=== PATIENT | female | born 1995 | race Two or more races ===

== ENCOUNTER 2018-07-24 17:47 | Emergency (ER) | payer OTHER ==
[~2018-07-24] VITALS: Ht 165.1 cm; Wt 68.0 kg
[2018-07-24 19:23] LABS: Basophils # (auto) 0.1 uL; Basophils % (auto) 0.7 % (0.0-2.0); Eosinophils # (auto) 0.2 uL; Eosinophils % (auto) 1.9 % (0.0-7.0); Hematocrit 40.4 % (36.0-46.0); Hemoglobin 13.7 g/dL (12.2-16.2); Lymphocytes # (auto) 2.2 uL; Lymphocytes % (auto) 25.2 % (10.0-50.0); Mean Corpuscular Hemoglobin 30.3 pg (28.0-32.0); Mean Corpuscular Hgb Conc. 33.9 g/dL (32.0-36.0); Mean Corpuscular Volume 89.3 fL (80.0-100.0); Monocytes # (auto) 0.6 uL; Monocytes % (auto) 7.1 % (0.0-12.0); Neutrophils # (auto) 5.8 uL; Neutrophils % (auto) 65.1 % (37.0-80.0); Platelet Count (auto) 254 10^3/uL (140-450); Red Blood Cells 4.52 10^6/uL (4.0-5.20); Red Cell Distribution Width 12.5 % (11.8-14.3); White Blood Cell 8.9 10^3/uL (4.4-10.8)
[2018-07-24 19:30] LABS: Albumin 3.9 g/dL (3.4-5.0); Potassium 3.5 mmol/L (3.5-5.1)
[2018-07-24 19:34] LABS: BUN/Creatinine Ratio 15.9; Bilirubin, Total 0.3 mg/dL (0.2-1.0); Total Protein 6.8 g/dL (6.4-8.2)
[2018-07-24 20:37] LABS: Urine Bacteria NONE SEEN /hpf (None Seen); Urine Blood Negative /uL (Negative); Urine WBC <1 /hpf (0 - 5)
[2018-07-24 20:47] LABS: Alcohol, Urine < 3.0 mg/dL (0-5); Amphetamine Screen, Urine NEGATIVE (NEGATIVE); Barbiturate Scree,Urine NEGATIVE (NEGATIVE); Benzodiazephine Screen, Urine NEGATIVE (NEGATIVE); Cannabinoid Screen, Urine NEGATIVE (NEGATIVE); Cocaine Screen, Urine NEGATIVE (NEGATIVE); Opiate Scree,Urine NEGATIVE (NEGATIVE); Phencyclidine Screen, Urine NEGATIVE (NEGATIVE)
[2018-07-24 20:48] LABS: Urine Pregnacy Test Negative (Negative)
[2018-07-25 02:11] VITALS: BP 97/70
== END 2018-07-25 00:27 | disposition home or self-care (01) ==
LOC: ER 17:47
DX: G40.909 Epilepsy, unspecified, not intractable, without status epilepticus (principal); M25.511 Pain in right shoulder
CPT/HCPCS: 36415; 70450; 72125; 73030; 80053; 80307; 81001; 81025; 85025

== ENCOUNTER 2018-07-29 14:33 | Emergency (ER) | payer SELFPAY ==
[~2018-07-29] VITALS: Ht 162.6 cm; Wt 49.9 kg
[2018-07-29] MEDS ORDERED: SODIUM CHLORIDE 0.9% 500 ML IVB ONE (14:51)
[2018-07-29] MEDS ORDERED: LORazepam 2MG/ML-1ML VIAL ONE (15:20)
[2018-07-29] MEDS ORDERED: LORazepam 2MG/ML-1ML VIAL IV ONE (15:30)
[2018-07-29] MEDS ORDERED: diphenhdrAMINE HCL 50 MG/1 ML VL IV ONE (15:30)
[2018-07-29 15:45] LABS: Basophils # (auto) 0.1 uL; Basophils % (auto) 0.4 % (0.0-2.0); Eosinophils # (auto) 0.1 uL; Eosinophils % (auto) 0.7 % (0.0-7.0); Hematocrit 45.5 % (36.0-46.0); Lymphocytes # (auto) 2.6 uL; Lymphocytes % (auto) 20.2 % (10.0-50.0); Mean Corpuscular Volume 90.7 fL (80.0-100.0); Monocytes # (auto) 1.1 uL; Monocytes % (auto) 8.2 % (0.0-12.0); Neutrophils # (auto) 9.2 uL; Neutrophils % (auto) 70.5 % (37.0-80.0); Platelet Count (auto) 365 10^3/uL (140-450); Red Blood Cells 5.02 10^6/uL (4.0-5.20); Red Cell Distribution Width 12.7 % (11.8-14.3); White Blood Cell 13.1 10^3/uL (4.4-10.8)
[2018-07-29 16:09] LABS: Alanine Aminotransferase 17 U/L (13-56); Albumin 4.4 g/dL (3.4-5.0); Anion Gap 12 (5-15); Blood Alcohol < 3.0 mg/dL (0-5); Blood Urea Nitrogen 11 mg/dL (7-18); Calcium 8.8 mg/dL (8.5-10.1); Carbon Dioxide 20 mmol/L (21-32); Chloride 107 mmol/L (98-107); Glucose 95 mg/dL (74-106); Potassium 3.2 mmol/L (3.5-5.1); Sodium 139 mmol/L (136-145)
[2018-07-29 16:13] LABS: Alkaline Phosphatase 52 U/L (45-117); Aspartate Aminotransferase 13 U/L (15-37); Bilirubin, Total 0.6 mg/dL (0.2-1.0); GFR African American 96 mL/min; GFR Non-African American 80 mL/min; Total Protein 7.7 g/dL (6.4-8.2)
[2018-07-29 16:43] VITALS: BP 113/70
[2018-07-29 18:31] LABS: Urine Pregnacy Test Negative (Negative)
[2018-07-29] MEDS ORDERED: POTASSIUM CHL 20MEQ/100ML 100 ML IV ONE (19:00)
[2018-07-29] MEDS ORDERED: risperiDONE 1 MG TAB PO ONE (19:00)
[2018-07-29 19:31] LABS: Alcohol, Urine < 3.0 mg/dL (0-5); Amphetamine Screen, Urine NEGATIVE (NEGATIVE); Barbiturate Scree,Urine NEGATIVE (NEGATIVE); Benzodiazephine Screen, Urine NEGATIVE (NEGATIVE); Cannabinoid Screen, Urine NEGATIVE (NEGATIVE); Cocaine Screen, Urine NEGATIVE (NEGATIVE); Opiate Scree,Urine NEGATIVE (NEGATIVE); Phencyclidine Screen, Urine NEGATIVE (NEGATIVE)
== END 2018-07-29 19:05 | disposition left against medical advice (07) ==
LOC: ER 14:33 → EDBD 14:33 → ER 19:05
DX: R56.9 Unspecified convulsions (principal); Z53.29 Procedure and treatment not carried out because of patient's decision for other reasons
CPT/HCPCS: 36415; 80053; 80307; 80320; 81025; 85025; 96361; 96374; 96375; 99283; J1200; J2060

== ENCOUNTER 2019-12-31 09:18 | Inpatient (IN) | payer OTHER ==
[~2019-12-31] VITALS: Ht 162.6 cm; Wt 63.8 kg
[2019-12-31 09:45] LABS: Basophils # (auto) 0 10 ^3/uL (0-0.2); Basophils % (auto) 0.6 % (0.0-2.0); Eosinophils # (auto) 0 10 ^3/uL (0-0.8); Eosinophils % (auto) 0.6 % (0.0-7.0); Hematocrit 41.6 % (36.0-46.0); Hemoglobin 14.4 g/dL (12.2-16.2); Lymphocytes # (auto) 1.8 10 ^3/uL (0.4-5.4); Mean Corpuscular Hemoglobin 29.5 pg (28.0-32.0); Mean Corpuscular Hgb Conc. 34.5 g/dL (32.0-36.0); Mean Corpuscular Volume 85.5 fL (80.0-100.0); Monocytes # (auto) 0.5 10 ^3/uL (0-1.3); Monocytes % (auto) 7.2 % (0.0-12.0); Neutrophils # (auto) 4.2 10 ^3/uL (1.6-8.6); Neutrophils % (auto) 64.6 % (37.0-80.0); Platelet Count (auto) 197 10^3/uL (140-450); Red Blood Cells 4.87 10^6/uL (4.0-5.20); Red Cell Distribution Width 12.8 % (11.8-14.3); White Blood Cell 6.5 10^3/uL (4.4-10.8)
[2019-12-31 10:05] LABS: Albumin 3.8 g/dL (3.4-5.0); Calcium 8.6 mg/dL (8.5-10.1); Potassium 3.5 mmol/L (3.5-5.1)
[2019-12-31 10:08] LABS: BUN/Creatinine Ratio 15.8; Bilirubin, Total 0.5 mg/dL (0.2-1.0); Total Protein 6.5 g/dL (6.4-8.2)
[2019-12-31 10:44] LABS: Urine WBC None Seen /hpf (0 - 5)
[2019-12-31 11:16] LABS: Alcohol, Urine < 3.0 mg/dL (0-10); Amphetamine Screen, Urine NEGATIVE (NEGATIVE); Barbiturate Scree,Urine NEGATIVE (NEGATIVE); Benzodiazephine Screen, Urine NEGATIVE (NEGATIVE); Cannabinoid Screen, Urine NEGATIVE (NEGATIVE); Cocaine Screen, Urine NEGATIVE (NEGATIVE); Opiate Scree,Urine NEGATIVE (NEGATIVE); Phencyclidine Screen, Urine NEGATIVE (NEGATIVE)
[2019-12-31 11:35] LABS: Urine Bacteria FEW /hpf (None Seen); Urine Blood Negative /uL (Negative); Urine Specific Gravity 1.007 (1.001-1.035)
[2019-12-31] MEDS ORDERED: LORazepam 2MG/ML-1ML VIAL ONE (11:56)
[2019-12-31] MEDS ORDERED: LORazepam 2MG/ML-1ML VIAL IV ONE ×3 (12:15→18:00)
[2019-12-31] MEDS ORDERED: NITROGLYCERIN 0.4 MG SL TAB SL PRN (13:15)
[2019-12-31] MEDS ORDERED: DOCUSATE CALCIUM 240 MG CAP PO PRN (13:15)
[2019-12-31] MEDS ORDERED: LABETALOL HCL 5 MG/ML 4ML SYRINGE IV PRN (13:15)
[2019-12-31] MEDS ORDERED: D5W/SOD CHLO 0.9% 1,000 ML IV ONE (13:15)
[2019-12-31] MEDS ORDERED: MORPHINE SULF INJ 2 MG/ML SYRINGE 1ML IV PRN (13:15)
[2019-12-31] MEDS: LORazepam 2MG/ML-1ML VIAL IV PRN (13:59)
[2019-12-31] MEDS ORDERED: LORazepam 2MG/ML-1ML VIAL IV PRN (15:15)
[2019-12-31] MEDS ORDERED: ONDANSETRON HCL 4 MG/2 ML VIAL IV PRN (17:45)
--- NOTE | 2019-12-31 19:14 | NUR ---
Opening Shift Note Assumed care of patient, patient resting with eyes closed at this time, on 2L of oxygen via NC with even and unlabored respirations, no S/S of distress/SOB or pain. Patient able to turn in bed independently, bed in lowest locked position, side rails up x3, and call light within reach. Instructed on POC and to call for assist PRN, will continue to monitor for changes Q1hr and PRN.
[2019-12-31 22:00] VITALS: BP 117/65
--- NOTE | 2020-01-01 00:51 | NUR ---
PATIENT HAD SEIZURE, LASTING 2 MINUTES. PATIENT AROUSED BY NAME AND SHAKING. BP 102/70, HR 151, BLOOD SUGAR 107, O2 96%.
[2020-01-01] MEDS: ONDANSETRON HCL 4 MG/2 ML VIAL IV PRN (01:46)
--- NOTE | 2020-01-01 04:22 | NUR ---
PATIENT HAD SEIZURE, LASTING 2 MINUTES, AROUSED TO NAME AND SHAKING. BP 106/61, HR 145, BLOOD SUGAR 121, O2 100%
[2020-01-01 05:00] VITALS: BP 110/57
[2020-01-01] MEDS: LORazepam 2MG/ML-1ML VIAL IV PRN ×2 (06:20→13:33)
[2020-01-01 06:21] LABS: INR 1.12 (0.9-1.15); Partial Thromboplastin Time 28.2 sec (23.0-31.2)
[2020-01-01 06:22] LABS: Basophils # (auto) 0 10 ^3/uL (0-0.2); Basophils % (auto) 0.4 % (0.0-2.0); Eosinophils # (auto) 0.1 10 ^3/uL (0-0.8); Eosinophils % (auto) 0.9 % (0.0-7.0); Hematocrit 40.6 % (36.0-46.0); Hemoglobin 13.8 g/dL (12.2-16.2); Lymphocytes # (auto) 1.6 10 ^3/uL (0.4-5.4); Lymphocytes % (auto) 23.7 % (10.0-50.0); Mean Corpuscular Hemoglobin 29.4 pg (28.0-32.0); Mean Corpuscular Volume 86.5 fL (80.0-100.0); Monocytes # (auto) 0.5 10 ^3/uL (0-1.3); Monocytes % (auto) 7.4 % (0.0-12.0); Neutrophils # (auto) 4.4 10 ^3/uL (1.6-8.6); Neutrophils % (auto) 67.6 % (37.0-80.0); Nucleated Red Blood Cells % 0.2 %; Platelet Count (auto) 208 10^3/uL (140-450); Red Blood Cells 4.69 10^6/uL (4.0-5.20); Red Cell Distribution Width 12.9 % (11.8-14.3); White Blood Cell 6.6 10^3/uL (4.4-10.8)
[2020-01-01 06:34] LABS: Potassium 3.4 mmol/L (3.5-5.1)
[2020-01-01 06:46] LABS: Albumin 3.5 g/dL (3.4-5.0); Bilirubin, Total 0.8 mg/dL (0.2-1.0); Calcium 8.3 mg/dL (8.5-10.1); Magnesium 2.3 mg/dL (1.6-2.6); Phosphorus 2.8 mg/dL (2.5-4.90); Total Protein 6.2 g/dL (6.4-8.2)
--- NOTE | 2020-01-01 06:53 | NUR ---
SEIZURE PATIENT HAD SEIZURE LASTING 2 MINUTES. VSS BP 124/71, HR 99, O2 99%
--- NOTE | 2020-01-01 07:30 | NUR ---
Opening Shift Note Assumed care of patient, awake and alert. No S/S of distress/SOB or pain. Instructed on POC and to call for assist PRN, will continue to monitor for changes Q1hr and PRN. Addendum: 01/01/20 at 1123 by CLIFF STAHL RN RN Patient not awake or alert. Patient just had an episode of seizure per night RN. Patient VSS. Patient currently dry heaving at this time. Patient comforted at fell back asleep. Patient instructed on POC however, will need reinforcement. Fall precautions in place per safety protocol. cardroom attendant at bedside to monitor patient.
[2020-01-01 09:00] VITALS: BP 104/50
[2020-01-01] MEDS: ENOXAPARIN SOD 40 MG/0.4 ML SYRINGE SC SCH (09:15)
[2020-01-01] MEDS: PANTOPRAZOLE 40 MG/10 ML VIAL INJ IV SCH (09:15)
[2020-01-01] MEDS ORDERED: PHENobarbital 32.4 MG TAB PO SCH (10:00)
[2020-01-01] MEDS ORDERED: PHENobarbital SODIUM INJ 600 MG in SODIUM CHL 0.9% 100 ML IV ONE (10:00)
--- NOTE | 2020-01-01 11:41 | NUR ---
Hospitalist MD Su at bedside, aware of patient status. Per MD Su, he will place social service consult for insurance verification. No new orders received at this time. Will cont to monitor patient.
--- NOTE | 2020-01-01 13:15 | NUR ---
Rolon catheter insertion Patient assessed and determined to be in need of rolon catheter. Order obtained from MD. Patient educated on catheter and reason for insertion. All questions answered. Rolon catheter 16 guage Polish inserted with clean sterile technique by student nurse. Patient tolerated well.
[2020-01-01 13:17] VITALS: BP 105/62
--- NOTE | 2020-01-01 13:35 | NUR ---
Seizure Patient has a seizure lasting 2 minutes. Administered Ativan at this time. Patient VSS BP 121/77 HR 111 O2 100% Temp 98.5.
[2020-01-01 17:00] VITALS: BP 127/73
--- NOTE | 2020-01-01 18:10 | NUR ---
Turcios Patient pulled on Turcios catheter and complaining of pain at this time. Assessed catheter, no trauma noted, however patient is becoming agitated, yelling and crying to "take it of.' Patient continues to pull on catheter. Turcios catheter was removed at this time to prevent trauma. Patient continues to complain of pain in the area. Will cont to monitor patient.
--- NOTE | 2020-01-01 18:23 | NUR ---
Seizure Patient experienced a seizure lasting 1 minute. Patient VSS. BP 114/66 HR 93 O2 100% Temp 98.5. Will cont to monitor patient.
--- NOTE | 2020-01-01 19:14 | NUR ---
Opening Shift Note Assumed care of patient, patient resting with eyes closed at this time, with sitter at bedside. Patient on 2L of oxygen via NC, with even and unlabored respirations, no S/S of distress/SOB or pain. Patient able to turn in bed independently, bed in lowest locked position, side rails up x2, and call light within reach. Instructed on POC and to call for assist PRN, will continue to monitor for changes Q1hr and PRN.
[2020-01-01 22:22] VITALS: BP 108/62
--- NOTE | 2020-01-02 01:48 | NUR ---
SEIZURE PATIENT HAD SEIZURE LASTING 2MINUTES. ADMINISTERED ATIVAN 1MG. PATIENT VITAL SIGNS BP 101/74, HR 119, O2 99%
[2020-01-02] MEDS: LORazepam 2MG/ML-1ML VIAL IV PRN ×3 (02:14→11:03)
[2020-01-02 04:56] VITALS: BP 100/62
[2020-01-02] MEDS: ONDANSETRON HCL 4 MG/2 ML VIAL IV PRN (07:19)
[2020-01-02] MEDS: ENOXAPARIN SOD 40 MG/0.4 ML SYRINGE SC SCH (08:47)
[2020-01-02] MEDS: PANTOPRAZOLE 40 MG/10 ML VIAL INJ IV SCH (08:47)
[2020-01-02 09:00] VITALS: BP 113/60
--- NOTE | 2020-01-02 11:00 | NUR ---
NIEVES CATHETER ATTEMPT UNSUCCESSFUL BY STUDENT NURSE AND THIS RN.
[2020-01-02] MEDS: CITALOPRAM HYDROBR 20 MG TAB PO SCH (11:38)
--- NOTE | 2020-01-02 12:00 | NUR ---
NO REESE AT BEDSIDE ATTEMPTING NIEVES CATHETER. NIEVES ATTEMPT UNSUCCESSFUL.
--- NOTE | 2020-01-02 12:10 | NUR ---
INFORMED Pramod CLAYTON REGARDING NIEVES CATHETER ATTEMPTS AND FOUL SMELLING DISCHARGE, RECEIVED NEW ORDERS SEE EMAR.
[2020-01-02 13:00] VITALS: BP 109/63
--- NOTE | 2020-01-02 13:00 | NUR ---
REGARDING UROLOGY: SPOKE TO Pramod SUMNER ABOUT NIEVES ATTEMPTS, STATED TO HAVE A Pramod PLACE NIEVES, Pramod STATES HE IS NOT HERE TO ATTEMPT NIEVES CATHETER.
--- NOTE | 2020-01-02 13:05 | NUR ---
EEG- ELECTROENCEPHALOGRAM COMPLETED AT 10:25.
--- NOTE | 2020-01-02 13:58 | NUR ---
SUCCESSFUL NIEVES CATHETER. PATIENT NOW SCREAMING IN PAIN STATING IT MALHOTRA. DU CLAYTON.
--- NOTE | 2020-01-02 14:00 | NUR ---
PATIENT PULLED NIEVES CATHETER OUT. NIEVES DRAINED 300MLS OF URINE. PATIENT SCREAMING IN PAIN STATING IT MALHOTRA. DU CLAYTON.
[2020-01-02] MEDS ORDERED: MORPHINE SULFATE 4 MG/ML SYR/VIAL ONE (14:09)
[2020-01-02] MEDS: MORPHINE SULFATE 4 MG/ML SYR/VIAL IV PRN (14:15)
[2020-01-02] MEDS ORDERED: FLUCONAZOLE 100 MG TAB PO ONE (14:30)
--- NOTE | 2020-01-02 14:31 | NUR ---
SPOKE TO Pramod CLAYTON. RECEIVED NEW ORDERS. TORB. WILL FOLLOW THROUGH.
[2020-01-02] MEDS: cefTRIAXone 1GM/50ML D5W 50 ML IV SCH (15:14)
--- NOTE | 2020-01-02 15:33 | NUR ---
Nutrition Assessment Notes Please refer to link for full assessment notes. Est Energy needs: 8014-5162 kcals (25-30 kcal/kgBW) Est Protein needs: 48-60 gms/day (0.8-1.0 gm/kgBW) Will continue to monitor and reassess prn. Addendum: 01/02/20 at [address] Amended: Links added.
--- NOTE | 2020-01-02 15:42 | NUR ---
ROUNDING: PATIENT DROWSY AT THIS TIME. WILL HOLD MEDICATIONS, UNTIL PATIENT MORE ALERT AND ORIENTED.
[2020-01-02 17:00] VITALS: BP 110/65
[2020-01-02] MEDS: PHENAZOPYRIDINE HCL 100 MG TAB PO SCH (19:04)
--- NOTE | 2020-01-02 19:14 | NUR ---
Opening Shift Note Assumed care of patient, resting with eyes closed at this time, alert to self. Patient on 2L of oxygen via NC with even and unlabored respirations, no S/S of distress/SOB or pain. Patient able to turn in bed independently, bed in lowest locked position, side rails up x2, call light within reach, and sitter at bedside. Instructed on POC and to call for assist PRN, will continue to monitor for changes Q1hr and PRN.
[2020-01-02 22:00] VITALS: BP 107/68
[2020-01-03 05:00] VITALS: BP 104/57
[2020-01-03] MEDS: LORazepam 2MG/ML-1ML VIAL IV PRN ×2 (06:21→12:34)
--- NOTE | 2020-01-03 07:30 | NUR ---
Opening Shift Note Assumed care of patient, awake and alert. No S/S of distress/SOB or pain. Patient garbled in speech, but responsive to questions. Instructed on POC and to call for assist PRN, will continue to monitor for changes Q1hr and PRN. Bed locked in lowest position with two side rails up and call light in reach.
[2020-01-03 08:00] VITALS: BP 101/58
[2020-01-03] MEDS: PHENAZOPYRIDINE HCL 100 MG TAB PO SCH ×4 (08:00→17:31)
[2020-01-03 09:00] VITALS: BP 101/58
[2020-01-03] MEDS ORDERED: IOHEXOL 300 MG/ML 100ML BOTTLE IJ ONE (09:46)
[2020-01-03] MEDS: ENOXAPARIN SOD 40 MG/0.4 ML SYRINGE SC SCH (10:00)
[2020-01-03] MEDS: PANTOPRAZOLE 40 MG/10 ML VIAL INJ IV SCH (11:52)
[2020-01-03] MEDS: CITALOPRAM HYDROBR 20 MG TAB PO SCH (11:52)
[2020-01-03] MEDS: cefTRIAXone 1GM/50ML D5W 50 ML IV SCH (11:52)
--- NOTE | 2020-01-03 12:30 | NUR ---
14 FR NIEVES CATHETER INSERTED DARK YELLOW/ KRISTOPHER URINE DRAINING MINIMALLY. UPON REPOSITIONING THE CATHETER OUTPUT WAS 250ML .
[2020-01-03] MEDS: MORPHINE SULFATE 4 MG/ML SYR/VIAL IV PRN (12:34)
[2020-01-03 13:00] VITALS: BP 123/72
[2020-01-03 15:49] LABS: Urine Bacteria FEW /hpf (None Seen); Urine Blood 3+ /uL (Negative); Urine Budding Yeast FEW /hpf (None Seen); Urine Mucus FEW (None Seen); Urine Specific Gravity 1.024 (1.001-1.035); Urine WBC 1 /hpf (0 - 5)
[2020-01-03 17:00] VITALS: BP 115/60
--- NOTE | 2020-01-03 19:40 | NUR ---
Opening Shift Note Assumed care of patient. Pt is drowsy but does respond to voice and physical stimuli. No S/S of distress/SOB or pain at this time. Sitter is at bedside, seizure precautions in place. Turcios is off the floor, below bladder, patent and draining pinkish color urine. Instructed on POC and to call for assist PRN. Bed locked, in lowest position, call light within reach. Will continue to monitor for changes Q1hr and PRN.
--- NOTE | 2020-01-03 21:10 | NUR ---
Dr. Armstrong at bedside
[2020-01-03 22:00] VITALS: BP 101/55
--- NOTE | 2020-01-04 01:49 | NUR ---
100 mls of urine so far draining from rolon for this shift Bladder scan showed 68 mls of urine in bladder. Will continue to monitor. Pt reporting pain from Rolon. Pt stating it "feels like I have to pee". Educated pt on function of the Rolon
--- NOTE | 2020-01-04 04:38 | NUR ---
Paged Hospitalist re: rolon drainage New orders received to irrigate Rolon. Will follow through with orders
[2020-01-04 05:00] VITALS: BP 111/66
--- NOTE | 2020-01-04 05:28 | NUR ---
Irrigated rolon with 30mL of NS Bladder scanner showed 68mLs of retained urine prior to irrigation. No resistance felt with irrigation. No output immediately after irrigation. Will continue to monitor
--- NOTE | 2020-01-04 06:42 | NUR ---
200mL leandro colored urine noted in rolon bag Addendum: 01/04/20 at 0645 by JURGEN ROWE RN RN 150 mL
--- NOTE | 2020-01-04 07:30 | NUR ---
Opening Shift Note Assumed care of patient, awake and alert. No S/S of distress/SOB or pain. Sitter at bedside for fall risk and seizure precautions. Instructed on POC and to call for assist PRN, will continue to monitor for changes Q1hr and PRN. Bed is locked and in lowest position. Call light within reach.
[2020-01-04 08:00] VITALS: BP 113/70
[2020-01-04 09:00] VITALS: BP 113/70
--- NOTE | 2020-01-04 09:00 | NUR ---
PATIENT HAD SEIZURE LIKE ACTIVITY WHILE MEDICATING PATIENT. THE SEIZURE LIKE ACTIVITY WAS VISUALIZED TO HAVE HEAD MOVEMENT SIDE TO SIDE, IT LASTED ABOUT 1 MINUTE. PATIENT WAS ABLE TO RESPOND TO QUESTIONS AFTER SEIZURE LIKE ACTIVITY. PATIENT DID NOT COMPLAIN OF ANY DISTRESS, SOB OR PAIN.
[2020-01-04] MEDS: PHENAZOPYRIDINE HCL 100 MG TAB PO SCH ×2 (09:26→13:27)
[2020-01-04] MEDS: cefTRIAXone 1GM/50ML D5W 50 ML IV SCH (09:26)
[2020-01-04] MEDS: ENOXAPARIN SOD 40 MG/0.4 ML SYRINGE SC SCH ×2 (09:27→10:00)
[2020-01-04] MEDS: PANTOPRAZOLE 40 MG/10 ML VIAL INJ IV SCH (09:27)
[2020-01-04] MEDS: CITALOPRAM HYDROBR 20 MG TAB PO SCH ×2 (09:27→10:00)
[2020-01-04 15:05] VITALS: BP 113/70
--- NOTE | 2020-01-04 15:29 | NUR ---
DR. CLAYTON PATIENT WILL BE DISCHARGED WITH NIEVES. PATIENT NIEVES WILL BE ATTACHED TO LEG BAG. PATIENT GIVEN EDUCATION REGARDING NIEVES CARE IN DISCHARGE PAPERWORK. PATIENT VERBALIZED UNDERSTANDING.
--- NOTE | 2020-01-04 17:00 | NUR ---
DISCHARGED PATIENT WAS GIVEN ALL DISCHARGE PAPERWORK, ALL QUESTIONS AND CONCERNS ANSWERED. PATIENT TELEMONITOR NUMBER [id number] REMOVED AND SENT TO ICU HEART LAB. PATIENT NIEVES SWITCHED TO LEG BAG, PATIENT GIVEN EDUCATION REGARDING NIEVES CARE AND HOW TO EMPTY. PATIENT VERBALIZED UNDERSTANDING. IV removal IV DC'd ON RIGHT AC with clean sterile technique, catheter fully intact. Pressure dressing applied to site. Patient tolerated well.
== END 2020-01-04 17:00 | disposition home or self-care (01) | DRG 101 ==
LOC: EDBD 09:18 → ER 09:18 → TELE 09:19 → TELE-WESTW 18:15
PROVIDERS: ATTEND Family Medicine
DX: G40.409 Other generalized epilepsy and epileptic syndromes, not intractable, without status epilepticus (principal); N39.0 Urinary tract infection, site not specified; F41.9 Anxiety disorder, unspecified; R33.9 Retention of urine, unspecified; B37.3 Candidiasis of vulva and vagina; Z88.8 Allergy status to other drugs, medicaments and biological substances; Z79.899 Other long term (current) drug therapy; Z91.14 Patient's other noncompliance with medication regimen; Z91.19 Patient's noncompliance with other medical treatment and regimen
CPT/HCPCS: 36415; 70450; 70551; 71045; 74176; 80053; 80307; 81001; 81025; 82962; 83735; 84100; 84439; 84443; 84702; 85025; 85610; 85730; 87086; 95819; 96361; 96374; 96376; C9113; G0378; J0696; J2405; J7042; J7060

== ENCOUNTER 2020-01-05 17:12 | Emergency (ER) | payer OTHER, MEDICAID ==
[~2020-01-05] VITALS: Ht 154.9 cm; Wt 51.3 kg
[2020-01-05] MEDS ORDERED: AMMONIA 0.33 ML INHALANT IN ONE (18:20)
[2020-01-05 20:52] LABS: Basophils # (auto) 0.1 10 ^3/uL (0-0.2); Basophils % (auto) 0.6 % (0.0-2.0); Eosinophils # (auto) 0.1 10 ^3/uL (0-0.8); Hematocrit 42.1 % (36.0-46.0); Hemoglobin 14.4 g/dL (12.2-16.2); Lymphocytes # (auto) 1.8 10 ^3/uL (0.4-5.4); Lymphocytes % (auto) 17.9 % (10.0-50.0); Mean Corpuscular Hemoglobin 29.6 pg (28.0-32.0); Mean Corpuscular Hgb Conc. 34.2 g/dL (32.0-36.0); Mean Corpuscular Volume 86.4 fL (80.0-100.0); Monocytes # (auto) 0.9 10 ^3/uL (0-1.3); Monocytes % (auto) 8.5 % (0.0-12.0); Neutrophils # (auto) 7.4 10 ^3/uL (1.6-8.6); Nucleated Red Blood Cells % 0.1 %; Platelet Count (auto) 229 10^3/uL (140-450); Red Blood Cells 4.87 10^6/uL (4.0-5.20); Red Cell Distribution Width 13.3 % (11.8-14.3); White Blood Cell 10.3 10^3/uL (4.4-10.8)
[2020-01-05 21:10] LABS: Albumin 3.8 g/dL (3.4-5.0); BUN/Creatinine Ratio 17.5; Calcium 8.6 mg/dL (8.5-10.1); Potassium 3.4 mmol/L (3.5-5.1)
[2020-01-05 21:13] LABS: Bilirubin, Total 0.3 mg/dL (0.2-1.0)
[2020-01-05 22:22] VITALS: BP 95/73
== END 2020-01-05 22:47 | disposition home or self-care (01) ==
LOC: ER 17:12
DX: G40.909 Epilepsy, unspecified, not intractable, without status epilepticus (principal)
CPT/HCPCS: 36415; 74176; 80053; 85025

== ENCOUNTER 2020-01-27 16:02 | Emergency (ER) | payer OTHER, MEDICAID ==
[~2020-01-27] VITALS: Ht 170.2 cm; Wt 57.2 kg
[2020-01-27] MEDS ORDERED: SODIUM CHLORIDE 0.9% 1,000 ML IV ONE (16:30)
[2020-01-27] MEDS ORDERED: SODIUM CHLORIDE 0.9% 500 ML IVB ONE (16:30)
[2020-01-27] MEDS ORDERED: LORazepam 2MG/ML-1ML VIAL IV ONE (16:30)
[2020-01-27] MEDS ORDERED: LORazepam 2MG/ML-1ML VIAL IM ONE (16:45)
[2020-01-27 17:34] LABS: Basophils # (auto) 0 10 ^3/uL (0-0.2); Basophils % (auto) 0.5 % (0.0-2.0); Eosinophils # (auto) 0 10 ^3/uL (0-0.8); Eosinophils % (auto) 0.5 % (0.0-7.0); Hematocrit 42.9 % (36.0-46.0); Hemoglobin 14.7 g/dL (12.2-16.2); Lymphocytes # (auto) 1.6 10 ^3/uL (0.4-5.4); Lymphocytes % (auto) 19.2 % (10.0-50.0); Mean Corpuscular Hgb Conc. 34.3 g/dL (32.0-36.0); Mean Corpuscular Volume 87.3 fL (80.0-100.0); Monocytes # (auto) 0.5 10 ^3/uL (0-1.3); Monocytes % (auto) 6.5 % (0.0-12.0); Neutrophils # (auto) 6.1 10 ^3/uL (1.6-8.6); Neutrophils % (auto) 73.3 % (37.0-80.0); Platelet Count (auto) 222 10^3/uL (140-450); Red Blood Cells 4.91 10^6/uL (4.0-5.20); Red Cell Distribution Width 13.3 % (11.8-14.3); White Blood Cell 8.3 10^3/uL (4.4-10.8)
[2020-01-27 17:52] LABS: Albumin 4.3 g/dL (3.4-5.0); BUN/Creatinine Ratio 13.8; Calcium 8.6 mg/dL (8.5-10.1); Potassium 3.4 mmol/L (3.5-5.1)
[2020-01-27 17:55] LABS: Bilirubin, Total 0.5 mg/dL (0.2-1.0); Total Protein 7.5 g/dL (6.4-8.2)
[2020-01-27 18:03] LABS: Beta HCG, Quantitative < 1 mlU/mL (1-3); Thyroid Stimulating Hormone 1.01 uIU/mL (0.358-3.74)
[2020-01-27 21:00] VITALS: BP 96/52
[2020-01-28] MEDS ORDERED: CITA-244 PO (20:36)
[2020-01-28] MEDS ORDERED: LEVE500T32 PO (20:36)
== END 2020-01-27 22:55 | disposition left against medical advice (07) ==
LOC: EDBD 16:02 → ER 16:02
DX: G40.909 Epilepsy, unspecified, not intractable, without status epilepticus (principal)
CPT/HCPCS: 36415; 70450; 71045; 80053; 83735; 84443; 84702; 85025; 93005; 96360; 96361; 96372; 99285; J1953; J2060; J7060

== ENCOUNTER 2020-01-28 10:10 | Inpatient (IN) | payer OTHER, MEDICAID ==
[~2020-01-28] VITALS: Ht 157.5 cm; Wt 62.0 kg
[2020-01-28] MEDS ORDERED: SODIUM CHLORIDE 0.9% 1,000 ML IV ONE (10:30)
[2020-01-28] MEDS ORDERED: PROMETHAZINE HCL 25 MG/ML 1ML IV ONE (10:30)
[2020-01-28] MEDS ORDERED: HYDROmorphone HCL 2 MG/ML VL IV ONE (10:30)
[2020-01-28] MEDS ORDERED: KETOROLAC TROMETH 60MG/2ML VIAL IM ONE (11:00)
[2020-01-28 11:50] LABS: Albumin 4.5 g/dL (3.4-5.0); Calcium 8.6 mg/dL (8.5-10.1); Potassium 3.5 mmol/L (3.5-5.1)
[2020-01-28 11:54] LABS: BUN/Creatinine Ratio 15.6; Bilirubin, Total 0.8 mg/dL (0.2-1.0); Total Protein 7.7 g/dL (6.4-8.2)
[2020-01-28 12:01] LABS: Basophils # (auto) 0 10 ^3/uL (0-0.2); Basophils % (auto) 0.5 % (0.0-2.0); Eosinophils # (auto) 0 10 ^3/uL (0-0.8); Eosinophils % (auto) 0.5 % (0.0-7.0); Hematocrit 44.9 % (36.0-46.0); Hemoglobin 15.5 g/dL (12.2-16.2); Lymphocytes # (auto) 2.2 10 ^3/uL (0.4-5.4); Lymphocytes % (auto) 27.9 % (10.0-50.0); Mean Corpuscular Hemoglobin 30.1 pg (28.0-32.0); Mean Corpuscular Hgb Conc. 34.5 g/dL (32.0-36.0); Mean Corpuscular Volume 87.2 fL (80.0-100.0); Monocytes # (auto) 0.6 10 ^3/uL (0-1.3); Monocytes % (auto) 7.4 % (0.0-12.0); Neutrophils # (auto) 5.1 10 ^3/uL (1.6-8.6); Neutrophils % (auto) 63.7 % (37.0-80.0); Nucleated Red Blood Cells % 0.1 %; Platelet Count (auto) 256 10^3/uL (140-450); Red Blood Cells 5.16 10^6/uL (4.0-5.20); Red Cell Distribution Width 13.7 % (11.8-14.3); White Blood Cell 7.9 10^3/uL (4.4-10.8)
[2020-01-28 13:06] LABS: Urine Bacteria NONE SEEN /hpf (None Seen); Urine Blood TRACE /uL (Negative); Urine Mucus MODERATE (None Seen); Urine Specific Gravity 1.028 (1.001-1.035); Urine WBC 13 /hpf (0 - 5)
[2020-01-28 13:28] LABS: Alcohol, Urine < 3.0 mg/dL (0-10); Amphetamine Screen, Urine NEGATIVE (NEGATIVE); Barbiturate Scree,Urine NEGATIVE (NEGATIVE); Benzodiazephine Screen, Urine NEGATIVE (NEGATIVE); Cannabinoid Screen, Urine NEGATIVE (NEGATIVE); Cocaine Screen, Urine NEGATIVE (NEGATIVE); Opiate Scree,Urine NEGATIVE (NEGATIVE); Phencyclidine Screen, Urine NEGATIVE (NEGATIVE)
[2020-01-28] MEDS ORDERED: MORPHINE SULF INJ 2 MG/ML SYRINGE 1ML IV PRN ×3 (13:45→14:15)
[2020-01-28] MEDS ORDERED: NITROGLYCERIN 0.4 MG SL TAB SL PRN ×2 (13:45→14:15)
[2020-01-28] MEDS ORDERED: SUMAtriptan SUCCINATE 25 MG TAB PO PRN (14:15)
[2020-01-28] MEDS ORDERED: KETOROLAC TROMETH 30 MG/ML 1ML VIAL IV PRN (14:15)
[2020-01-28] MEDS ORDERED: ALUM & MAG HYDROX-SIMETH LIQ(MAALOX) 30 ML PO PRN (14:15)
[2020-01-28] MEDS ORDERED: PROMETHAZINE HCL 25 MG/ML 1ML IV PRN (14:15)
[2020-01-28] MEDS ORDERED: ACETAMINOPHEN 325 MG TAB PO PRN (14:15)
[2020-01-28] MEDS ORDERED: SODIUM CHLORIDE 0.9% 1,000 ML IV SCH (14:15)
[2020-01-28] MEDS ORDERED: HYDROcodone-ACET 5/325MG TAB PO PRN (14:15)
[2020-01-28] MEDS ORDERED: LORazepam 0.5 MG TAB PO PRN (14:15)
[2020-01-28] MEDS ORDERED: DOCUSATE SOD 100 MG CAP PO PRN (14:15)
[2020-01-28] MEDS ORDERED: AZITHROMYCIN 500MG/ 250ML 250 ML IV ONE (14:30)
[2020-01-28] MEDS ORDERED: FLUCONAZOLE 100 MG TAB PO ONE (14:30)
[2020-01-28 15:29] LABS: Cholesterol 186 mg/dL (< 200)
[2020-01-28 15:37] LABS: HDL Cholesterol 48 mg/dL (40-59); LDL Cholesterol 124 mg/dL (< 100); Triglycerides 92 mg/dL (< 150)
[2020-01-28 17:30] VITALS: BP 112/64
[2020-01-28] MEDS ORDERED: DexAMETHasone INJECTION 10 MG in D5W 5% 50 ML IV ONE (19:45)
[2020-01-28] MEDS ORDERED: LEVE500T32 PO (20:36)
[2020-01-28] MEDS ORDERED: CITA-244 PO (20:36)
[2020-01-28 21:00] VITALS: BP 108/53
[2020-01-28] MEDS: SODIUM CHLORIDE 0.9% 1,000 ML IV SCH (21:42)
[2020-01-28] MEDS: metroNIDAZOLE 500 MG TAB PO SCH (22:00)
[2020-01-28] MEDS: levETIRAcetam 500 MG TAB PO SCH (22:00)
[2020-01-28] MEDS: METOCLOPRAMIDE HCL 10 MG TAB PO SCH (22:00)
[2020-01-29] MEDS: SODIUM CHLORIDE 0.9% 1,000 ML IV SCH ×3 (03:46→19:45)
[2020-01-29 05:00] VITALS: BP 94/46
[2020-01-29] MEDS: METOCLOPRAMIDE HCL 10 MG TAB PO SCH ×3 (06:12→22:00)
[2020-01-29] MEDS: cefTRIAXone 1GM/50ML D5W 50 ML IV SCH (08:56)
[2020-01-29 08:58] VITALS: BP 96/62
[2020-01-29] MEDS: levETIRAcetam 500 MG TAB PO SCH ×2 (09:00→23:02)
[2020-01-29] MEDS: metroNIDAZOLE 500 MG TAB PO SCH ×2 (09:01→22:00)
[2020-01-29 09:31] LABS: Urine Bacteria FEW /hpf (None Seen); Urine Blood Negative /uL (Negative); Urine Specific Gravity 1.029 (1.001-1.035); Urine WBC 7 /hpf (0 - 5)
[2020-01-29 09:59] LABS: Alcohol, Urine < 3.0 mg/dL (0-10); Amphetamine Screen, Urine NEGATIVE (NEGATIVE); Barbiturate Scree,Urine NEGATIVE (NEGATIVE); Benzodiazephine Screen, Urine NEGATIVE (NEGATIVE); Cannabinoid Screen, Urine NEGATIVE (NEGATIVE); Cocaine Screen, Urine NEGATIVE (NEGATIVE); Opiate Scree,Urine NEGATIVE (NEGATIVE); Phencyclidine Screen, Urine NEGATIVE (NEGATIVE)
[2020-01-29] MEDS ORDERED: DexAMETHasone INJECTION 10 MG in D5W 5% 50 ML IV SCH (10:00)
[2020-01-29] MEDS: LORazepam 2MG/ML-1ML VIAL IV PRN (14:45)
[2020-01-29] MEDS ORDERED: LORazepam 2MG/ML-1ML VIAL ONE (14:50)
[2020-01-29 22:00] VITALS: BP 120/68
[2020-01-30] MEDS: LORazepam 2MG/ML-1ML VIAL IV PRN (00:19)
[2020-01-30] MEDS: SODIUM CHLORIDE 0.9% 1,000 ML IV SCH (03:45)
[2020-01-30 05:00] VITALS: BP 126/72
[2020-01-30 05:06] LABS: RPR Non Reactive (Non Reactive)
[2020-01-30] MEDS: METOCLOPRAMIDE HCL 10 MG TAB PO SCH (05:42)
[2020-01-30] MEDS: cefTRIAXone 1GM/50ML D5W 50 ML IV SCH (09:17)
[2020-01-30] MEDS: metroNIDAZOLE 500 MG TAB PO SCH (09:17)
[2020-01-30] MEDS: levETIRAcetam 500 MG TAB PO SCH (09:17)
[2020-02-01 18:02] LABS: Hepatitis A Ab IgM Negative; Hepatitis B Core IgM Negative
[2020-02-01 18:03] LABS: Hepatitis B Surface Antigen Negative (Negative); Hepatitis C Antibody Negative (Negative)
== END 2020-01-30 11:45 | disposition left against medical advice (07) | DRG 103 ==
LOC: ER 10:10 → TELE 10:11 → TELE-WESTW 17:42
PROVIDERS: ADMIT Hospitalist; ATTEND Hospitalist
DX: G43.111 Migraine with aura, intractable, with status migrainosus (principal); N39.0 Urinary tract infection, site not specified; G89.29 Other chronic pain; Z53.29 Procedure and treatment not carried out because of patient's decision for other reasons; F32.9 Major depressive disorder, single episode, unspecified; F43.10 Post-traumatic stress disorder, unspecified; G40.409 Other generalized epilepsy and epileptic syndromes, not intractable, without status epilepticus; Z82.0 Family history of epilepsy and other diseases of the nervous system; Z82.49 Family history of ischemic heart disease and other diseases of the circulatory system; Z91.19 Patient's noncompliance with other medical treatment and regimen; Z83.3 Family history of diabetes mellitus; Z82.3 Family history of stroke; Z91.013 Allergy to seafood; Z88.8 Allergy status to other drugs, medicaments and biological substances; N89.8 Other specified noninflammatory disorders of vagina; F41.9 Anxiety disorder, unspecified
CPT/HCPCS: 36415; 80053; 80061; 80074; 80307; 81001; 82962; 83036; 84443; 84484; 85025; 86592; 86703; 87040; 87081; 87086; 96361; 96365; 96372; G0378; J0696; J1100; J1885; J7060

== ENCOUNTER 2020-02-16 17:34 | Emergency (ER) | payer MEDICAID, OTHER ==
[~2020-02-16] VITALS: Ht 157.5 cm; Wt 51.3 kg
[~2020-02-16 17:34] MED LIST: CITA-244 PO; LEVE500T32 PO
[2020-02-16] MEDS ORDERED: methylPREDNISolone SOD SUCC 125 MG/2 ML VL IM ONE (20:15)
[2020-02-16] MEDS ORDERED: SUMAtriptan SUCCINATE 6 MG/0.5 ML VL SC ONE (20:15)
[2020-02-16] MEDS ORDERED: PROMETHAZINE HCL 25 MG/ML 1ML IM ONE (20:15)
[2020-02-16] MEDS ORDERED: KETOROLAC TROMETH 60MG/2ML VIAL IM ONE (20:15)
[2020-02-16 21:07] VITALS: BP 97/60
[2020-02-16] MEDS ORDERED: KETOROLAC TROMETH 30 MG/ML 1ML VIAL IV ONE (21:15)
[2020-02-16] MEDS ORDERED: PROMETHAZINE HCL 25 MG/ML 1ML IV ONE (21:15)
[2020-02-16] MEDS ORDERED: methylPREDNISolone SOD SUCC 125 MG/2 ML VL IV ONE (21:15)
[2020-02-16] MEDS ORDERED: cefTRIAXone 1GM/50ML D5W 50 ML IV ONE (21:15)
[2020-02-16] MEDS ORDERED: SODIUM CHLORIDE 0.9% 2,000 ML IV ONE (21:15)
[2020-02-16 23:31] LABS: Albumin 4.1 g/dL (3.4-5.0); Anion Gap 7 (5-15); Blood Urea Nitrogen 10 mg/dL (7-18); Calcium 8.6 mg/dL (8.5-10.1); Carbon Dioxide 22 mmol/L (21-32); Chloride 108 mmol/L (98-107); Glucose 90 mg/dL (74-106); Magnesium 2.1 mg/dL (1.6-2.6); Potassium 3.7 mmol/L (3.5-5.1); Sodium 137 mmol/L (136-145)
[2020-02-16 23:34] LABS: GFR African American 192 mL/min; GFR Non-African American 159 mL/min
[2020-02-16 23:37] LABS: Alanine Aminotransferase 14 U/L (13-56); Alkaline Phosphatase 57 U/L (45-117); Aspartate Aminotransferase 15 U/L (15-37); Bilirubin, Total 0.9 mg/dL (0.2-1.0); Total Protein 7.1 g/dL (6.4-8.2)
== END 2020-02-16 23:21 | disposition home or self-care (01) ==
LOC: ER 17:34
DX: G43.909 Migraine, unspecified, not intractable, without status migrainosus (principal); N39.0 Urinary tract infection, site not specified; R11.2 Nausea with vomiting, unspecified
CPT/HCPCS: 36415; 80053; 81002; 83735; 96372; 96374; 96375; 99284; J0696; J1885; J2550; J2930; J3030

== ENCOUNTER 2021-09-17 19:33 | Emergency (ER) | payer MEDICAID ==
[~2021-09-17] VITALS: Ht 154.9 cm; Wt 50.8 kg
[2021-09-17 19:59] VITALS: BP 100/51
[2021-09-17] MEDS ORDERED: KETOROLAC TROMETH 60MG/2ML VIAL IM ONE (21:00)
[2021-09-17 21:25] LABS: Basophils # (auto) 0 10 ^3/uL (0-0.2); Basophils % (auto) 0.4 % (0.0-2.0); Eosinophils # (auto) 0 10 ^3/uL (0-0.8); Eosinophils % (auto) 0.4 % (0.0-7.0); Hematocrit 39.3 % (36.0-46.0); Hemoglobin 13.5 g/dL (12.2-16.2); Lymphocytes # (auto) 1.6 10 ^3/uL (0.4-5.4); Lymphocytes % (auto) 22.2 % (10.0-50.0); Mean Corpuscular Hemoglobin 28.7 pg (28.0-32.0); Mean Corpuscular Hgb Conc. 34.3 g/dL (32.0-36.0); Mean Corpuscular Volume 83.9 fL (80.0-100.0); Monocytes # (auto) 0.5 10 ^3/uL (0-1.3); Neutrophils # (auto) 5.1 10 ^3/uL (1.6-8.6); Nucleated Red Blood Cells % 0.1 %; Red Blood Cells 4.69 10^6/uL (4.0-5.20); White Blood Cell 7.3 10^3/uL (4.4-10.8)
[2021-09-17 21:44] LABS: Albumin 3.9 g/dL (3.4-5.0); Potassium 3.6 mmol/L (3.5-5.1)
[2021-09-17 21:47] LABS: BUN/Creatinine Ratio 23.4; Bilirubin, Total 0.4 mg/dL (0.2-1.0); Total Protein 7.4 g/dL (6.4-8.2)
[2021-09-17 21:54] LABS: Urine Bacteria NONE SEEN /hpf (None Seen); Urine Blood Negative /uL (Negative); Urine Mucus FEW (None Seen); Urine Specific Gravity 1.027 (1.001-1.035); Urine WBC 14 /hpf (0 - 5)
== END 2021-09-18 02:42 | disposition home or self-care (01) ==
LOC: ER 19:33
DX: M79.10 Myalgia, unspecified site (principal); R11.2 Nausea with vomiting, unspecified; R30.0 Dysuria; Z79.899 Other long term (current) drug therapy; Z88.8 Allergy status to other drugs, medicaments and biological substances; Z91.018 Allergy to other foods; Z91.013 Allergy to seafood
CPT/HCPCS: 36415; 74176; 80053; 81001; 84702; 85025

== ENCOUNTER 2021-12-30 10:05 | Emergency (ER) | payer MEDICAID ==
[~2021-12-30] VITALS: Ht 154.9 cm; Wt 60.6 kg
[2021-12-30 10:46] LABS: Basophils # (auto) 0 10 ^3/uL (0-0.2); Basophils % (auto) 0.4 % (0.0-2.0); Eosinophils # (auto) 0 10 ^3/uL (0-0.8); Eosinophils % (auto) 0.2 % (0.0-7.0); Hematocrit 37.2 % (36.0-46.0); Hemoglobin 12.2 g/dL (12.2-16.2); Lymphocytes # (auto) 0.5 10 ^3/uL (0.4-5.4); Lymphocytes % (auto) 11.5 % (10.0-50.0); Mean Corpuscular Hemoglobin 28.2 pg (28.0-32.0); Mean Corpuscular Hgb Conc. 32.8 g/dL (32.0-36.0); Mean Corpuscular Volume 86.1 fL (80.0-100.0); Monocytes # (auto) 0.6 10 ^3/uL (0-1.3); Monocytes % (auto) 13.1 % (0.0-12.0); Neutrophils # (auto) 3.6 10 ^3/uL (1.6-8.6); Neutrophils % (auto) 74.8 % (37.0-80.0); Nucleated Red Blood Cells % 0.2 %; Red Blood Cells 4.32 10^6/uL (4.0-5.20); Red Cell Distribution Width 13.5 % (11.8-14.3); White Blood Cell 4.8 10^3/uL (4.4-10.8)
[2021-12-30 11:11] LABS: Albumin 3.7 g/dL (3.4-5.0); Calcium 7.9 mg/dL (8.5-10.1); Potassium 3.6 mmol/L (3.5-5.1)
[2021-12-30 11:16] LABS: Bilirubin, Total 0.4 mg/dL (0.2-1.0); Total Protein 7.2 g/dL (6.4-8.2)
[2021-12-30 11:24] LABS: BUN/Creatinine Ratio 16.2
[2021-12-30 11:46] LABS: Urine Bacteria FEW /hpf (None Seen); Urine Blood Negative /uL (Negative); Urine Mucus FEW (None Seen); Urine Specific Gravity 1.031 (1.001-1.035); Urine WBC 29 /hpf (0 - 5)
[2021-12-30] MEDS ORDERED: cefTRIAXone 1GM/50ML D5W 50 ML IV ONE (13:30)
[2021-12-30] MEDS ORDERED: SENN1TAB88 PO (14:22)
[2021-12-30] MEDS ORDERED: TRAM50TA2 PO (14:22)
[2021-12-30] MEDS ORDERED: METO-281 PO (14:22)
[2021-12-30] MEDS ORDERED: CIPR-173 PO (14:22)
[2021-12-30] MEDS ORDERED: ACETAMINOPHEN 500 MG TAB PO ONE (14:30)
[2021-12-30 14:32] VITALS: BP 109/64
== END 2021-12-30 14:49 | disposition home or self-care (01) ==
LOC: ER 10:10
DX: N39.0 Urinary tract infection, site not specified (principal); R16.2 Hepatomegaly with splenomegaly, not elsewhere classified; Z79.899 Other long term (current) drug therapy; Z88.8 Allergy status to other drugs, medicaments and biological substances; Z91.018 Allergy to other foods; Z91.013 Allergy to seafood
CPT/HCPCS: 36415; 74176; 80053; 81001; 81025; 85025; 96365; 99284; J0696

== ENCOUNTER 2022-02-19 10:05 | Inpatient (IN) | payer MEDICAID ==
[~2022-02-19] VITALS: Ht 157.5 cm; Wt 66.5 kg
[~2022-02-19 10:05] MED LIST changes: +CIPR-173 PO; +METO-281 PO; +SENN1TAB88 PO; +TRAM50TA2 PO
[2022-02-19] MEDS ORDERED: ACCU-CHEK COMFORT CURVE STRIP VI ONE (10:30)
[2022-02-19 10:58] LABS: Basophils # (auto) 0 10 ^3/uL (0-0.2); Basophils % (auto) 0.4 % (0.0-2.0); Eosinophils # (auto) 0 10 ^3/uL (0-0.8); Eosinophils % (auto) 0.2 % (0.0-7.0); Hemoglobin 13.8 g/dL (12.2-16.2); Lymphocytes % (auto) 15.1 % (10.0-50.0); Mean Corpuscular Hemoglobin 28.8 pg (28.0-32.0); Mean Corpuscular Hgb Conc. 32.9 g/dL (32.0-36.0); Mean Corpuscular Volume 87.5 fL (80.0-100.0); Monocytes # (auto) 0.3 10 ^3/uL (0-1.3); Monocytes % (auto) 5.2 % (0.0-12.0); Neutrophils # (auto) 5.3 10 ^3/uL (1.6-8.6); Neutrophils % (auto) 79.1 % (37.0-80.0); Nucleated Red Blood Cells % 0.1 %; Red Cell Distribution Width 13.4 % (11.8-14.3); White Blood Cell 6.7 10^3/uL (4.4-10.8)
[2022-02-19] MEDS ORDERED: LORazepam 2MG/ML-1ML VIAL IV ONE ×2 (11:30→13:00)
[2022-02-19 11:40] LABS: Albumin 3.9 g/dL (3.4-5.0); BUN/Creatinine Ratio 18.5; Bilirubin, Total 0.7 mg/dL (0.2-1.0); Calcium 8.4 mg/dL (8.5-10.1); Potassium 3.8 mmol/L (3.5-5.1); Total Protein 7.5 g/dL (6.4-8.2)
[2022-02-19] MEDS ORDERED: SODIUM CHLORIDE 0.9% 1,000 ML IV ONE ×2 (11:45)
[2022-02-19] MEDS ORDERED: ONDANSETRON HCL 4 MG/2 ML VIAL IV ONE (17:00)
[2022-02-19] MEDS ORDERED: NITROGLYCERIN 0.4 MG SL TAB SL PRN (18:30)
[2022-02-19] MEDS ORDERED: LORazepam 2MG/ML-1ML VIAL IV PRN (18:30)
[2022-02-19] MEDS ORDERED: ONDANSETRON HCL 4 MG/2 ML VIAL IV PRN (18:30)
[2022-02-19] MEDS ORDERED: MORPHINE SULFATE INJ 2 MG/ml SYRG IV PRN ×2 (18:30)
[2022-02-19] MEDS ORDERED: ACETAMINOPHEN 325 MG TAB PO PRN (18:30)
[2022-02-19] MEDS ORDERED: HYDROcodone-ACET 5/325MG TAB PO PRN (18:30)
[2022-02-19 20:36] LABS: Urine Bacteria NONE SEEN /hpf (None Seen); Urine Blood Negative /uL (Negative); Urine Specific Gravity 1.015 (1.001-1.035); Urine WBC <1 /hpf (0 - 5)
[2022-02-19 20:47] LABS: Amphetamine Screen, Urine NEGATIVE (NEGATIVE); Barbiturate Scree,Urine NEGATIVE (NEGATIVE); Benzodiazephine Screen, Urine POSITIVE (NEGATIVE); Cannabinoid Screen, Urine NEGATIVE (NEGATIVE); Cocaine Screen, Urine NEGATIVE (NEGATIVE); Phencyclidine Screen, Urine NEGATIVE (NEGATIVE)
[2022-02-19 20:56] LABS: Opiate Scree,Urine NEGATIVE (NEGATIVE)
[2022-02-20 00:05] LABS: Cholesterol 183 mg/dL (< 200); HDL Cholesterol 46 mg/dL (40-59); LDL Cholesterol 121 mg/dL (< 100); Triglycerides 86 mg/dL (< 150)
[2022-02-20 06:55] LABS: Basophils # (auto) 0 10 ^3/uL (0-0.2); Basophils % (auto) 0.5 % (0.0-2.0); Eosinophils # (auto) 0.1 10 ^3/uL (0-0.8); Eosinophils % (auto) 1.1 % (0.0-7.0); Hematocrit 41.5 % (36.0-46.0); Hemoglobin 13.4 g/dL (12.2-16.2); Lymphocytes # (auto) 1.6 10 ^3/uL (0.4-5.4); Lymphocytes % (auto) 28.4 % (10.0-50.0); Mean Corpuscular Hemoglobin 28.8 pg (28.0-32.0); Mean Corpuscular Hgb Conc. 32.2 g/dL (32.0-36.0); Mean Corpuscular Volume 89.3 fL (80.0-100.0); Monocytes # (auto) 0.5 10 ^3/uL (0-1.3); Neutrophils # (auto) 3.5 10 ^3/uL (1.6-8.6); Red Blood Cells 4.65 10^6/uL (4.0-5.20); Red Cell Distribution Width 13.4 % (11.8-14.3); White Blood Cell 5.7 10^3/uL (4.4-10.8)
[2022-02-20 07:37] LABS: BUN/Creatinine Ratio 17.7; Potassium 4.2 mmol/L (3.5-5.1)
[2022-02-20] MEDS ORDERED: OXcarbazepine 300 MG TAB PO SCH (10:00)
[2022-02-20] MEDS: OXcarbazepine 300 MG TAB PO SCH ×2 (10:18→21:11)
[2022-02-20] MEDS ORDERED: NALOXONE HCL 1MG/ML 2ML SYRINGE ONE (13:17)
[2022-02-20 16:30] VITALS: BP 105/60
[2022-02-20 16:49] VITALS: BP 105/60
[2022-02-20] MEDS ORDERED: OXCA600T3 PO (18:38)
[2022-02-20 22:00] VITALS: BP 93/49
[2022-02-21 05:00] VITALS: BP 83/44
[2022-02-21 06:00] VITALS: BP 93/54
[2022-02-22] MEDS ORDERED: ESCI10TA PO (09:22)
== END 2022-02-21 09:04 | disposition left against medical advice (07) | DRG 53 ==
LOC: EDBD 10:05 → ER 10:10 → TELE-CENTR 15:49 → TELE 18:26 → TELE-CENTR 02-20 15:56
PROVIDERS: ADMIT Registered Nurse; ATTEND Student in an Organized Health Care Education/Training Program
DX: G40.409 Other generalized epilepsy and epileptic syndromes, not intractable, without status epilepticus (principal); Z20.822 Contact with and (suspected) exposure to COVID-19; Z53.21 Procedure and treatment not carried out due to patient leaving prior to being seen by health care provider; Z79.899 Other long term (current) drug therapy; Z82.0 Family history of epilepsy and other diseases of the nervous system; Z82.3 Family history of stroke; Z82.49 Family history of ischemic heart disease and other diseases of the circulatory system; Z83.3 Family history of diabetes mellitus; Z98.51 Tubal ligation status; Z88.8 Allergy status to other drugs, medicaments and biological substances; Z91.013 Allergy to seafood
CPT/HCPCS: 36415; 70450; 80048; 80053; 80061; 80307; 81001; 81025; 82542; 82962; 83036; 84443; 85025; 87426; 93005; 96361; 96374; 96375; 96376; 99291; G0378; J2405; J7060

== ENCOUNTER 2022-02-21 13:07 | Inpatient (IN) | payer MEDICAID ==
[~2022-02-21] VITALS: Ht 162.6 cm; Wt 68.5 kg
[~2022-02-21 13:07] MED LIST changes: -CIPR-173 PO; -CITA-244 PO; -LEVE500T32 PO; -METO-281 PO; +OXCA600T3 PO; -SENN1TAB88 PO; -TRAM50TA2 PO
[2022-02-21] MEDS ORDERED: LORazepam 2MG/ML-1ML VIAL IV ONE ×2 (14:15→17:15)
[2022-02-21 14:23] LABS: Basophils # (auto) 0.1 10 ^3/uL (0-0.2); Basophils % (auto) 0.5 % (0.0-2.0); Eosinophils # (auto) 0 10 ^3/uL (0-0.8); Eosinophils % (auto) 0.4 % (0.0-7.0); Hematocrit 41.7 % (36.0-46.0); Lymphocytes # (auto) 1.7 10 ^3/uL (0.4-5.4); Mean Corpuscular Hgb Conc. 33.6 g/dL (32.0-36.0); Mean Corpuscular Volume 86.3 fL (80.0-100.0); Monocytes # (auto) 0.7 10 ^3/uL (0-1.3); Monocytes % (auto) 7.3 % (0.0-12.0); Neutrophils # (auto) 7.6 10 ^3/uL (1.6-8.6); Neutrophils % (auto) 74.8 % (37.0-80.0); Nucleated Red Blood Cells % 0.1 %; Red Blood Cells 4.83 10^6/uL (4.0-5.20); Red Cell Distribution Width 13.6 % (11.8-14.3); White Blood Cell 10.2 10^3/uL (4.4-10.8)
[2022-02-21 14:35] LABS: Albumin 4.1 g/dL (3.4-5.0); Anion Gap 5 (5-15); Blood Alcohol < 3.0 mg/dL (0-5); Blood Urea Nitrogen 14 mg/dL (7-18); Calcium 8.7 mg/dL (8.5-10.1); Carbon Dioxide 27 mmol/L (21-32); Chloride 108 mmol/L (98-107); Glucose 98 mg/dL (74-106); Potassium 4.2 mmol/L (3.5-5.1); Sodium 140 mmol/L (136-145)
[2022-02-21 14:40] LABS: Alanine Aminotransferase 20 U/L (13-56); Alkaline Phosphatase 68 U/L (45-117); Aspartate Aminotransferase 15 U/L (15-37); Bilirubin, Total 0.4 mg/dL (0.2-1.0); GFR African American 128 mL/min; GFR Non-African American 106 mL/min; Total Protein 7.6 g/dL (6.4-8.2)
[2022-02-21] MEDS ORDERED: LORazepam 2MG/ML-1ML VIAL ONE (17:01)
[2022-02-21] MEDS ORDERED: ACETAMINOPHEN 325 MG TAB PO PRN (17:15)
[2022-02-21] MEDS ORDERED: LORazepam 2MG/ML-1ML VIAL IV PRN ×2 (17:15→21:45)
[2022-02-21] MEDS: SODIUM CHLORIDE 0.9% 1,000 ML IV SCH (18:30)
[2022-02-21] MEDS ORDERED: levETIRAcetam 500 MG/5ML INJ IV ONE (22:21)
[2022-02-22 06:45] LABS: Basophils # (auto) 0.1 10 ^3/uL (0-0.2); Basophils % (auto) 0.8 % (0.0-2.0); Eosinophils # (auto) 0.1 10 ^3/uL (0-0.8); Eosinophils % (auto) 1.2 % (0.0-7.0); Hematocrit 40.7 % (36.0-46.0); Hemoglobin 13.6 g/dL (12.2-16.2); Lymphocytes % (auto) 26.9 % (10.0-50.0); Mean Corpuscular Hgb Conc. 33.3 g/dL (32.0-36.0); Mean Corpuscular Volume 87.1 fL (80.0-100.0); Monocytes # (auto) 0.7 10 ^3/uL (0-1.3); Monocytes % (auto) 8.9 % (0.0-12.0); Neutrophils # (auto) 4.6 10 ^3/uL (1.6-8.6); Neutrophils % (auto) 62.2 % (37.0-80.0); Nucleated Red Blood Cells % 0.1 %; Red Blood Cells 4.67 10^6/uL (4.0-5.20); Red Cell Distribution Width 13.1 % (11.8-14.3); White Blood Cell 7.4 10^3/uL (4.4-10.8)
[2022-02-22 07:08] LABS: Albumin 3.8 g/dL (3.4-5.0); BUN/Creatinine Ratio 25.5; Calcium 8.3 mg/dL (8.5-10.1)
[2022-02-22 07:09] LABS: Bilirubin, Total 0.6 mg/dL (0.2-1.0); Total Protein 6.9 g/dL (6.4-8.2)
[2022-02-22 08:10] VITALS: BP 112/53
[2022-02-22 08:44] VITALS: BP 112/53
[2022-02-22] MEDS ORDERED: ESCI10TA PO (09:22)
[2022-02-22] MEDS ORDERED: LORazepam 2MG/ML-1ML VIAL IV PRN (10:30)
[2022-02-22] MEDS ORDERED: OXcarbazepine 300 MG TAB PO ONE (10:30)
[2022-02-22] MEDS: SODIUM CHLORIDE 0.9% 1,000 ML IV SCH ×2 (11:09→21:51)
[2022-02-22] MEDS: ENOXAPARIN SOD 40 MG/0.4 ML SYRINGE SC SCH (11:10)
[2022-02-22 13:00] VITALS: BP 98/46
[2022-02-22] MEDS: ONDANSETRON HCL 4 MG/2 ML VIAL IV PRN (15:07)
[2022-02-22 15:53] LABS: Urine Bacteria NONE SEEN /hpf (None Seen); Urine Blood Negative /uL (Negative); Urine Mucus FEW (None Seen); Urine WBC 1 /hpf (0 - 5)
[2022-02-22 16:07] LABS: Barbiturate Scree,Urine NEGATIVE (NEGATIVE); Benzodiazephine Screen, Urine POSITIVE (NEGATIVE); Cannabinoid Screen, Urine NEGATIVE (NEGATIVE); Cocaine Screen, Urine NEGATIVE (NEGATIVE); Opiate Scree,Urine NEGATIVE (NEGATIVE); Phencyclidine Screen, Urine NEGATIVE (NEGATIVE)
[2022-02-22 16:15] LABS: Amphetamine Screen, Urine NEGATIVE (NEGATIVE)
[2022-02-22 17:38] VITALS: BP 94/46
[2022-02-22] MEDS ORDERED: LORazepam 2MG/ML-1ML VIAL IM PRN (20:45)
[2022-02-22 21:58] VITALS: BP 106/70
[2022-02-22] MEDS: OXcarbazepine 300 MG TAB PO SCH (22:00)
[2022-02-23 05:26] VITALS: BP 100/57
[2022-02-23 09:00] VITALS: BP 92/49
[2022-02-23] MEDS: OXcarbazepine 300 MG TAB PO SCH ×2 (10:00→10:06)
[2022-02-23] MEDS: ENOXAPARIN SOD 40 MG/0.4 ML SYRINGE SC SCH ×2 (10:00→10:06)
[2022-02-23] MEDS: ONDANSETRON HCL 4 MG/2 ML VIAL IV PRN (10:06)
[2022-02-23] MEDS ORDERED: OXCA150T3 PO (11:00)
[2022-02-23] MEDS: SODIUM CHLORIDE 0.9% 1,000 ML IV SCH (12:09)
[2022-02-23] MEDS: CITALOPRAM HYDROBR 20 MG TAB PO ONE ×2 (12:30→12:33)
[2022-02-23 13:00] VITALS: BP 99/55
[2022-02-24] MEDS ORDERED: CITALOPRAM HYDROBR 20 MG TAB PO SCH (10:00)
== END 2022-02-23 14:52 | disposition home or self-care (01) | DRG 53 ==
LOC: ER 13:07 → EDBD 13:07 → OVERFLOW 17:12 → WEST WING 22:40 → TELE-WESTW 02-22 01:00
PROVIDERS: ADMIT Nurse Practitioner Family; ATTEND Nurse Practitioner Family
DX: G40.209 Localization-related (focal) (partial) symptomatic epilepsy and epileptic syndromes with complex partial seizures, not intractable, without status epilepticus (principal); E11.9 Type 2 diabetes mellitus without complications; I10 Essential (primary) hypertension; Z20.822 Contact with and (suspected) exposure to COVID-19; Z79.899 Other long term (current) drug therapy; Z82.0 Family history of epilepsy and other diseases of the nervous system; Z82.3 Family history of stroke; Z82.49 Family history of ischemic heart disease and other diseases of the circulatory system; Z83.3 Family history of diabetes mellitus; Z98.51 Tubal ligation status; Z88.8 Allergy status to other drugs, medicaments and biological substances; Z91.013 Allergy to seafood; Z91.018 Allergy to other foods; Z91.199 Patient's noncompliance with other medical treatment and regimen due to unspecified reason
CPT/HCPCS: 36415; 70450; 80053; 80307; 80320; 81001; 84702; 85025; 87426; 95819; 96361; 96365; 96375; 96376; 99291; A4565; G0378; J2405; J7060

== ENCOUNTER 2022-04-25 22:26 | Emergency (ER) | payer MEDICAID ==
[~2022-04-25] VITALS: Ht 167.6 cm; Wt 68.3 kg
[~2022-04-25 22:26] MED LIST changes: +ESCI10TA PO; +OXCA150T3 PO; -OXCA600T3 PO
[2022-04-25] MEDS ORDERED: LORazepam 2MG/ML-1ML VIAL ONE (22:35)
[2022-04-25] MEDS ORDERED: ETOMIDATE (2MG/ML) 20ML VIAL IV ONE (22:43)
[2022-04-25] MEDS ORDERED: SUCCINYLCHOLINE CHLORIDE 20 MG/ML 10ML VIAL IV ONE (22:44)
[2022-04-25] MEDS ORDERED: ROCURONIUM 10MG/ML 10ML VIAL IV ONE (22:46)
[2022-04-25] MEDS: PROPOFOL 100 ML IV SCH (22:50)
[2022-04-25] MEDS ORDERED: PROPOFOL 100 ML IV ONE (22:51)
[2022-04-25 22:55] VITALS: BP 93/66
[2022-04-25] MEDS ORDERED: MIDAZOLAM DRIP 50 mg/50mL 50 ML IV ONE (22:58)
[2022-04-25 23:00] LABS: Basophils # (auto) 0.1 10 ^3/uL (0-0.2); Basophils % (auto) 0.8 % (0.0-2.0); Eosinophils # (auto) 0.1 10 ^3/uL (0-0.8); Eosinophils % (auto) 0.6 % (0.0-7.0); Hematocrit 33.7 % (36.0-46.0); Hemoglobin 11.2 g/dL (12.2-16.2); Lymphocytes # (auto) 1.8 10 ^3/uL (0.4-5.4); Lymphocytes % (auto) 18.2 % (10.0-50.0); Mean Corpuscular Hemoglobin 28.3 pg (28.0-32.0); Mean Corpuscular Hgb Conc. 33.3 g/dL (32.0-36.0); Mean Corpuscular Volume 85.1 fL (80.0-100.0); Monocytes # (auto) 0.6 10 ^3/uL (0-1.3); Monocytes % (auto) 6.4 % (0.0-12.0); Neutrophils # (auto) 7.3 10 ^3/uL (1.6-8.6); Nucleated Red Blood Cells % 0.1 %; Red Blood Cells 3.96 10^6/uL (4.0-5.20); Red Cell Distribution Width 13.8 % (11.8-14.3); White Blood Cell 9.8 10^3/uL (4.4-10.8)
[2022-04-25 23:18] LABS: Lactic Acid w/Reflex 2.5 mmol/L (0.4-2.0)
[2022-04-25 23:47] LABS: Albumin 3.6 g/dL (3.4-5.0); Calcium 8.8 mg/dL (8.5-10.1); Potassium 3.6 mmol/L (3.5-5.1)
[2022-04-25 23:49] LABS: Bilirubin, Total 0.4 mg/dL (0.2-1.0); Total Protein 6.8 g/dL (6.4-8.2)
[2022-04-26] MEDS ORDERED: LORazepam 2MG/ML-1ML VIAL IV ONE
[2022-04-26] MEDS ORDERED: SUCCINYLCHOLINE CHLORIDE 20 MG/ML 10ML VIAL IV ONE
[2022-04-26] MEDS ORDERED: MIDAZOLAM HCL 5 MG/ML-1ML VIAL IV ONE
[2022-04-26] MEDS ORDERED: ETOMIDATE (2MG/ML) 20ML VIAL IV ONE
[2022-04-26] MEDS ORDERED: MIDAZOLAM DRIP 50 mg/50mL 50 ML IV SCH
[2022-04-26] MEDS ORDERED: ROCURONIUM 10MG/ML 10ML VIAL IV ONE ×5 (00:18→03:18)
[2022-04-26 02:15] VITALS: BP 118/60
[2022-04-26 02:16] LABS: Urine Bacteria FEW /hpf (None Seen); Urine Blood Negative /uL (Negative); Urine Mucus FEW (None Seen); Urine Specific Gravity 1.014 (1.001-1.035); Urine WBC 1 /hpf (0 - 5)
[2022-04-26 02:25] LABS: Alcohol, Urine < 3.0 mg/dL (0-10); Amphetamine Screen, Urine NEGATIVE (NEGATIVE); Barbiturate Scree,Urine NEGATIVE (NEGATIVE); Cannabinoid Screen, Urine NEGATIVE (NEGATIVE)
[2022-04-26 02:28] LABS: Benzodiazephine Screen, Urine NEGATIVE (NEGATIVE); Cocaine Screen, Urine NEGATIVE (NEGATIVE); Opiate Scree,Urine NEGATIVE (NEGATIVE); Phencyclidine Screen, Urine NEGATIVE (NEGATIVE)
[2022-04-26] MEDS ORDERED: fentaNYL Drip 2500mCg/250mlNS 250 ML IV SCH (03:30)
[2022-04-26 03:50] VITALS: BP 120/55
[2022-04-26 04:12] VITALS: BP 120/55
[2022-04-26] MEDS ORDERED: SODIUM CHLORIDE 0.9% 2,000 ML IV ONE (04:15)
[2022-04-26] MEDS: PROPOFOL 100 ML IV SCH (05:11)
[2022-04-26 05:15] VITALS: BP 120/64
== END 2022-04-26 05:57 | disposition short-term general hospital (02) ==
LOC: EDBD 22:26 → ER 22:26
DX: G40.901 Epilepsy, unspecified, not intractable, with status epilepticus (principal); R41.82 Altered mental status, unspecified; R06.89 Other abnormalities of breathing; Z20.822 Contact with and (suspected) exposure to COVID-19; Z98.51 Tubal ligation status; Z88.8 Allergy status to other drugs, medicaments and biological substances; Z88.6 Allergy status to analgesic agent
CPT/HCPCS: 31500; 36415; 36600; 70450; 71045; 71250; 72125; 74176; 80053; 80307; 80320; 81001; 82553; 82805; 83605; 84484; 85025; 87070; 87205; 87426; 87804; 96361; 96374; 99285; J0330; J2060; J2250; J2704; 94002

== ENCOUNTER 2022-09-27 14:37 | Emergency (ER) | payer MEDICAID ==
[~2022-09-27] VITALS: Ht 154.9 cm; Wt 76.9 kg
[~2022-09-27 14:37] MED LIST changes: +DIVA125C8
[2022-09-27 15:34] LABS: Basophils # (auto) 0 10 ^3/uL (0-0.2); Eosinophils # (auto) 0.1 10 ^3/uL (0-0.8); Hematocrit 36.7 % (36.0-46.0); Mean Corpuscular Hemoglobin 25.6 pg (28.0-32.0); Monocytes # (auto) 0.5 10 ^3/uL (0-1.3)
[2022-09-27 15:35] LABS: Basophils % (auto) 0.2 % (0.0-2.0); Hemoglobin 11.6 g/dL (12.2-16.2); Lymphocytes # (auto) 0.7 10 ^3/uL (0.4-5.4); Mean Corpuscular Hgb Conc. 31.7 g/dL (32.0-36.0); Mean Corpuscular Volume 80.7 fL (80.0-100.0); Neutrophils # (auto) 6.5 10 ^3/uL (1.6-8.6); Neutrophils % (auto) 83.8 % (37.0-80.0); Red Blood Cells 4.55 10^6/uL (4.0-5.20); White Blood Cell 7.8 10^3/uL (4.4-10.8)
[2022-09-27] MEDS ORDERED: traMADol HCL 50 MG TAB PO ONE (15:45)
[2022-09-27 15:58] LABS: Urine Bacteria NONE SEEN /hpf (None Seen); Urine Blood Negative /uL (Negative); Urine Mucus FEW (None Seen); Urine Specific Gravity 1.028 (1.001-1.035); Urine WBC 4 /hpf (0 - 5)
[2022-09-27 16:00] LABS: Anion Gap 8 (5-15); BUN/Creatinine Ratio 21.1 (10.0-20.0); Blood Urea Nitrogen 15 mg/dL (7-18); Carbon Dioxide 20 mmol/L (21-32); Chloride 109 mmol/L (98-107); GFR African American 126 mL/min; GFR Non-African American 104 mL/min; Glucose 116 mg/dL (74-106); Potassium 3.9 mmol/L (3.5-5.1); Sodium 137 mmol/L (136-145)
[2022-09-27 16:01] LABS: Alanine Aminotransferase 14 U/L (13-56); Albumin 3.5 g/dL (3.4-5.0); Alkaline Phosphatase 67 U/L (45-117); Aspartate Aminotransferase 14 U/L (15-37); Bilirubin, Total 0.3 mg/dL (0.2-1.0); Calcium 7.7 mg/dL (8.5-10.1); Total Protein 7.4 g/dL (6.4-8.2)
[2022-09-27 16:05] VITALS: BP 124/53
[2022-09-27] MEDS ORDERED: CIPR-173 PO (17:15)
[2022-09-27] MEDS ORDERED: ZOFR4T PO (17:15)
[2022-09-27] MEDS ORDERED: ONDANSETRON ODT 4 MG TAB PO ONE (17:15)
== END 2022-09-27 17:38 | disposition home or self-care (01) ==
LOC: ER 14:37
DX: N39.0 Urinary tract infection, site not specified (principal); Z98.51 Tubal ligation status; Z91.013 Allergy to seafood; Z88.6 Allergy status to analgesic agent
CPT/HCPCS: 36415; 74176; 80053; 81001; 85025; 99284; Q0162

== ENCOUNTER 2022-10-30 11:30 | Emergency (ER) | payer MEDICAID ==
[~2022-10-30] VITALS: Ht 154.9 cm; Wt 79.0 kg
[~2022-10-30 11:30] MED LIST changes: +CIPR-173 PO; +ZOFR4T PO
[2022-10-30] MEDS ORDERED: HYDROcodone-ACET 5/325MG TAB PO ONE (15:30)
[2022-10-30] MEDS ORDERED: IBU600T PO (15:35)
[2022-10-30 16:48] VITALS: BP 106/72; PULSE 76; RESP 20; TEMP 98; O2SAT 98
== END 2022-10-30 15:41 | disposition home or self-care (01) ==
LOC: ER 11:30
DX: S83.92XA Sprain of unspecified site of left knee, initial encounter (principal); M25.562 Pain in left knee; Z88.8 Allergy status to other drugs, medicaments and biological substances; Z79.899 Other long term (current) drug therapy; Z98.51 Tubal ligation status; Z91.013 Allergy to seafood; Z91.018 Allergy to other foods; X58.XXXA Exposure to other specified factors, initial encounter; Y93.89 Activity, other specified; Y92.89 Other specified places as the place of occurrence of the external cause; Y99.8 Other external cause status
CPT/HCPCS: 29505; 73562; 93971

== ENCOUNTER 2023-01-01 14:57 | Emergency (ER) | payer MEDICAID ==
[~2023-01-01] VITALS: Ht 154.9 cm; Wt 77.0 kg
[~2023-01-01 14:57] MED LIST changes: +IBU600T PO
[2023-01-01] MEDS ORDERED: LORazepam 2MG/ML-1ML VIAL ONE (15:14)
[2023-01-01] MEDS ORDERED: LORazepam 2MG/ML-1ML VIAL IM ONE ×2 (15:30)
[2023-01-01 15:43] VITALS: O2SAT 97
[2023-01-01] MEDS ORDERED: MIDAZOLAM HCL 5 MG/ML-1ML VIAL ONE (15:55)
[2023-01-01] MEDS ORDERED: MIDAZOLAM HCL 5 MG/ML-1ML VIAL IV ONE (16:00)
[2023-01-01 16:03] LABS: Basophils # (auto) 0 10 ^3/uL (0-0.2); Eosinophils # (auto) 0.1 10 ^3/uL (0-0.8); Monocytes # (auto) 0.5 10 ^3/uL (0-1.3); Monocytes % (auto) 8.3 % (0.0-12.0); Neutrophils # (auto) 4.1 10 ^3/uL (1.6-8.6); White Blood Cell 6.3 10^3/uL (4.4-10.8)
[2023-01-01 16:05] LABS: Basophils % (auto) 0.8 % (0.0-2.0); Hematocrit 33.8 % (36.0-46.0); Hemoglobin 10.9 g/dL (12.2-16.2); Lymphocytes # (auto) 1.6 10 ^3/uL (0.4-5.4); Lymphocytes % (auto) 24.6 % (10.0-50.0); Mean Corpuscular Hemoglobin 25.9 pg (28.0-32.0); Mean Corpuscular Hgb Conc. 32.3 g/dL (32.0-36.0); Mean Corpuscular Volume 80.2 fL (80.0-100.0); Neutrophils % (auto) 64.3 % (37.0-80.0); Red Blood Cells 4.21 10^6/uL (4.0-5.20); Red Cell Distribution Width 16.2 % (11.8-14.3)
[2023-01-01 16:10] LABS: Lactic Acid w/Reflex 6.1 mmol/L (0.4-2.0)
[2023-01-01] MEDS ORDERED: SODIUM CHLORIDE 0.9% 2,000 ML IV ONE (16:15)
[2023-01-01 16:20] LABS: Alanine Aminotransferase 12 U/L (7-40); Albumin 4.4 g/dL (3.2-4.8); Alkaline Phosphatase 58 U/L (46-116); Anion Gap 11 (5-15); Aspartate Aminotransferase 25 U/L (13-40); BUN/Creatinine Ratio 18.6 (10.0-20.0); Blood Urea Nitrogen 13 mg/dL (9-23); Calcium 8.9 mg/dL (8.5-10.1); Carbon Dioxide 22 mmol/L (20-30); Chloride 107 mmol/L (98-107); Glucose 205 mg/dL (74-106); Potassium 4.6 mmol/L (3.5-5.1); Sodium 140 mmol/L (136-145)
[2023-01-01 16:21] LABS: Bilirubin, Total 0.2 mg/dL (0.2-1.0); Total Protein 6.8 g/dL (5.7-8.2)
[2023-01-01] MEDS ORDERED: LORazepam 2MG/ML-1ML VIAL IV ONE (16:45)
[2023-01-01] MEDS ORDERED: VALPROATE INJ 250 MG in SODIUM CHL 0.9% 50 ML IV ONE (18:00)
[2023-01-01 18:38] LABS: Urine Amorphous Crystal FEW /hpf (None Seen); Urine Bacteria NONE SEEN /hpf (None Seen); Urine Blood Negative /uL (Negative); Urine Clarity HAZY (Clear); Urine Color Colorless (Yellow); Urine Protein, UAD Negative (Negative); Urine Specific Gravity 1.017 (1.001-1.035); Urine Urobilinogen Normal (Negative); Urine WBC 1 /hpf (0 - 5); Urine pH 7.5 (5.0-8.0)
[2023-01-01 18:48] LABS: Magnesium 1.8 mg/dL (1.6-2.6)
[2023-01-01 19:45] VITALS: PULSE 105; RESP 20; O2SAT 96
[2023-01-01] MEDS ORDERED: ACETAMINOPHEN 325 MG TAB PO ONE (20:45)
[2023-01-01 21:43] VITALS: BP 103/56; PULSE 125; RESP 20; TEMP 97.9; O2SAT 98
== END 2023-01-01 21:43 | disposition short-term general hospital (02) ==
LOC: ER 14:57 → EDBD 14:57 → ER 21:43
DX: R56.9 Unspecified convulsions (principal); R10.2 Pelvic and perineal pain; Z98.51 Tubal ligation status; Z79.899 Other long term (current) drug therapy
CPT/HCPCS: 36415; 80053; 81001; 83605; 83735; 84484; 84702; 85025; 93005; 96361; 96365; 96372; 96375; 99291; J2060; J2250; J7030

== ENCOUNTER 2023-01-10 19:44 | Inpatient (IN) | payer MEDICAID ==
[~2023-01-10] VITALS: Ht 167.6 cm; Wt 80.0 kg
[2023-01-10] MEDS ORDERED: LORazepam 2MG/ML-1ML VIAL ONE (19:47)
[2023-01-10] MEDS ORDERED: LORazepam 2MG/ML-1ML VIAL IV ONE (20:30)
[2023-01-10 22:22] LABS: Basophils # (auto) 0 10 ^3/uL (0-0.2); Basophils % (auto) 0.5 % (0.0-2.0); Eosinophils # (auto) 0.1 10 ^3/uL (0-0.8); Eosinophils % (auto) 0.7 % (0.0-7.0); Hematocrit 34.7 % (36.0-46.0); Hemoglobin 10.4 g/dL (12.2-16.2); Lymphocytes # (auto) 1.5 10 ^3/uL (0.4-5.4); Mean Corpuscular Hemoglobin 25.5 pg (28.0-32.0); Mean Corpuscular Hgb Conc. 29.8 g/dL (32.0-36.0); Mean Corpuscular Volume 85.5 fL (80.0-100.0); Monocytes # (auto) 0.5 10 ^3/uL (0-1.3); Monocytes % (auto) 6.1 % (0.0-12.0); Neutrophils # (auto) 5.8 10 ^3/uL (1.6-8.6); Neutrophils % (auto) 73.7 % (37.0-80.0); Nucleated Red Blood Cells % 0.1 %; Red Blood Cells 4.06 10^6/uL (4.0-5.20); Red Cell Distribution Width 16.5 % (11.8-14.3); White Blood Cell 7.9 10^3/uL (4.4-10.8)
[2023-01-10 22:36] LABS: Alkaline Phosphatase 57 U/L (46-116); Anion Gap 10 (5-15); Aspartate Aminotransferase < 8 U/L (13-40); BUN/Creatinine Ratio 20.3 (10.0-20.0); Blood Urea Nitrogen 12 mg/dL (9-23); Calcium 8.8 mg/dL (8.5-10.1); Carbon Dioxide 20 mmol/L (20-30); Chloride 111 mmol/L (98-107); Glucose 136 mg/dL (74-106); Potassium 3.6 mmol/L (3.5-5.1); Sodium 141 mmol/L (136-145)
[2023-01-10 22:37] LABS: Albumin 4.1 g/dL (3.2-4.8); Bilirubin, Total 0.2 mg/dL (0.2-1.0); Total Protein 6.3 g/dL (5.7-8.2)
[2023-01-10 22:45] LABS: Alanine Aminotransferase < 9 U/L (7-40)
[2023-01-10 23:28] VITALS: PULSE 89; RESP 16; O2SAT 97
[2023-01-11] LABS: Urine Bacteria NONE SEEN /hpf (None Seen); Urine Blood Negative /uL (Negative); Urine Clarity Clear (Clear); Urine Color Yellow (Yellow); Urine Mucus FEW (None Seen); Urine Protein, UAD TRACE (Negative); Urine Urobilinogen Normal (Negative); Urine WBC 2 /hpf (0 - 5); Urine pH 6.5 (5.0-8.0)
[2023-01-11] MEDS ORDERED: LACTATED RINGER'S 1,000 ML IV ONE (04:30)
[2023-01-11] MEDS ORDERED: HYDROcodone-ACET 5/325MG TAB PO PRN (05:15)
[2023-01-11] MEDS ORDERED: ONDANSETRON HCL 4 MG/2 ML VIAL IV PRN (05:15)
[2023-01-11] MEDS ORDERED: ACETAMINOPHEN 325 MG TAB PO PRN (05:15)
[2023-01-11] MEDS ORDERED: DOCUSATE SOD 100 MG CAP PO PRN (05:15)
[2023-01-11] MEDS ORDERED: LORazepam 2MG/ML-1ML VIAL IV PRN (05:15)
[2023-01-11] MEDS ORDERED: SODIUM CHLOR 0.9% PF (SALINE LOCK) 10ML VIAL/SYR IV SCH (06:00)
[2023-01-11] MEDS ORDERED: MORPHINE SULFATE INJ 2 MG/ml SYRG IV PRN (06:30)
[2023-01-11] MEDS ORDERED: NITROGLYCERIN 0.4 MG SL TAB SL PRN (06:30)
[2023-01-11 07:46] LABS: Albumin 3.8 g/dL (3.2-4.8); Alkaline Phosphatase 51 U/L (46-116); Anion Gap 10 (5-15); Aspartate Aminotransferase < 8 U/L (13-40); BUN/Creatinine Ratio 17.6 (10.0-20.0); Bilirubin, Total 0.4 mg/dL (0.2-1.0); Blood Urea Nitrogen 9 mg/dL (9-23); Calcium 8.4 mg/dL (8.5-10.1); Carbon Dioxide 20 mmol/L (20-30); Chloride 111 mmol/L (98-107); Glucose 102 mg/dL (74-106); Potassium 3.5 mmol/L (3.5-5.1); Sodium 141 mmol/L (136-145)
[2023-01-11 07:50] LABS: Basophils # (auto) 0 10 ^3/uL (0-0.2); Basophils % (auto) 0.6 % (0.0-2.0); Eosinophils # (auto) 0.1 10 ^3/uL (0-0.8); Eosinophils % (auto) 2.2 % (0.0-7.0); Hematocrit 35.8 % (36.0-46.0); Hemoglobin 11.3 g/dL (12.2-16.2); Lymphocytes # (auto) 1.5 10 ^3/uL (0.4-5.4); Lymphocytes % (auto) 25.2 % (10.0-50.0); Mean Corpuscular Hemoglobin 26.1 pg (28.0-32.0); Mean Corpuscular Hgb Conc. 31.5 g/dL (32.0-36.0); Mean Corpuscular Volume 82.8 fL (80.0-100.0); Monocytes # (auto) 0.5 10 ^3/uL (0-1.3); Monocytes % (auto) 8.7 % (0.0-12.0); Neutrophils # (auto) 3.6 10 ^3/uL (1.6-8.6); Neutrophils % (auto) 63.3 % (37.0-80.0); Nucleated Red Blood Cells % 0.1 %; Red Blood Cells 4.32 10^6/uL (4.0-5.20); White Blood Cell 5.8 10^3/uL (4.4-10.8)
[2023-01-11 07:55] LABS: Alanine Aminotransferase < 9 U/L (7-40)
[2023-01-11 08:00] VITALS: PULSE 75; RESP 16; TEMP 98; O2SAT 97
[2023-01-11] MEDS ORDERED: TOPIRAMATE 100 MG TAB PO SCH (10:00)
[2023-01-11] MEDS ORDERED: OXcarbazepine 300 MG TAB PO SCH (10:00)
[2023-01-11 11:30] VITALS: BP 120/70; PULSE 90; RESP 16; O2SAT 100
[2023-01-11 11:52] LABS: Amphetamine Screen, Urine Neg (NEGATIVE)
[2023-01-11 11:53] LABS: Barbiturate Scree,Urine Neg (NEGATIVE); Benzodiazephine Screen, Urine Neg (NEGATIVE); Cannabinoid Screen, Urine Neg (NEGATIVE); Cocaine Screen, Urine Neg (NEGATIVE); Opiate Scree,Urine Neg (NEGATIVE); Phencyclidine Screen, Urine Neg (NEGATIVE)
== END 2023-01-11 11:58 | disposition left against medical advice (07) | DRG 53 ==
LOC: EDBD 19:44 → ER 19:49 → TELE 01-11 06:24
PROVIDERS: ADMIT Internal Medicine; ATTEND Internal Medicine
DX: R56.9 Unspecified convulsions (principal); E87.8 Other disorders of electrolyte and fluid balance, not elsewhere classified; D64.9 Anemia, unspecified; E86.0 Dehydration; Z53.29 Procedure and treatment not carried out because of patient's decision for other reasons; J45.909 Unspecified asthma, uncomplicated; R73.9 Hyperglycemia, unspecified; Z91.013 Allergy to seafood; Z98.51 Tubal ligation status; Z91.041 Radiographic dye allergy status
CPT/HCPCS: 36415; 70450; 80053; 80307; 81001; 85025; 96374; G0378; J2405

== ENCOUNTER 2023-02-12 19:57 | Emergency (ER) | payer MEDICAID ==
[~2023-02-12] VITALS: Ht 154.9 cm; Wt 78.0 kg
[2023-02-12 21:49] LABS: Basophils # (auto) 0 10 ^3/uL (0-0.2); Basophils % (auto) 0.4 % (0.0-2.0); Eosinophils # (auto) 0 10 ^3/uL (0-0.8); Hemoglobin 11.5 g/dL (12.2-16.2); Monocytes # (auto) 0.5 10 ^3/uL (0-1.3); Neutrophils # (auto) 6.2 10 ^3/uL (1.6-8.6); Nucleated Red Blood Cells % 0.1 %; White Blood Cell 7.6 10^3/uL (4.4-10.8)
[2023-02-12 21:51] LABS: Eosinophils % (auto) 0.5 % (0.0-7.0); Hematocrit 36.8 % (36.0-46.0); Lymphocytes # (auto) 0.8 10 ^3/uL (0.4-5.4); Mean Corpuscular Hemoglobin 24.7 pg (28.0-32.0); Mean Corpuscular Hgb Conc. 31.3 g/dL (32.0-36.0); Neutrophils % (auto) 82.1 % (37.0-80.0); Red Blood Cells 4.65 10^6/uL (4.0-5.20); Red Cell Distribution Width 15.5 % (11.8-14.3)
[2023-02-12 21:56] LABS: Urine Bacteria FEW /hpf (None Seen); Urine Blood Negative /uL (Negative); Urine Clarity Clear (Clear); Urine Color Colorless (Yellow); Urine Protein, UAD Negative (Negative); Urine Specific Gravity 1.018 (1.001-1.035); Urine Urobilinogen Normal (Negative); Urine WBC 2 /hpf (0 - 5); Urine pH 6.5 (5.0-8.0)
[2023-02-12 22:08] LABS: Alanine Aminotransferase 10 U/L (7-40); Alkaline Phosphatase 84 U/L (46-116); Anion Gap 13 (5-15); BUN/Creatinine Ratio 13.5 (10.0-20.0); Blood Urea Nitrogen 10 mg/dL (9-23); Calcium 9.2 mg/dL (8.7-10.4); Carbon Dioxide 16 mmol/L (20-30); Chloride 107 mmol/L (98-107); Glucose 208 mg/dL (74-106); Lipase 41 U/L (12-53); Potassium 3.7 mmol/L (3.5-5.1); Sodium 136 mmol/L (136-145)
[2023-02-12 22:09] LABS: Albumin 4.8 g/dL (3.2-4.8); Aspartate Aminotransferase 11 U/L (13-40); Bilirubin, Total 0.3 mg/dL (0.2-1.0); Total Protein 7.4 g/dL (5.7-8.2)
[2023-02-13] MEDS ORDERED: HYDROcodone-ACET 10/325MG TAB PO ONE (01:00)
[2023-02-13] MEDS ORDERED: ONDANSETRON ODT 4 MG TAB PO ONE (01:00)
[2023-02-13 01:13] VITALS: PULSE 76; RESP 18; O2SAT 95
[2023-02-13 06:40] VITALS: BP 121/79; PULSE 92; RESP 20; TEMP 98.1; O2SAT 99
== END 2023-02-13 06:57 | disposition home or self-care (01) ==
LOC: ER 19:57
DX: R10.13 Epigastric pain (principal); R10.2 Pelvic and perineal pain; R73.9 Hyperglycemia, unspecified; J45.909 Unspecified asthma, uncomplicated; Z79.1 Long term (current) use of non-steroidal anti-inflammatories (NSAID); Z79.2 Long term (current) use of antibiotics; Z79.899 Other long term (current) drug therapy; Z88.8 Allergy status to other drugs, medicaments and biological substances; Z91.018 Allergy to other foods; Z91.013 Allergy to seafood; Z91.041 Radiographic dye allergy status
CPT/HCPCS: 36415; 74176; 80053; 81001; 83690; 84702; 85025; 99284; Q0162

== ENCOUNTER 2023-03-28 20:05 | Emergency (ER) | payer MEDICAID ==
[~2023-03-28] VITALS: Ht 160 cm; Wt 65.0 kg
[2023-03-28 22:01] LABS: Basophils # (auto) 0 10 ^3/uL (0-0.2); Eosinophils # (auto) 0.1 10 ^3/uL (0-0.8); Hemoglobin 10.7 g/dL (12.2-16.2); Lymphocytes # (auto) 1.3 10 ^3/uL (0.4-5.4)
[2023-03-28 22:03] LABS: Basophils % (auto) 0.3 % (0.0-2.0); Eosinophils % (auto) 1.7 % (0.0-7.0); Hematocrit 34.3 % (36.0-46.0); Lymphocytes % (auto) 17.8 % (10.0-50.0); Mean Corpuscular Hemoglobin 24.8 pg (28.0-32.0); Mean Corpuscular Hgb Conc. 31.3 g/dL (32.0-36.0); Mean Corpuscular Volume 79.1 fL (80.0-100.0); Monocytes # (auto) 0.5 10 ^3/uL (0-1.3); Monocytes % (auto) 6.4 % (0.0-12.0); Neutrophils # (auto) 5.2 10 ^3/uL (1.6-8.6); Neutrophils % (auto) 73.8 % (37.0-80.0); Red Blood Cells 4.33 10^6/uL (4.0-5.20); Red Cell Distribution Width 19.4 % (11.8-14.3); White Blood Cell 7.1 10^3/uL (4.4-10.8)
[2023-03-28 22:11] LABS: Albumin 4.4 g/dL (3.2-4.8); Alkaline Phosphatase 80 U/L (46-116); Anion Gap 13 (5-15); Aspartate Aminotransferase 8 U/L (13-40); BUN/Creatinine Ratio 8.5 (10.0-20.0); Bilirubin, Total 0.3 mg/dL (0.2-1.0); Blood Urea Nitrogen 6 mg/dL (9-23); Calcium 9.3 mg/dL (8.5-10.1); Carbon Dioxide 18 mmol/L (20-30); Chloride 108 mmol/L (98-107); Glucose 148 mg/dL (74-106); Potassium 3.2 mmol/L (3.5-5.1); Sodium 139 mmol/L (136-145); Total Protein 6.8 g/dL (5.7-8.2)
[2023-03-28 22:18] LABS: Alanine Aminotransferase < 9 U/L (7-40)
[2023-03-28 22:40] LABS: INR 1.07 (0.9-1.15); Partial Thromboplastin Time 29.9 SEC (24.5-34.5); Prothrombin Time 11.2 sec (9.3-11.8)
[2023-03-29 01:09] VITALS: BP 102/30; PULSE 70; RESP 14; TEMP 97.9; O2SAT 96
[2023-03-29 02:25] LABS: Urine Bacteria NONE SEEN /hpf (None Seen); Urine Blood Negative /uL (Negative); Urine Clarity HAZY (Clear); Urine Color Yellow (Yellow); Urine Mucus FEW (None Seen); Urine Protein, UAD Negative (Negative); Urine Specific Gravity 1.026 (1.001-1.035); Urine Urobilinogen Normal (Negative); Urine WBC 3 /hpf (0 - 5); Urine pH 5.5 (5.0-8.0)
== END 2023-03-29 02:06 | disposition home or self-care (01) ==
LOC: ER 20:05 → EDBD 20:05 → ER 03-29 02:06
DX: R56.9 Unspecified convulsions (principal); J45.909 Unspecified asthma, uncomplicated; Z88.6 Allergy status to analgesic agent; Z88.5 Allergy status to narcotic agent; Z91.013 Allergy to seafood; Z98.51 Tubal ligation status; Z79.899 Other long term (current) drug therapy; Z79.01 Long term (current) use of anticoagulants
CPT/HCPCS: 36415; 70450; 80053; 81001; 85025; 85610; 85730

== ENCOUNTER 2023-04-06 14:41 | Emergency (ER) | payer MEDICAID ==
[~2023-04-06] VITALS: Ht 157.5 cm; Wt 77.2 kg
[2023-04-06 14:51] VITALS: BP 133/73; RESP 18; O2SAT 98
[2023-04-06] MEDS ORDERED: levETIRAcetam 500 MG TAB PO ONE (15:30)
[2023-04-06 16:28] VITALS: PULSE 83
[2023-04-06 17:11] LABS: Basophils # (auto) 0 10 ^3/uL (0-0.2); Eosinophils # (auto) 0.1 10 ^3/uL (0-0.8); Lymphocytes # (auto) 1.5 10 ^3/uL (0.4-5.4); Mean Corpuscular Hemoglobin 24.7 pg (28.0-32.0); Monocytes # (auto) 0.4 10 ^3/uL (0-1.3); Neutrophils # (auto) 4.8 10 ^3/uL (1.6-8.6); Red Blood Cells 4.56 10^6/uL (4.0-5.20); Red Cell Distribution Width 19.9 % (11.8-14.3); White Blood Cell 6.8 10^3/uL (4.4-10.8)
[2023-04-06 17:14] LABS: Basophils % (auto) 0.6 % (0.0-2.0); Eosinophils % (auto) 0.8 % (0.0-7.0); Hematocrit 35.3 % (36.0-46.0); Hemoglobin 11.3 g/dL (12.2-16.2); Lymphocytes % (auto) 22.3 % (10.0-50.0); Mean Corpuscular Hgb Conc. 31.9 g/dL (32.0-36.0); Mean Corpuscular Volume 77.5 fL (80.0-100.0); Monocytes % (auto) 5.8 % (0.0-12.0); Neutrophils % (auto) 70.5 % (37.0-80.0)
[2023-04-06 17:29] LABS: INR 1.03 (0.9-1.15); Partial Thromboplastin Time 29.8 SEC (24.5-34.5); Prothrombin Time 10.8 sec (9.3-11.8)
[2023-04-06 17:32] LABS: Albumin 4.5 g/dL (3.2-4.8); Alkaline Phosphatase 74 U/L (46-116); Anion Gap 7 (5-15); Aspartate Aminotransferase < 8 U/L (13-40); BUN/Creatinine Ratio 15.3 (10.0-20.0); Bilirubin, Total 0.2 mg/dL (0.2-1.0); Blood Urea Nitrogen 9 mg/dL (9-23); Calcium 8.7 mg/dL (8.7-10.4); Carbon Dioxide 20 mmol/L (20-30); Chloride 111 mmol/L (98-107); Glucose 126 mg/dL (74-106); Potassium 3.7 mmol/L (3.5-5.1); Sodium 138 mmol/L (136-145)
[2023-04-06 17:33] LABS: Total Protein 6.9 g/dL (5.7-8.2)
[2023-04-06 17:50] LABS: Alanine Aminotransferase < 9 U/L (7-40)
[2023-04-06 17:52] LABS: Blood Alcohol < 3.0 mg/dL (<10)
[2023-04-06 22:11] LABS: Urine Amorphous Crystal FEW /hpf (None Seen); Urine Bacteria FEW /hpf (None Seen); Urine Blood Negative /uL (Negative); Urine Clarity CLOUDY (Clear); Urine Color Yellow (Yellow); Urine Mucus FEW (None Seen); Urine Protein, UAD Negative (Negative); Urine Urobilinogen Normal (Negative); Urine WBC 3 /hpf (0 - 5); Urine WBC Clumps PRESENT /hpf (None Seen)
[2023-04-06 22:25] LABS: Amphetamine Screen, Urine Neg (NEGATIVE); Barbiturate Scree,Urine Neg (NEGATIVE); Benzodiazephine Screen, Urine Neg (NEGATIVE); Cannabinoid Screen, Urine Neg (NEGATIVE); Cocaine Screen, Urine Neg (NEGATIVE); Opiate Scree,Urine Neg (NEGATIVE); Phencyclidine Screen, Urine Neg (NEGATIVE)
== END 2023-04-06 20:19 | disposition home or self-care (01) ==
LOC: ER 14:41
DX: G93.41 Metabolic encephalopathy (principal); F41.9 Anxiety disorder, unspecified; J45.909 Unspecified asthma, uncomplicated; F32.9 Major depressive disorder, single episode, unspecified; Z98.890 Other specified postprocedural states; Z88.8 Allergy status to other drugs, medicaments and biological substances; Z79.899 Other long term (current) drug therapy; Z86.2 Personal history of diseases of the blood and blood-forming organs and certain disorders involving the immune mechanism; Z91.013 Allergy to seafood
CPT/HCPCS: 36415; 80053; 80307; 80320; 81001; 84484; 85025; 85610; 85730; 93005

== ENCOUNTER 2023-04-16 10:37 | Emergency (ER) | payer MEDICAID ==
[~2023-04-16] VITALS: Ht 152.4 cm; Wt 80.2 kg
[2023-04-16] MEDS ORDERED: SODIUM CHLORIDE 0.9% 1,000 ML IV ONE (11:15)
[2023-04-16 11:52] LABS: Eosinophils # (auto) 0.1 10 ^3/uL (0-0.8); Lymphocytes # (auto) 1.3 10 ^3/uL (0.4-5.4); Monocytes # (auto) 0.5 10 ^3/uL (0-1.3); Neutrophils # (auto) 3.4 10 ^3/uL (1.6-8.6); Red Cell Distribution Width 19.5 % (11.8-14.3)
[2023-04-16 11:53] LABS: Basophils # (auto) 0.1 10 ^3/uL (0-0.2); Eosinophils % (auto) 1.9 % (0.0-7.0); Hematocrit 35.1 % (36.0-46.0); Hemoglobin 11.2 g/dL (12.2-16.2); Lymphocytes % (auto) 24.3 % (10.0-50.0); Mean Corpuscular Hemoglobin 24.8 pg (28.0-32.0); Mean Corpuscular Volume 77.5 fL (80.0-100.0); Monocytes % (auto) 9.4 % (0.0-12.0); Neutrophils % (auto) 63.4 % (37.0-80.0); Red Blood Cells 4.53 10^6/uL (4.0-5.20); White Blood Cell 5.4 10^3/uL (4.4-10.8)
[2023-04-16 11:55] LABS: Urine Bacteria FEW /hpf (None Seen); Urine Blood Negative /uL (Negative); Urine Clarity HAZY (Clear); Urine Color Yellow (Yellow); Urine Mucus FEW (None Seen); Urine Protein, UAD Negative (Negative); Urine Specific Gravity 1.019 (1.001-1.035); Urine Urobilinogen Normal (Negative); Urine WBC 5 /hpf (0 - 5); Urine WBC Clumps PRESENT /hpf (None Seen)
[2023-04-16 12:05] LABS: Albumin 4.6 g/dL (3.2-4.8); Alkaline Phosphatase 76 U/L (46-116); Anion Gap 7 (5-15); Aspartate Aminotransferase < 8 U/L (13-40); BUN/Creatinine Ratio 10.9 (10.0-20.0); Bilirubin, Total 0.3 mg/dL (0.2-1.0); Blood Urea Nitrogen 7 mg/dL (9-23); Calcium 8.9 mg/dL (8.7-10.4); Carbon Dioxide 20 mmol/L (20-30); Chloride 112 mmol/L (98-107); Glucose 134 mg/dL (74-106); Magnesium 1.9 mg/dL (1.6-2.6); Potassium 3.6 mmol/L (3.5-5.1); Sodium 139 mmol/L (136-145); Total Protein 7.1 g/dL (5.7-8.2)
[2023-04-16 12:06] LABS: COVID19 ANTIGEN SOFIA FIA NEGATIVE (NEGATIVE)
[2023-04-16 12:09] LABS: Alanine Aminotransferase < 9 U/L (7-40)
[2023-04-16] MEDS ORDERED: CIPR-173 PO (14:39)
[2023-04-16] MEDS ORDERED: ONDANSETRON HCL 4 MG/2 ML VIAL IV ONE (14:45)
[2023-04-16 16:33] VITALS: RESP 18
[2023-04-16 16:36] VITALS: BP 92/55; PULSE 72; RESP 18; TEMP 97.6; O2SAT 100
== END 2023-04-16 16:39 | disposition home or self-care (01) ==
LOC: ER 10:37
DX: R11.2 Nausea with vomiting, unspecified (principal); R10.2 Pelvic and perineal pain; R19.7 Diarrhea, unspecified; R30.0 Dysuria; J45.909 Unspecified asthma, uncomplicated; Z79.1 Long term (current) use of non-steroidal anti-inflammatories (NSAID); Z79.2 Long term (current) use of antibiotics; Z79.899 Other long term (current) drug therapy; Z88.8 Allergy status to other drugs, medicaments and biological substances; Z91.013 Allergy to seafood; Z91.018 Allergy to other foods; Z91.041 Radiographic dye allergy status; Z20.822 Contact with and (suspected) exposure to COVID-19
CPT/HCPCS: 36415; 80053; 81001; 83605; 83735; 84702; 85025; 85048; 87040; 87045; 87086; 87177; 87426; 87427; 87493; 93005; 96361; 96374; 99284; J2405; J7030

== ENCOUNTER 2023-10-11 15:38 | Emergency (ER) | payer MEDICAID ==
[~2023-10-11] VITALS: Ht 160 cm; Wt 82.0 kg
[2023-10-11 15:55] VITALS: RESP 18; O2SAT 97
[2023-10-11 16:45] LABS: Basophils # (auto) 0 10 ^3/uL (0-0.2); Basophils % (auto) 0.5 % (0.0-2.0); Eosinophils # (auto) 0.1 10 ^3/uL (0-0.8); Hematocrit 31.9 % (36.0-46.0); Hemoglobin 10.2 g/dL (12.2-16.2); Lymphocytes # (auto) 1.1 10 ^3/uL (0.4-5.4); Lymphocytes % (auto) 15.5 % (10.0-50.0); Mean Corpuscular Hemoglobin 24.3 pg (28.0-32.0); Mean Corpuscular Volume 75.9 fL (80.0-100.0); Monocytes # (auto) 0.4 10 ^3/uL (0-1.3); Monocytes % (auto) 5.6 % (0.0-12.0); Neutrophils # (auto) 5.5 10 ^3/uL (1.6-8.6); Neutrophils % (auto) 77.4 % (37.0-80.0); Red Cell Distribution Width 17.6 % (11.8-14.3); White Blood Cell 7.1 10^3/uL (4.4-10.8)
[2023-10-11] MEDS: SODIUM CHLORIDE 0.9% 1,000 ML IVB ONE (16:46)
[2023-10-11 17:05] LABS: Albumin 4.2 g/dL (3.2-4.8); Alkaline Phosphatase 60 U/L (46-116); Anion Gap 6 (5-15); Aspartate Aminotransferase < 8 U/L (13-40); BUN/Creatinine Ratio 14.8 (10.0-20.0); Bilirubin, Total 0.2 mg/dL (0.2-1.0); Blood Alcohol 3.5 mg/dL (<10); Blood Urea Nitrogen 9 mg/dL (9-23); Calcium 8.9 mg/dL (8.7-10.4); Carbon Dioxide 25 mmol/L (20-30); Chloride 107 mmol/L (98-107); Glucose 119 mg/dL (74-106); Magnesium 1.8 mg/dL (1.6-2.6); Potassium 4.1 mmol/L (3.5-5.1); Sodium 138 mmol/L (136-145); Total Protein 5.9 g/dL (5.7-8.2)
[2023-10-11 17:07] LABS: Alanine Aminotransferase < 9 U/L (7-40)
[2023-10-11] MEDS: LORazepam 2MG/ML-1ML VIAL IV ONE (18:05)
[2023-10-11] MEDS: HALOPERIDOL LACTATE 5 MG/ML INJ VIAL ONE (18:07)
[2023-10-11] MEDS: HALOPERIDOL LACTATE 5 MG/ML INJ VIAL IM ONE (18:07)
[2023-10-11 19:35] VITALS: O2SAT 98
[2023-10-11 19:44] VITALS: BP 109/60; PULSE 91; RESP 18; TEMP 97.6; O2SAT 98
== END 2023-10-11 20:03 | disposition home or self-care (01) ==
LOC: ER 15:38 → EDBD 15:38 → ER 20:00
DX: R41.82 Altered mental status, unspecified (principal); R10.2 Pelvic and perineal pain; F41.9 Anxiety disorder, unspecified; F32.9 Major depressive disorder, single episode, unspecified; J45.909 Unspecified asthma, uncomplicated; Z98.890 Other specified postprocedural states; Z79.899 Other long term (current) drug therapy
CPT/HCPCS: 36415; 70450; 80053; 80320; 82962; 83735; 84702; 85025; 96361; 96372; 96374; 99285; J1630; J2060; J7030

== ENCOUNTER 2023-10-12 17:18 | Emergency (ER) | payer MEDICAID ==
[~2023-10-12] VITALS: Ht 160 cm; Wt 82.0 kg
[2023-10-12 17:18] VITALS: RESP 16
== END 2023-10-12 18:36 ==
LOC: ER 17:18
DX: Z02.79 Encounter for issue of other medical certificate (principal); Z53.21 Procedure and treatment not carried out due to patient leaving prior to being seen by health care provider

== ENCOUNTER 2023-10-25 14:30 | Emergency (ER) | payer MEDICAID ==
[~2023-10-25] VITALS: Ht 167.6 cm; Wt 52.0 kg
[2023-10-25 16:00] VITALS: PULSE 97; RESP 14; O2SAT 97
[2023-10-25] MEDS: ONDANSETRON HCL 4 MG/2 ML VIAL IV ONE ×2 (17:31→23:07)
[2023-10-25] MEDS: ONDANSETRON HCL 4 MG/2 ML VIAL ONE (17:31)
[2023-10-25 17:58] LABS: Basophils # (auto) 0 10 ^3/uL (0-0.2); Eosinophils # (auto) 0 10 ^3/uL (0-0.8); Lymphocytes # (auto) 1.5 10 ^3/uL (0.4-5.4); Monocytes # (auto) 0.5 10 ^3/uL (0-1.3); White Blood Cell 10.1 10^3/uL (4.4-10.8)
[2023-10-25 18:00] LABS: Basophils % (auto) 0.5 % (0.0-2.0); Hematocrit 35.4 % (36.0-46.0); Hemoglobin 11.7 g/dL (12.2-16.2); Mean Corpuscular Volume 75.7 fL (80.0-100.0); Monocytes % (auto) 4.8 % (0.0-12.0); Neutrophils % (auto) 79.7 % (37.0-80.0); Red Blood Cells 4.67 10^6/uL (4.0-5.20); Red Cell Distribution Width 17.2 % (11.8-14.3)
[2023-10-25 18:11] LABS: Acetaminophen < 2.0 UG/ML (10.0-20.0)
[2023-10-25 18:15] LABS: Magnesium 2.2 mg/dL (1.6-2.6)
[2023-10-25 18:40] LABS: Salicylate < 3.0 mg/dL (2.8-20.0)
[2023-10-25] MEDS: SODIUM CHLORIDE 0.9% 1,000 ML IV ONE ×2 (19:00→22:42)
[2023-10-25 19:44] LABS: Amphetamine Screen, Urine Neg (NEGATIVE)
[2023-10-25 19:45] LABS: Barbiturate Scree,Urine Neg (NEGATIVE); Benzodiazephine Screen, Urine Neg (NEGATIVE); Cocaine Screen, Urine Neg (NEGATIVE); Opiate Scree,Urine Neg (NEGATIVE); Phencyclidine Screen, Urine Neg (NEGATIVE)
[2023-10-25 19:46] LABS: Cannabinoid Screen, Urine Neg (NEGATIVE)
[2023-10-25 20:00] VITALS: BP 110/59; PULSE 63; RESP 23; TEMP 98.2; O2SAT 98
[2023-10-25 20:05] LABS: Albumin 4.4 g/dL (3.2-4.8); Alkaline Phosphatase 62 U/L (46-116); Aspartate Aminotransferase < 8 U/L (13-40); BUN/Creatinine Ratio 10.9 (10.0-20.0); Blood Alcohol < 3.0 mg/dL (<10); Blood Urea Nitrogen 7 mg/dL (9-23); Chloride 113 mmol/L (98-107); Glucose 98 mg/dL (74-106); Potassium 3.6 mmol/L (3.5-5.1)
[2023-10-25 20:06] LABS: Bilirubin, Total 0.4 mg/dL (0.2-1.0); Total Protein 6.6 g/dL (5.7-8.2)
[2023-10-25] MEDS: SODIUM CHLORIDE 0.9% 500 ML IVB ONE (20:13)
[2023-10-25 20:14] LABS: Carbon Dioxide 14 mmol/L (20-30)
[2023-10-25 20:24] LABS: Alanine Aminotransferase < 9 U/L (7-40)
[2023-10-25 20:25] LABS: Anion Gap 16 (5-15); Sodium 143 mmol/L (136-145)
[2023-10-25 21:48] VITALS: PULSE 63
== END 2023-10-26 03:20 | disposition home or self-care (01) ==
LOC: EDBD 14:30 → ER 14:30
DX: T43.212A Poisoning by selective serotonin and norepinephrine reuptake inhibitors, intentional self-harm, initial encounter (principal); R10.2 Pelvic and perineal pain; F41.0 Panic disorder [episodic paroxysmal anxiety]; G40.909 Epilepsy, unspecified, not intractable, without status epilepticus; F32.9 Major depressive disorder, single episode, unspecified; J45.909 Unspecified asthma, uncomplicated; Z98.51 Tubal ligation status; Z79.899 Other long term (current) drug therapy; Y92.9 Unspecified place or not applicable
CPT/HCPCS: 36415; 80053; 80307; 80320; 80329; 83690; 83735; 84702; 85025; 96361; 96374; 96376; 99285; J2405; J7030

== ENCOUNTER 2023-12-03 09:38 | Emergency (ER) | payer MEDICAID ==
[~2023-12-03] VITALS: Ht 157.5 cm; Wt 64.8 kg
[2023-12-03 11:53] VITALS: BP 112/48; PULSE 68; RESP 18; TEMP 98; O2SAT 97
[2023-12-03] MEDS: KETOROLAC TROMETH 30 MG/ML 1ML VIAL IM ONE (12:00)
[2023-12-03] MEDS ORDERED: CYCL-837 PO (13:14)
[2023-12-03] MEDS ORDERED: IBUP-1454 PO (13:14)
== END 2023-12-03 13:35 | disposition home or self-care (01) ==
LOC: ER 09:38
DX: S60.221A Contusion of right hand, initial encounter (principal); M54.2 Cervicalgia; M25.511 Pain in right shoulder; M25.512 Pain in left shoulder; F41.9 Anxiety disorder, unspecified; J45.909 Unspecified asthma, uncomplicated; F32.9 Major depressive disorder, single episode, unspecified; Z98.890 Other specified postprocedural states; Z88.8 Allergy status to other drugs, medicaments and biological substances; Z91.013 Allergy to seafood; Z91.018 Allergy to other foods; Z79.899 Other long term (current) drug therapy; V89.2XXA Person injured in unspecified motor-vehicle accident, traffic, initial encounter; Y93.89 Activity, other specified; Y92.89 Other specified places as the place of occurrence of the external cause; Y99.8 Other external cause status
CPT/HCPCS: 73130; 96372; 99283; J1885

== ENCOUNTER 2023-12-24 15:07 | Inpatient (IN) | payer MEDICAID ==
[~2023-12-24] VITALS: Ht 157.5 cm; Wt 63.0 kg
[~2023-12-24 15:07] MED LIST changes: +CYCL-837 PO; +IBUP-1454 PO
[2023-12-24 17:10] LABS: Basophils # (auto) 0 10 ^3/uL (0-0.2); Basophils % (auto) 0.4 % (0.0-2.0); Eosinophils # (auto) 0 10 ^3/uL (0-0.8); Eosinophils % (auto) 0.2 % (0.0-7.0); Hemoglobin 13.2 g/dL (12.2-16.2); Lymphocytes # (auto) 1.2 10 ^3/uL (0.4-5.4); Lymphocytes % (auto) 15.4 % (10.0-50.0); Mean Corpuscular Hemoglobin 27.4 pg (28.0-32.0); Mean Corpuscular Hgb Conc. 32.9 g/dL (32.0-36.0); Mean Corpuscular Volume 83.4 fL (80.0-100.0); Monocytes # (auto) 0.5 10 ^3/uL (0-1.3); Monocytes % (auto) 6.2 % (0.0-12.0); Neutrophils % (auto) 77.8 % (37.0-80.0); Platelet Count (auto) 267 10^3/uL (140-450); Red Cell Distribution Width 17.9 % (11.8-14.3); White Blood Cell 7.7 10^3/uL (4.4-10.8)
[2023-12-24 17:30] LABS: Albumin 4.8 g/dL (3.2-4.8); Alkaline Phosphatase 71 U/L (46-116); Anion Gap 8 (5-15); Aspartate Aminotransferase < 8 U/L (13-40); BUN/Creatinine Ratio 10.9 (10.0-20.0); Blood Urea Nitrogen 7 mg/dL (9-23); Calcium 9.8 mg/dL (8.7-10.4); Carbon Dioxide 22 mmol/L (20-30); Chloride 110 mmol/L (98-107); Glucose 107 mg/dL (74-106); Lipase 38 U/L (12-53); Potassium 3.8 mmol/L (3.5-5.1); Sodium 140 mmol/L (136-145)
[2023-12-24 17:31] LABS: Bilirubin, Total 0.4 mg/dL (0.2-1.0); Total Protein 7.3 g/dL (5.7-8.2)
[2023-12-24 17:33] LABS: Alanine Aminotransferase < 9 U/L (7-40)
[2023-12-24 17:58] LABS: Urine Bacteria None Seen /hpf (None Seen)
[2023-12-24 18:25] LABS: Urine Blood Negative /uL (Negative); Urine Clarity Clear (Clear); Urine Color Light-Yellow (Yellow); Urine Mucus FEW (None Seen); Urine Protein, UAD 1+ (Negative); Urine Specific Gravity 1.022 (1.001-1.035); Urine Urobilinogen 2 mg/dL (Negative); Urine WBC 1 /hpf (0 - 5); Urine pH 8.5 (5.0-9.0)
[2023-12-24] MEDS: KETOROLAC TROMETH 30 MG/ML 1ML VIAL IM ONE (18:28)
[2023-12-24] MEDS: ONDANSETRON ODT 4 MG TAB PO ONE ×2 (19:18→23:57)
[2023-12-24] MEDS ORDERED: MORPHINE SULFATE INJ 2 MG/ml SYRG IV PRN (23:00)
[2023-12-24] MEDS: HYDROcodone-ACET 10/325MG TAB PO ONE (23:58)
[2023-12-25] VITALS (7 sets, daily range): BP systolic 98–142; BP diastolic 47–74; PULSE 60–82; RESP 14–20; TEMP 97.5–98.6; O2SAT 96–100
[2023-12-25] MEDS: LACTATED RINGER'S 1,000 ML IV ONE (01:06)
[2023-12-25] MEDS: LACTATED RINGER'S 1,000 ML IV SCH (01:30)
[2023-12-25] MEDS: PIPERACILLIN-TAZO 4.5GM 100 ML IV ONE (01:31)
[2023-12-25] MEDS: FAMOTIDINE (10MG/ML) 2ML VL IV ONE (01:57)
[2023-12-25] MEDS: KETOROLAC TROMETH 30 MG/ML 1ML VIAL IV ONE (02:00)
[2023-12-25] MEDS: KETOROLAC TROMETH 30 MG/ML 1ML VIAL IM ONE (02:53)
[2023-12-25 03:05] LABS: INR 1.07 (0.9-1.15); Prothrombin Time 11.3 sec (9.3-11.8)
[2023-12-25] MEDS ORDERED: BUSP15TA90 PO (05:29)
[2023-12-25] MEDS: PIPERACILLIN-TAZOB 3.375GM 100 ML IV SCH (08:00)
[2023-12-25] MEDS: MORPHINE SULFATE INJ 2 MG/ml SYRG IM ONE (08:37)
[2023-12-25 11:37] LABS: Basophils # (auto) 0 10 ^3/uL (0-0.2); Basophils % (auto) 0.7 % (0.0-2.0); Eosinophils # (auto) 0.2 10 ^3/uL (0-0.8); Eosinophils % (auto) 2.9 % (0.0-7.0); Hematocrit 33.1 % (36.0-46.0); Hemoglobin 11.1 g/dL (12.2-16.2); Lymphocytes # (auto) 1.1 10 ^3/uL (0.4-5.4); Lymphocytes % (auto) 21.4 % (10.0-50.0); Mean Corpuscular Hemoglobin 27.6 pg (28.0-32.0); Mean Corpuscular Hgb Conc. 33.6 g/dL (32.0-36.0); Mean Corpuscular Volume 82.2 fL (80.0-100.0); Monocytes # (auto) 0.5 10 ^3/uL (0-1.3); Monocytes % (auto) 8.6 % (0.0-12.0); Neutrophils # (auto) 3.5 10 ^3/uL (1.6-8.6); Neutrophils % (auto) 66.4 % (37.0-80.0); Nucleated Red Blood Cells % 0.1 %; Platelet Count (auto) 189 10^3/uL (140-450); Red Blood Cells 4.02 10^6/uL (4.0-5.20); Red Cell Distribution Width 17.2 % (11.8-14.3); White Blood Cell 5.3 10^3/uL (4.4-10.8)
[2023-12-25 11:50] LABS: Alkaline Phosphatase 62 U/L (46-116); Anion Gap 7 (5-15); BUN/Creatinine Ratio 14.1 (10.0-20.0); Blood Urea Nitrogen 9 mg/dL (9-23); Calcium 8.9 mg/dL (8.7-10.4); Carbon Dioxide 25 mmol/L (20-30); Chloride 107 mmol/L (98-107); Glucose 98 mg/dL (74-106); Potassium 3.5 mmol/L (3.5-5.1); Sodium 139 mmol/L (136-145)
[2023-12-25 11:51] LABS: Albumin 4.1 g/dL (3.2-4.8); Aspartate Aminotransferase < 8 U/L (13-40); Bilirubin, Total 0.5 mg/dL (0.2-1.0); Total Protein 6.1 g/dL (5.7-8.2)
[2023-12-25 12:02] LABS: Alanine Aminotransferase < 9 U/L (7-40)
[2023-12-25] MEDS: CEFEPIME 1GM/ 50ML 50 ML IV ONE ×2 (12:16→17:42)
[2023-12-25] MEDS: ONDANSETRON HCL 4 MG/2 ML VIAL IV ONE (12:16)
[2023-12-25] MEDS: MORPHINE SULFATE INJ 2 MG/ml SYRG IV ONE (12:27)
[2023-12-25] MEDS: ONDANSETRON HCL 4 MG/2 ML VIAL IV PRN (17:13)
[2023-12-25] MEDS: CEFEPIME 1GM/ 50ML 50 ML IV SCH (20:09)
[2023-12-25] MEDS: MORPHINE SULFATE INJ 2 MG/ml SYRG IV PRN (20:14)
[2023-12-26] VITALS (8 sets, daily range): BP systolic 97–107; BP diastolic 49–68; PULSE 76–93; RESP 18–20; TEMP 98.3–98.5; O2SAT 95–100
[2023-12-26] MEDS ORDERED: BUPIVACAINE HCL 50 ML ONE (07:07)
[2023-12-26] MEDS ORDERED: LIDOCAINE W/ EPINEPHRINE 1% 20ML VIAL ONE (07:07)
[2023-12-26] MEDS ORDERED: levoFLOXacin 500MG 100 ML IV ONE (07:13)
[2023-12-26] MEDS ORDERED: SUCCINYLCHOLINE CHLORIDE 20 MG/ML 10ML VIAL IV ONE (07:31)
[2023-12-26] MEDS ORDERED: fentaNYL CITRATE 100 MCG/2 ML VL ONE (07:52)
[2023-12-26] MEDS ORDERED: MIDAZOLAM HCL 2MG/2ML 2ml VIAL (1mg/ml) ONE (07:52)
[2023-12-26] MEDS ORDERED: MEPERIDINE HCL (50 MG/ML) 1 ML VIAL ONE (07:52)
[2023-12-26] MEDS ORDERED: LIDOCAINE 2% JELLY 11ml (GLYDO) ONE (07:55)
[2023-12-26] MEDS ORDERED: DexAMETHasone SOD PHOS 10MG/1ML VIAL INJ ONE (08:36)
[2023-12-26] MEDS ORDERED: PROPOFOL 10 MG/ML 20 ML IV ONE (08:36)
[2023-12-26] MEDS ORDERED: SUGAMMADEX 200mg/2ml Vial (100MG/ML) IV ONE (08:48)
[2023-12-26] MEDS: LIDOCAINE 1%-Mpf/Epinephrine 1:200,000 30ml VIAL IJ ONE (09:00)
[2023-12-26] MEDS ORDERED: ROCURONIUM 10MG/ML 10ML VIAL IV ONE (09:02)
[2023-12-26] MEDS ORDERED: ONDANSETRON HCL 4 MG/2 ML VIAL IV ONE (09:45)
[2023-12-26] MEDS ORDERED: ePHEDrine SULFATE 50 MG/ML AMP IV PRN (09:45)
[2023-12-26] MEDS ORDERED: HYDROmorphone HCL 2 MG/ML VL/or syr IV PRN (09:45)
[2023-12-26] MEDS ORDERED: hydrALAZINE HCL 20 MG/ML VL IV PRN (09:45)
[2023-12-26] MEDS ORDERED: MIDAZOLAM HCL 2MG/2ML 2ml VIAL (1mg/ml) IV PRN (09:45)
[2023-12-26] MEDS: MORPHINE SULFATE 4 MG/ML SYR/VIAL IV PRN (09:54)
[2023-12-26] MEDS: levoFLOXacin 500MG 100 ML IV SCH (10:00)
[2023-12-26] MEDS: KETOROLAC TROMETH 30 MG/ML 1ML VIAL IV ONE (10:14)
[2023-12-26] MEDS: D5W/SOD CHL 0.45%/KCL 20MEQ 1,000 ML IV SCH (11:13)
[2023-12-26] MEDS ORDERED: LORazepam 2MG/ML-1ML VIAL IV PRN (13:30)
[2023-12-26 14:23] LABS: Basophils # (auto) 0 10 ^3/uL (0-0.2); Basophils % (auto) 0.1 % (0.0-2.0); Eosinophils # (auto) 0 10 ^3/uL (0-0.8); Eosinophils % (auto) 0.1 % (0.0-7.0); Hematocrit 33.2 % (36.0-46.0); Hemoglobin 10.9 g/dL (12.2-16.2); Lymphocytes # (auto) 0.4 10 ^3/uL (0.4-5.4); Lymphocytes % (auto) 4.2 % (10.0-50.0); Mean Corpuscular Hemoglobin 27.8 pg (28.0-32.0); Mean Corpuscular Hgb Conc. 32.8 g/dL (32.0-36.0); Mean Corpuscular Volume 84.7 fL (80.0-100.0); Monocytes # (auto) 0.1 10 ^3/uL (0-1.3); Neutrophils # (auto) 8.8 10 ^3/uL (1.6-8.6); Neutrophils % (auto) 94.6 % (37.0-80.0); Platelet Count (auto) 188 10^3/uL (140-450); Red Blood Cells 3.93 10^6/uL (4.0-5.20); White Blood Cell 9.3 10^3/uL (4.4-10.8)
[2023-12-26] MEDS ORDERED: PHENYLEPHRINE HCL 10 MG/ML VL IV ONE (14:34)
[2023-12-26 14:42] LABS: Albumin 3.7 g/dL (3.2-4.8); Alkaline Phosphatase 55 U/L (46-116); Anion Gap 8 (5-15); Aspartate Aminotransferase < 8 U/L (13-40); Calcium 8.4 mg/dL (8.7-10.4); Carbon Dioxide 22 mmol/L (20-31); Chloride 107 mmol/L (98-107); Glucose 167 mg/dL (74-106); Sodium 137 mmol/L (136-145)
[2023-12-26 14:43] LABS: Bilirubin, Total 0.4 mg/dL (0.2-1.0); Total Protein 5.6 g/dL (5.7-8.2)
[2023-12-26 14:46] LABS: Alanine Aminotransferase < 9 U/L (7-40); BUN/Creatinine Ratio 8.2 (10.0-20.0); Blood Urea Nitrogen < 5 mg/dL (9-23)
[2023-12-26] MEDS: metroNIDAZOLE 500MG/100ML 100 ML IV SCH (16:43)
[2023-12-26] MEDS: VALPROATE INJ 250 MG in SODIUM CHL 0.9% 50 ML IV ONE (16:55)
[2023-12-26] MEDS: VALPROATE INJ 250 MG in SODIUM CHL 0.9% 50 ML IV SCH (23:16)
[2023-12-27] VITALS (10 sets, daily range): BP systolic 97–103; BP diastolic 52–63; PULSE 77–106; RESP 17–18; TEMP 97.8–98.4; O2SAT 96–100
[2023-12-27 09:46] LABS: Basophils # (auto) 0 10 ^3/uL (0-0.2); Basophils % (auto) 0.1 % (0.0-2.0); Eosinophils # (auto) 0 10 ^3/uL (0-0.8); Eosinophils % (auto) 0.2 % (0.0-7.0); Hematocrit 29.1 % (36.0-46.0); Hemoglobin 9.7 g/dL (12.2-16.2); Lymphocytes # (auto) 1.1 10 ^3/uL (0.4-5.4); Lymphocytes % (auto) 15.9 % (10.0-50.0); Mean Corpuscular Hemoglobin 27.1 pg (28.0-32.0); Mean Corpuscular Hgb Conc. 33.4 g/dL (32.0-36.0); Mean Corpuscular Volume 81.1 fL (80.0-100.0); Monocytes # (auto) 0.6 10 ^3/uL (0-1.3); Neutrophils # (auto) 5.4 10 ^3/uL (1.6-8.6); Neutrophils % (auto) 75.8 % (37.0-80.0); Nucleated Red Blood Cells % 0.1 %; Platelet Count (auto) 199 10^3/uL (140-450); Red Blood Cells 3.59 10^6/uL (4.0-5.20); Red Cell Distribution Width 17.2 % (11.8-14.3); White Blood Cell 7.1 10^3/uL (4.4-10.8)
[2023-12-27 09:50] LABS: Anion Gap 5 (5-15); Calcium 8.6 mg/dL (8.7-10.4); Carbon Dioxide 27 mmol/L (20-31); Chloride 108 mmol/L (98-107); Potassium 3.9 mmol/L (3.5-5.1); Sodium 140 mmol/L (136-145)
[2023-12-27 09:56] LABS: Glucose 131 mg/dL (74-106)
[2023-12-27 10:00] LABS: BUN/Creatinine Ratio 8.9 (10.0-20.0); Blood Urea Nitrogen < 5 mg/dL (9-23)
[2023-12-27] MEDS: ALBUTEROL SULF 2.5 MG/0.5ML(0.5%) NEB SOLN NEB ONE (16:30)
[2023-12-27] MEDS: IPRATROPIUM BROM 0.5 MG/2.5ML INH SOL NEB ONE (16:30)
[2023-12-27] MEDS ORDERED: LORazepam 2MG/ML-1ML VIAL IV PRN (21:45)
[2023-12-28] VITALS (8 sets, daily range): BP systolic 101–107; BP diastolic 47–54; PULSE 70–94; RESP 17–20; TEMP 97.5–98.3; O2SAT 96–100
[2023-12-28] MEDS: KETOROLAC TROMETH 30 MG/ML 1ML VIAL IV ONE (02:17)
[2023-12-28] MEDS: busPIRone HCL 10 MG TAB PO ONE (11:14)
[2023-12-28 14:45] LABS: Chloride 104 mmol/L (98-107); Potassium 3.7 mmol/L (3.5-5.1); Sodium 138 mmol/L (136-145)
[2023-12-28] MEDS ORDERED: IPRATROPIUM BROM 0.5 MG/2.5ML INH SOL NEB PRN (14:45)
[2023-12-28] MEDS ORDERED: ALBUTEROL SULF 2.5 MG/0.5ML(0.5%) NEB SOLN NEB PRN (14:45)
[2023-12-28 14:46] LABS: Anion Gap 9 (5-15); Carbon Dioxide 25 mmol/L (20-31)
[2023-12-28 14:47] LABS: Calcium 9.6 mg/dL (8.7-10.4)
[2023-12-28 14:51] LABS: BUN/Creatinine Ratio 7.8 (10.0-20.0); Blood Urea Nitrogen < 5 mg/dL (9-23); Glucose 122 mg/dL (74-106)
[2023-12-28] MEDS ORDERED: ENOXAPARIN SOD 40 MG/0.4 ML SYRINGE SC ONE (15:45)
[2023-12-28] MEDS ORDERED: ENOXAPARIN SOD 40 MG/0.4 ML SYRINGE SC SCH (16:08)
[2023-12-28] MEDS: busPIRone HCL 10 MG TAB PO SCH (22:05)
[2023-12-29] MEDS ORDERED: ONDANSETRON ODT 4 MG TAB PO PRN (00:15)
[2023-12-29] MEDS ORDERED: HYDROcodone-ACET 5/325MG TAB PO PRN (00:15)
[2023-12-29] MEDS ORDERED: MORPHINE SULFATE INJ 2 MG/ml SYRG IV PRN (00:45)
[2023-12-29 08:00] VITALS: RESP 18
[2023-12-29 09:27] VITALS: BP 89/27; PULSE 81; RESP 18; TEMP 98.5; O2SAT 97
[2023-12-29 10:29] VITALS: O2SAT 95
[2023-12-29] MEDS ORDERED: LEVO500T91 PO (12:11)
[2023-12-29 13:00] VITALS: BP 91/40; PULSE 90; RESP 16; TEMP 98.7; O2SAT 99
[2023-12-29 13:36] VITALS: PULSE 90; RESP 16; TEMP 37.1; O2SAT 99
[2023-12-30] MEDS ORDERED: HYDR-3682 PO (12:23)
[2023-12-30] MEDS ORDERED: CALA1SUS2 EX (12:23)
[2023-12-30] MEDS ORDERED: METH4PAK PO (12:23)
== END 2023-12-29 14:35 | disposition home or self-care (01) | DRG 234 ==
LOC: EDBD 15:07 → ER 15:07 → OVERFLOW 23:11 → WEST WING 12-25 04:40 → TELE-WESTW 12-26 15:19 → WEST WING 12-28 18:26
PROVIDERS: ADMIT Internal Medicine; ATTEND Surgery
PROC: 0DTJ4ZZ Resection of Appendix, Percutaneous Endoscopic Approach (ICD-10-PCS; principal; 2023-12-26 08:01)
DX: K35.80 Unspecified acute appendicitis (principal); E80.21 Acute intermittent (hepatic) porphyria; G40.409 Other generalized epilepsy and epileptic syndromes, not intractable, without status epilepticus; E11.9 Type 2 diabetes mellitus without complications; R00.0 Tachycardia, unspecified; F32.A Depression, unspecified; F41.9 Anxiety disorder, unspecified; I10 Essential (primary) hypertension; J45.909 Unspecified asthma, uncomplicated; Z88.8 Allergy status to other drugs, medicaments and biological substances; Z88.1 Allergy status to other antibiotic agents; Z91.041 Radiographic dye allergy status; Z91.013 Allergy to seafood; Z79.899 Other long term (current) drug therapy; Z86.718 Personal history of other venous thrombosis and embolism; Z79.01 Long term (current) use of anticoagulants; Z86.711 Personal history of pulmonary embolism; Z83.3 Family history of diabetes mellitus; Z82.3 Family history of stroke; Z82.0 Family history of epilepsy and other diseases of the nervous system; Z82.49 Family history of ischemic heart disease and other diseases of the circulatory system; Z86.73 Personal history of transient ischemic attack (TIA), and cerebral infarction without residual deficits; Z87.891 Personal history of nicotine dependence
CPT/HCPCS: 36415; 70450; 73030; 74176; 76700; 76705; 80048; 80053; 81001; 82962; 83605; 83690; 84443; 84702; 85025; 85610; 86850; 86900; 86901; 94640; 96372; 97163; G0378; J0330; J1100; J1885; J1956; J2250; J2405; J2543; J2704; J3490; Q0162

== ENCOUNTER 2023-12-30 10:28 | Emergency (ER) | payer MEDICAID ==
[~2023-12-30] VITALS: Ht 157.5 cm; Wt 61.7 kg
[~2023-12-30 10:28] MED LIST changes: +BUSP15TA90 PO; -CIPR-173 PO; -CYCL-837 PO; -DIVA125C8; -ESCI10TA PO; -IBU600T PO; -IBUP-1454 PO; +LEVO500T91 PO; -OXCA150T3 PO; -ZOFR4T PO
[2023-12-30 11:34] VITALS: BP 109/65; PULSE 90; RESP 16; TEMP 98; O2SAT 99
[2023-12-30] MEDS ORDERED: HYDR-3682 PO (12:23)
[2023-12-30] MEDS ORDERED: METH4PAK PO (12:23)
[2023-12-30] MEDS ORDERED: CALA1SUS2 EX (12:23)
== END 2023-12-30 12:23 | disposition home or self-care (01) ==
LOC: ER 10:28
DX: L24.9 Irritant contact dermatitis, unspecified cause (principal); J45.909 Unspecified asthma, uncomplicated; F41.9 Anxiety disorder, unspecified; Z87.440 Personal history of urinary (tract) infections; Z88.0 Allergy status to penicillin; Z88.8 Allergy status to other drugs, medicaments and biological substances; Z98.51 Tubal ligation status

== ENCOUNTER 2024-02-03 08:16 | Emergency (ER) | payer MEDICAID ==
[~2024-02-03] VITALS: Ht 157.5 cm; Wt 61.3 kg
[~2024-02-03 08:16] MED LIST changes: +CALA1SUS2 EX; +HYDR-3682 PO; +METH4PAK PO
[2024-02-03 09:12] VITALS: BP 109/91; PULSE 80; RESP 17; TEMP 97.9; O2SAT 100
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
--- NOTE | 2024-02-03 19:34 | ECG ---
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
== END 2024-02-03 10:34 | disposition home or self-care (01) ==
LOC: ER 08:16
DX: T23.001A Burn of unspecified degree of right hand, unspecified site, initial encounter (principal); T31.0 Burns involving less than 10% of body surface; R20.2 Paresthesia of skin; J45.909 Unspecified asthma, uncomplicated; F41.9 Anxiety disorder, unspecified; F32.9 Major depressive disorder, single episode, unspecified; Z98.890 Other specified postprocedural states; Z88.8 Allergy status to other drugs, medicaments and biological substances; Z91.013 Allergy to seafood; Z91.018 Allergy to other foods; Z79.899 Other long term (current) drug therapy; W86.8XXA Exposure to other electric current, initial encounter; Y93.89 Activity, other specified; Y92.89 Other specified places as the place of occurrence of the external cause; Y99.8 Other external cause status
CPT/HCPCS: 93005

== ENCOUNTER 2024-03-05 16:51 | Emergency (ER) | payer MEDICAID ==
[~2024-03-05] VITALS: Ht 157.5 cm; Wt 61.7 kg
--- NOTE | 2024-03-05 17:40 | ED.PDOC ---
GI ASSESSMENT HPI Comments 29 y.o female with PMH of acute intermittent porphyria, UTI's, PE, asthma, presents to the ED for a chief complaint of LLQ pain, nausea, vomiting x 3 days associated with constipation x 2 days. Patient reports pain is constant, with some pain localized to the RLQ but worse on LLQ. Patient states this pain is different from previous pains. She denies any urinary symptoms, fever, chills, history of ovarian cysts or diverticulitis. Vital signs were stable on arrival. Chief Complaint: Abdominal Pain Time Seen by MD: 17:34 Primary Care Provider: UNKNOWN Reviewed Notes: Nurses Notes, Medications, Allergies Allergies: Coded Allergies: Piperacillin (Verified Allergy, Intermediate, PRURITIS, 12/25/23) PATIENT C/O ITCHINESS 15 MIN AFTER MEDICATION STARTED VIA IV Tazobactam (Verified Allergy, Intermediate, PRURITIS, 12/25/23) PATIENT C/O ITCHINESS 15 MIN AFTER MEDICATION STARTED VIA IV Diphenhydramine (Verified Allergy, Unknown, 01/01/23) Heparin (Verified Allergy, Unknown, 01/01/23) Levetiracetam (Verified Allergy, Unknown, 01/01/23) Pineapple (Verified Allergy, Unknown, 01/01/23) Shellfish Allergy (Verified Allergy, Unknown, 01/01/23) Uncoded Allergies: CONTRAST DYE (Allergy, Severe, 02/21/22) Home Meds Active Scripts Calamine-Zinc Oxide (Calamine 8-8 %) 1 Karina Karina, 1 APPLIC EX QID for 10 Days, #1 KIT 0 Refills Prov:BELEM ERICKSON NP 12/30/23 Hydroxyzine Hcl (Hydroxyzine Hcl) 25 Mg Tab, 1 TAB PO TIDPRN PRN for 10 Days, #30 TAB 0 Refills Prov:BELEM ERICKSON NP 12/30/23 Methylprednisolone (Medrol Dosepak) 4 Mg John, 4 MG PO UD, #21 TAB 0 Refills UAD Prov:BELEM REICKSON NP 12/30/23 Levofloxacin Hemihydrate (LEVOFLOXACIN) 500 Mg Tab, 1 TAB PO DAILY for 7 Days, #7 TAB Prov:GLEN JARAMILLO DO 12/29/23 Reported Medications Buspirone HCl (Buspirone Hydrochloride) 15 Mg Tab, 1 TAB PO BID 12/25/23 Information Source: Patient Mode of Arrival: Ambulatory Timing: Days (3) Duration: Since onset Quality: Sharp Vomitus: Hard Stool: Empty Severity: Moderate Recent: None Recent Hx of: Other (acute intermittent porphyria ) Pain Location: LLQ Modifying Factors: Nothing Associated sign and symptoms: Nausea, Vomiting, Constipation, Abdominal Pain Past Medical History PAST MEDICAL HISTORY: Anxiety, Asthma, Depression, PE, UTI'S Past Medical History (Other): acute intermittent porphyria Surgical History: 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, 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 Family History Family History: Reviewed,noncontributory to illness, Family hx of DM, Family hx of Cancer, Family hx of heart nirmal Social History Smoker: Non-Smoker Alcohol: Denies ETOH Use Drugs: Denies Drug Use Lives In: Home Constitutional: denies: chills, diaphoresis, fatigue, fever, malaise, sweats, weakness, others EENTM: denies: blurred vision, double vision, ear bleeding, ear discharge, ear drainage, ear pain, ear ringing, eye pain, eye redness, hearing loss, mouth pain, mouth swelling, nasal discharge, nose bleeding, nose congestion, nose pain, photophobia, tearing, throat pain, throat swelling, voice changes, others Respiratory: denies: cough, hemoptysis, orthopnea, SOB at rest, shortness of breath, SOB with excertion, stridor, wheezing, others Cardiovascular: denies: chest pain, dizzy spells, diaphoresis, Dyspnea on exertion, edema, irregular heart beat, left arm pain, lightheadedness, palpitations, PND, syncope, others Gastrointestinal: reports: abdominal pain, constipated, nausea, vomiting; denies: abdomen distended, blood streaked bowels, diarrhea, dysphagia, difficulty swallowing, hematemesis, melena, poor appetite, poor fluid intake, rectal bleeding, rectal pain, others Genitourinary: denies: abnormal vagina bleeding, burning, dyspareunia, dysuria, flank pain, frequency, hematuria, incontinence, pain, , vagina discharge, urgency, others Neurological: denies: dizziness, fainting, headache, left sided numbness, left sided weakness, numbness, paresthesia, pre-existing deficit, right sided numbnes s, right sided weakness, seizure, speech problems, tingling, tremors, weakness, others Musculoskeletal: denies: back pain, gout, joint pain, joint swelling, muscle pain, muscle stiffness, neck pain, others Integumetry: denies: bruises, change in color, change in hair/nails, dryness, laceration, lesions, lumps, rash, wounds, others Allergic/Immunocompromised: denies: Difficulty Healing, Frequent Infections, Hives, Itching, others Hematologic/Lymphatic: denies: anemia, blood clots, easy bleeding, easy bruising, swollen glands, others Endocrine: denies: excessive hunger, excessive sweating, excessive thirst, excessive urination, flushing, intolerance to cold, intolerance to heat, unexplained weight gain, unexplained weight loss, others Psychiatric: denies: anxiety, bipolar disorder, depression, hopeless, panic disorder, schizophrenia, sleepless, suicidal, others All Other Systems: Reviewed and Negative Physical Exam General Appearance: Moderate Distress (Patient appears to be in [id number] distress due to left-sided abdominal pain), Normal HEENT: Normal ENT Inspection, Pharynx Normal, TMs Normal Neck: Full Range of Motion, Non-Tender, Normal, Normal Inspection Respiratory: Chest Non-Tender, Lungs Clear, No Accessory Muscle Use, No Respiratory Distress, Normal Breath Sounds Cardiovascular: No Edema, No JVD, No Murmur, No Gallop, Normal Peripheral Pulses, Regular Rate/Rhythm Breast Exam: Deferred Gastrointestinal: Other (Diffuse left-sided abdominal pain extending towards the left upper quadrant as well. Renal signs of trauma. No pulsatile masses. Abdomen was mildly rigid.) Genitalia: Deferred Pelvic: Deferred Rectal: Deferred Extremities: No calf tenderness, Normal capillary refill, Normal inspection, Normal range of motion, Non-tender, No pedal edema Neurologic: Alert, choke setter II-XII nml as Tested, No Motor Deficits, Normal Affect, Normal Mood, No Sensory Deficits Cerebellar Function: Normal Reflexes: Normal Skin: Dry, Normal Color, Warm Lymphatic: No Adenopathy Was a procedure done? Was a procedure done?: No GI differential Dx Differential Diagnosis: Diverticular disease, Gastroenteritis, Inflammatory BD, Porphyria, UTI, Food Poisoning, Malnutrition, Other (Abdominal pain) X-Ray, Labs, Meds, VS Vital Signs Date Time Temp Pulse Resp B/P (MAP) Pulse Ox O2 Delivery O2 Flow Rate FiO2 12/5/24 18:40 81 17 100 Room Air* 0 21 03/05/24 18:40 98.2 81 17 125/86 (99) 100 98.2 03/05/24 17:07 98.3 88 16 111/69 (83) 99 Lab Test 03/05/24 17:52 03/05/24 17:44 Range/Units White Blood Count 8.1 4.4-10.8 10^3/uL Red Blood Count 4.88 4.0-5.20 10^6/uL Hemoglobin 13.7 12.2-16.2 g/dL Hematocrit 41.5 36.0-46.0 % Mean Corpuscular Volume 84.9 80.0-100.0 fL Mean Corpuscular Hemoglobin 28.1 28.0-32.0 pg Mean Corpuscular Hemoglobin Concent 33.1 32.0-36.0 g/dL Red Cell Distribution Width 13.5 11.8-14.3 % Platelet Count 272 140-450 10^3/uL Mean Platelet Volume 8.0 6.9-10.8 fL Neutrophils (%) (Auto) 70.2 37.0-80.0 % Lymphocytes (%) (Auto) 22.5 10.0-50.0 % Monocytes (%) (Auto) 5.9 0.0-12.0 % Eosinophils (%) (Auto) 0.7 0.0-7.0 % Basophils (%) (Auto) 0.7 0.0-2.0 % Neutrophils # (Auto) 5.6 1.6-8.6 10 ^3/uL Lymphocytes # (Auto) 1.8 0.4-5.4 10 ^3/uL Monocytes # (Auto) 0.5 0-1.3 10 ^3/uL Eosinophils # (Auto) 0.1 0-0.8 10 ^3/uL Basophils # (Auto) 0.1 0-0.2 10 ^3/uL Nucleated Red Blood Cells 0.1 % Sodium Level 140 136-145 mmol/L Potassium Level 3.5 3.5-5.1 mmol/L Chloride Level 107 98-107 mmol/L Carbon Dioxide Level 21 20-31 mmol/L Anion Gap 12 5-15 Blood Urea Nitrogen 10 9-23 mg/dL Creatinine 0.62 0.550-1.02 mg/dL Glomerular Filtration Rate Calc 123 >90 mL/min BUN/Creatinine Ratio 16.1 10.0-20.0 Serum Glucose 86 74-106 mg/dL Calcium Level 9.8 8.7-10.4 mg/dL Lipase 39 12-53 U/L Urine Color Light-yellow Yellow Urine Clarity Clear Clear Urine pH 7.5 5.0-9.0 Urine Specific [place] 1.026 1.001-1.035 Urine Protein Trace H Negative Urine Ketones Negative Negative Urine Blood Negative Negative /uL Urine Nitrite Negative Negative Urine Bilirubin Negative Negative Urine Urobilinogen Normal Negative mg/dL Urine Leukocyte Esterase Negative Negative /uL Urine RBC 3 0 - 4 /hpf Urine WBC None seen 0 - 5 /hpf Urine Squamous Epithelial Cells Few <5 /hpf Urine Bacteria None seen None Seen /hpf Urine Mucus Few None Seen Urine Glucose Normal Normal mg/dL Exam: CT CT AB PEL WO CON-NO ORAL OR IV History: Left-sided abdominal pain Comparison Study: CT CT AB PEL WO CON-NO ORAL OR IV on DOS: 12/24/23, CT CT AB PEL WO CON-NO ORAL OR IV on DOS: 02/12/23, CT CT AB PEL WO CON-NO ORAL OR IV on DOS: 09/27/22 Technique: Multidetector spiral CT of the abdomen and pelvis was performed from lung bases to pubic symphysis. Imaging was performed without IV contrast. Axial, coronal and sagittal multiplanar reformats were obtained from the axial data set by the technologist. Radiation dose : Abdomen/Pelvis: CTDIvol 6 mGy, DLP 297.74 mGy*cm. Findings: Evaluation of solid organs is limited due to lack of intravenous contrast use. Lung Bases: No acute or significant lung base finding. Normal heart size. No pleural or pericardial effusion. Liver: The liver is normal in size. No focal lesions. Gallbladder and biliary Tree: Unremarkable Spleen: Unremarkable Pancreas: The pancreas is grossly normal in appearance. Adrenal Glands: Unremarkable Kidneys: Kidneys are grossly normal without calculi or hydronephrosis. Bladder: Grossly unremarkable for degree of distention. Bowel: The stomach is grossly normal in appearance. Small bowel and colon are normal in caliber and distribution. There is radiodense material in a normal- appearing appendix. Ascites: Trace free fluid in the pelvis. Lymphadenopathy: No mesenteric, retroperitoneal or periportal lymphadenopathy. Abdominal wall and Mesentery: Unremarkable. Vasculature: The visualized abdominal aorta is normal in size and caliber. Evaluation of abdominal and pelvic vessels is limited due to lack of intravenous contrast. Pelvic Organs: Unremarkable Musculoskeletal: No aggressive focal bony lesions, acute fractures or dislocation. IMPRESSION: 1. No acute abdominal or pelvic findings. Trace free fluid in the pelvis is likely physiologic. Radiation optimization: All CT scans at this facility use at least one of these dose optimization techniques: Automated exposure control mA and/or kV adjustment per patient size (includes targeted exams where dose is matched to clinical indication) or iterative reconstruction. HS:Y X-Ray, Labs, Meds, VS Comment Fall studies performed the ED today were evaluated by me personally. Serum laboratories and urine were unremarkable for any acute process. CT of the abdomen and pelvis was unremarkable for any left lower quadrant concerns. No diverticular disease noted. No colitis. No constipation or stool burden. Patient appears to be suffering from an unknown abdominal pain concerns that may be related to an autoimmune issue. Patient needs to continue follow up with the primary care provider for long-term evaluation and management. Time of 1ST Reevaluation: 19:18 Reevaluation 1ST: Improved Consultation: PCP, GI Patient Education/Counseling: Diagnosis, Treatment, Prognosis Family Education/Counseling: Diagnosis, Treatment, No Family Present Departure 1 Departure Time of Disposition: 19:19 Impression: Primary Impression: Abdominal pain Disposition: 01 HOME / SELF CARE / HOMELESS Condition: Stable Additional Instructions: Advised patient utilize medication as needed additionally, patient will have to follow up with the primary care provider or inventory clerk for continued evaluation and management of her long-term abdominal pain concerns. e-Prescriptions Dicyclomine Hcl (BENTYL CAPSULE) 10 Mg Cp 1 CAP PO Q6HPRN, #20 CAP 0 Refills Prov: RIMA TAN PAC 03/05/24 Ondansetron Odt 4MG Tab (ZOFRAN PO) 4 Mg Tb 4 MG PO Q6HP PRN, #20 TAB ODT TAB-DISSOLVE IN MOUTH, THEN SWALLOW Prov: RIMA TAN PAC 03/05/24 Discharged With: Self, Friend Critical Care Note Critical Care Time?: No Stability Stability form required: No I personally scribed for RIMA TAN PAC ([email or web address]) on 03/05/24 at 17:40. Electronically submitted by Selene Calero ([facility]). I personally scribed for RIMA TAN PAC ([email or web address]) on 03/05/24 at 19:14. Electronically submitted by Selene Calero ([facility]). RIMA TAN PAC Mar 05, 2024 17:40
[2024-03-05 17:47] LABS: Urine Bacteria None Seen /hpf (None Seen); Urine WBC None Seen /hpf (0 - 5)
[2024-03-05 18:16] LABS: Basophils # (auto) 0.1 10 ^3/uL (0-0.2); Basophils % (auto) 0.7 % (0.0-2.0); Eosinophils # (auto) 0.1 10 ^3/uL (0-0.8); Eosinophils % (auto) 0.7 % (0.0-7.0); Hematocrit 41.5 % (36.0-46.0); Hemoglobin 13.7 g/dL (12.2-16.2); Lymphocytes # (auto) 1.8 10 ^3/uL (0.4-5.4); Lymphocytes % (auto) 22.5 % (10.0-50.0); Mean Corpuscular Hemoglobin 28.1 pg (28.0-32.0); Mean Corpuscular Hgb Conc. 33.1 g/dL (32.0-36.0); Mean Corpuscular Volume 84.9 fL (80.0-100.0); Monocytes # (auto) 0.5 10 ^3/uL (0-1.3); Monocytes % (auto) 5.9 % (0.0-12.0); Neutrophils # (auto) 5.6 10 ^3/uL (1.6-8.6); Neutrophils % (auto) 70.2 % (37.0-80.0); Nucleated Red Blood Cells % 0.1 %; Platelet Count (auto) 272 10^3/uL (140-450); Red Blood Cells 4.88 10^6/uL (4.0-5.20); Red Cell Distribution Width 13.5 % (11.8-14.3); White Blood Cell 8.1 10^3/uL (4.4-10.8)
[2024-03-05 18:23] LABS: Urine Blood Negative /uL (Negative); Urine Clarity Clear (Clear); Urine Color Light-Yellow (Yellow); Urine Mucus FEW (None Seen); Urine Protein, UAD TRACE (Negative); Urine Specific Gravity 1.026 (1.001-1.035); Urine Urobilinogen Normal (Negative); Urine pH 7.5 (5.0-9.0)
--- NOTE | 2024-03-05 18:24 | DVH ---
Exam: CT CT AB PEL WO CON-NO ORAL OR IV History: Left-sided abdominal pain Comparison Study: CT CT AB PEL WO CON-NO ORAL OR IV on DOS: 12/24/23, CT CT AB PEL WO CON-NO ORAL OR IV on DOS: 02/12/23, CT CT AB PEL WO CON-NO ORAL OR IV on DOS: 09/27/22 Technique: Multidetector spiral CT of the abdomen and pelvis was performed from lung bases to pubic symphysis. Imaging was performed without IV contrast. Axial, coronal and sagittal multiplanar reform ats were obtained from the axial data set by the technologist. Radiation dose : Abdomen/Pelvis: CTDIvol 6 mGy, DLP 297.74 mGy*cm. Findings: Evaluation of solid organs is limited due to lack of intravenous contrast use. Lung Bases: No acute or significant lung base finding. Normal heart size. No pleural or pericardial effusion. Liver: The liver is normal in size. No focal lesions. Gallbladder and biliary Tree: Unremarkable Spleen: Unremarkable Pancreas: The pancreas is grossly normal in appearance. Adrenal Glands: Unremarkable Kidneys: Kidneys are grossly normal without calculi or hydronephrosis. Bladder: Grossly unremarkable for degree of distention. Bowel: The stomach is grossly normal in appearance. Small bowel and colon are normal in caliber and d istribution. There is radiodense material in a normal-appearing appendix. Ascites: Trace free fluid in the pelvis. Lymphadenopathy: No mesenteric, retroperitoneal or periportal lymphadenopathy. Abdominal wall and Mesentery: Unremarkable. Vasculature: The visualized abdominal aorta is normal in size and caliber. Evaluation of abdominal a nd pelvic vessels is limited due to lack of intravenous contrast. Pelvic Organs: Unremarkable Musculoskeletal: No aggressive focal bony lesions, acute fractures or dislocation. IMPRESSION: 1. No acute abdominal or pelvic findings. Trace free fluid in the pelvis is likely physiologic. Radiation optimization: All CT scans at this facility use at least one of these dose optimization renita hniques: Automated exposure control mA and/or kV adjustment per patient size (includes targeted exams where dose is matched to clinical indication) or iterative reconstruction. HS:Y
[2024-03-05 18:40] VITALS: PULSE 81; RESP 17; TEMP 98.2; O2SAT 100
[2024-03-05 19:08] LABS: Anion Gap 12 (5-15); BUN/Creatinine Ratio 16.1 (10.0-20.0)
[2024-03-05 19:09] LABS: Blood Urea Nitrogen 10 mg/dL (9-23); Calcium 9.8 mg/dL (8.7-10.4); Carbon Dioxide 21 mmol/L (20-31); Chloride 107 mmol/L (98-107); Glucose 86 mg/dL (74-106); Lipase 39 U/L (12-53); Potassium 3.5 mmol/L (3.5-5.1); Sodium 140 mmol/L (136-145)
[2024-03-05] MEDS ORDERED: DICY10CA PO (19:20)
[2024-03-05] MEDS ORDERED: ZOFR4T PO (19:20)
[2024-03-05] MEDS: ONDANSETRON ODT 4 MG TAB PO ONE (19:44)
[2024-03-05] MEDS: KETOROLAC TROMETH 60MG/2ML VIAL IM ONE (19:45)
[2024-03-05 19:53] VITALS: BP 116/54; PULSE 72; RESP 18; O2SAT 97
== END 2024-03-05 19:53 | disposition home or self-care (01) ==
LOC: ER 16:51
DX: R10.31 Right lower quadrant pain (principal); R10.32 Left lower quadrant pain; J45.909 Unspecified asthma, uncomplicated; F41.9 Anxiety disorder, unspecified; Z87.440 Personal history of urinary (tract) infections; Z88.0 Allergy status to penicillin; Z88.8 Allergy status to other drugs, medicaments and biological substances; Z98.51 Tubal ligation status
CPT/HCPCS: 36415; 74176; 80048; 81001; 83690; 85025; 96372; 99285; J1885; Q0162

== ENCOUNTER 2024-04-24 15:17 | Emergency (ER) | payer MEDICAID ==
[~2024-04-24 15:17] MED LIST changes: +DICY10CA PO; +ZOFR4T PO
--- NOTE | 2024-04-24 15:38 | ECG ---
[facility] Test Date: 2024-04-24 Test Time: 15:30:43 Pat Name: MICHAEL BANEGAS Department: ER Room: Gender: F [employer]: GREGG : 1995 Requested By: TOAN FELIX Order Number: [id number] Reading MD: Brennen Soriano Measurements Intervals [place] Rate: 125 P: 68 NE: 121 QRS: 71 QRSD: 83 T: -67 QT: 286 QTc: 413 Interpretive Statements Sinus tachycardia Borderline repolarization abnormality Electronically Signed On 04-24-2024 17:26:21 PST by Brennen Soriano Please click the below link to view image of tracing.
--- NOTE | 2024-04-24 15:53 | ED.PDOC ---
History of Present Illness HPI Comments 29F presents to the ER w/ prior Hx of Anxiety, Asthma, Depression, PE, UTI Acute Intermittent Porphyria, tubal ligation and an appendectomy which all may be associated to the c/c of N/V. Pt reports on having N/V for the past 8 days associated w/ left lower back pain and SOB. Family Hx of Cancer Ana Nirmal and DM. Denies chills, fever, /D, CP or other associated symptom's, modifiers, or recent injuries or sick contact at this time. Chief Complaint: Nausea/Vomiting Time Seen by MD: 15:30 Primary Care Provider: UNKNOWN Reviewed Notes: Nurses Notes, Medications, Allergies Allergies: Coded Allergies: Piperacillin (Verified Allergy, Intermediate, PRURITIS, 12/25/23) PATIENT C/O ITCHINESS 15 MIN AFTER MEDICATION STARTED VIA IV Tazobactam (Verified Allergy, Intermediate, PRURITIS, 12/25/23) PATIENT C/O ITCHINESS 15 MIN AFTER MEDICATION STARTED VIA IV Diphenhydramine (Verified Allergy, Unknown, 01/01/23) Heparin (Verified Allergy, Unknown, 01/01/23) Levetiracetam (Verified Allergy, Unknown, 01/01/23) Pineapple (Verified Allergy, Unknown, 01/01/23) Shellfish Allergy (Verified Allergy, Unknown, 01/01/23) Uncoded Allergies: CONTRAST DYE (Allergy, Severe, 02/21/22) Home Meds Active Scripts Dicyclomine Hcl (BENTYL CAPSULE) 10 Mg Cp, 1 CAP PO Q6HPRN, #20 CAP 0 Refills Prov:RIMA TAN PAC 03/05/24 Ondansetron Odt 4MG Tab (ZOFRAN PO) 4 Mg Tb, 4 MG PO Q6HP PRN, #20 TAB ODT TAB-DISSOLVE IN MOUTH, THEN SWALLOW Prov:RIMA TAN PAC 03/05/24 Calamine-Zinc Oxide (Calamine 8-8 %) 1 Karina Karina, 1 APPLIC EX QID for 10 Days, #1 KIT 0 Refills Prov:BELEM ERICKSON AMMONIA REFRIGERATION WORKER 12/30/23 Hydroxyzine Hcl (Hydroxyzine Hcl) 25 Mg Tab, 1 TAB PO TIDPRN PRN for 10 Days, #30 TAB 0 Refills Prov:BELEM ERICKSON AMMONIA REFRIGERATION WORKER 9/30/24 Methylprednisolone (Medrol Dosepak) 4 Mg John, 4 MG PO UD, #21 TAB 0 Refills UAD Prov:BELEM ERICKSON AMMONIA REFRIGERATION WORKER 12/30/23 Levofloxacin Hemihydrate (LEVOFLOXACIN) 500 Mg Tab, 1 TAB PO DAILY for 7 Days, #7 TAB Prov:GLEN JARAMILLO DO 12/29/23 Reported Medications Buspirone HCl (Buspirone Hydrochloride) 15 Mg Tab, 1 TAB PO BID 12/25/23 Information Source: Patient Mode of Arrival: Ambulatory Severity: Moderate Timing: Days Duration: Since onset, Days Prehospital treatment: None Past Medical History PAST MEDICAL HISTORY: Anxiety, Asthma, Depression, PE, UTI'S Past Medical History (Other): Acute Intermittent Porphyria Surgical History: Appendectomy, Tubal Ligation MEDICAL DONATION PROFESSIONAL History: No Pertinent MEDICAL DONATION PROFESSIONAL History Family History Family History: Reviewed,noncontributory to illness, Family hx of DM, Family hx of Cancer, Family hx of heart nirmal Social History Smoker: Non-Smoker Alcohol: Denies ETOH Use Drugs: Denies Drug Use Lives In: Home Constitutional: denies: chills, diaphoresis, fatigue, fever, malaise, sweats, weakness, others EENTM: denies: blurred vision, double vision, ear bleeding, ear discharge, ear drainage, ear pain, ear ringing, eye pain, eye redness, hearing loss, mouth pain, mouth swelling, nasal discharge, nose bleeding, nose congestion, nose pain, photophobia, tearing, throat pain, throat swelling, voice changes, others Respiratory: reports: shortness of breath; denies: cough, hemoptysis, orthopnea, SOB at rest, SOB with excertion, stridor, wheezing, others Cardiovascular: denies: chest pain, dizzy spells, diaphoresis, Dyspnea on exertion, edema, irregular heart beat, left arm pain, lightheadedness, palpitations, PND, syncope, others Gastrointestinal: reports: nausea, vomiting; denies: abdomen distended, abdominal pain, blood streaked bowels, constipated, diarrhea, dysphagia, difficulty swallowing, hematemesis, melena, poor appetite, poor fluid intake, rectal bleeding, rectal pain, others Genitourinary: denies: abnormal vagina bleeding, burning, dyspareunia, dysuria, flank pain, frequency, hematuria, incontinence, pain, , vagina discharge , urgency, others Neurological: denies: dizziness, fainting, headache, left sided numbness, left sided weakness, numbness, paresthesia, pre-existing deficit, right sided numbness, right sided weakness, seizure, speech problems, tingling, tremors, weakness, others Musculoskeletal: reports: back pain; denies: gout, joint pain, joint swelling, muscle pain, muscle stiffness, neck pain, others Integumetry: denies: bruises, change in color, change in hair/nails, dryness, laceration, lesions, lumps, rash, wounds, others Allergic/Immunocompromised: denies: Difficulty Healing, Frequent Infections, Hives, Itching, others Hematologic/Lymphatic: denies: anemia, blood clots, easy bleeding, easy bruising, swollen glands, others Endocrine: denies: excessive hunger, excessive sweating, excessive thirst, excessive urination, flushing, intolerance to cold, intolerance to heat, unexplained weight gain, unexplained weight loss, others Psychiatric: denies: anxiety, bipolar disorder, depression, hopeless, panic disorder, schizophrenia, sleepless, suicidal, others All Other Systems: Reviewed and Negative Physical Exam General Appearance: No Apparent Distress HEENT: Normal ENT Inspection, Pharynx Normal, TMs Normal Neck: Full Range of Motion, Non-Tender, Normal, Normal Inspection Respiratory: Chest Non-Tender, Lungs Clear, No Accessory Muscle Use, No Respiratory Distress, Normal Breath Sounds Cardiovascular: No Edema, No JVD, No Murmur, No Gallop, Normal Peripheral Pulses, Regular Rate/Rhythm Breast Exam: Deferred Gastrointestinal: No Organomegaly, Non Tender, No Pulsatile Mass, Normal Bowel Sounds, Soft Genitalia: Deferred Pelvic: Deferred Rectal: Deferred Extremities: No calf tenderness, Normal capillary refill, Normal inspection, Normal range of motion, Non-tender, No pedal edema Musculoskeletal : Location: Left Extremity Location: Back Apperance: Tenderness: Mild Neurologic: Alert, partnership marketing manager II-XII nml as Tested, No Motor Deficits, Normal Affect, Normal Mood, No Sensory Deficits Cerebellar Function: Normal Reflexes: Normal Skin: Dry, Normal Color, Warm Lymphatic: No Adenopathy Was a procedure done? Was a procedure done?: No EKG EKG : Pulse Rate (adult): 125 Remer: Normal Cardiac Rhythm: ST Block: None Hypertrophy: None ST: Normal Differential Dx Considerations may include: UTI, viral syndrome, generalized weakness, abdominal pain X-Ray, Labs, Meds, VS Vital Signs Date Time Temp Pulse Resp B/P (MAP) Pulse Ox O2 Delivery O2 Flow Rate FiO2 04/24/24 18:06 110 16 97 Room Air* 0 21 04/24/24 16:22 110 18 99 Room Air 04/24/24 16:22 98.6 110 18 116/71 (86) 99 98.6 04/24/24 15:53 125 04/24/24 15:30 125 04/24/24 15:25 99.9 119 20 124/68 (86) 98 Lab Test 04/24/24 17:00 04/24/24 16:00 04/24/24 15:34 Range/Units Urine Color Yellow Yellow Urine Clarity Clear Clear Urine pH 5.5 5.0-9.0 Urine Specific [place] 1.041 H 1.001-1.035 Urine Protein 1+ H Negative Urine Ketones 4+ H Negative Urine Blood 1+ H Negative /uL Urine Nitrite Negative Negative Urine Bilirubin 1+ H Negative Urine Urobilinogen 6 Negative mg/dL Urine Leukocyte Esterase Negative Negative /uL Urine RBC 6 0 - 4 /hpf Urine Microscopic WBC 2 0-5 /HPF Urine Squamous Epithelial Cells Few <5 /hpf Urine Bacteria Few H None Seen /hpf Urine Mucus Few None Seen Urine Glucose 3+ H Normal mg/dL White Blood Count 9.8 4.4-10.8 10^3/uL Red Blood Count 4.98 4.0-5.20 10^6/uL Hemoglobin 14.2 12.2-16.2 g/dL Hematocrit 42.4 36.0-46.0 % Mean Corpuscular Volume 85.1 80.0-100.0 fL Mean Corpuscular Hemoglobin 28.4 28.0-32.0 pg Mean Corpuscular Hemoglobin Concent 33.4 32.0-36.0 g/dL Red Cell Distribution Width 13.5 11.8-14.3 % Platelet Count 282 140-450 10^3/uL Mean Platelet Volume 8.1 6.9-10.8 fL Neutrophils (%) (Auto) 77.3 37.0-80.0 % Lymphocytes (%) (Auto) 17.2 10.0-50.0 % Monocytes (%) (Auto) 4.7 0.0-12.0 % Eosinophils (%) (Auto) 0.5 0.0-7.0 % Basophils (%) (Auto) 0.3 0.0-2.0 % Neutrophils # (Auto) 7.6 1.6-8.6 10 ^3/uL Lymphocytes # (Auto) 1.7 0.4-5.4 10 ^3/uL Monocytes # (Auto) 0.5 0-1.3 10 ^3/uL Eosinophils # (Auto) 0 0-0.8 10 ^3/uL Basophils # (Auto) 0 0-0.2 10 ^3/uL Nucleated Red Blood Cells 0.1 % Sodium Level 137 136-145 mmol/L Potassium Level 3.1 L 3.5-5.1 mmol/L Chloride Level 106 98-107 mmol/L Carbon Dioxide Level 20 20-31 mmol/L Anion Gap 11 5-15 Blood Urea Nitrogen 11 9-23 mg/dL Creatinine 0.80 0.550-1.02 mg/dL Glomerular Filtration Rate Calc 102 >90 mL/min BUN/Creatinine Ratio 13.8 10.0-20.0 Serum Glucose 173 H 74-106 mg/dL Calcium Level 10.4 8.7-10.4 mg/dL Total Bilirubin 1.1 H 0.2-1.0 mg/dL Aspartate Amino Transferase (AST) 10 L 13-40 U/L Alanine Aminotransferase (ALT) < 9 7-40 U/L Alkaline Phosphatase 61 46-116 U/L Total Protein 7.4 5.7-8.2 g/dL Albumin 4.9 H 3.2-4.8 g/dL Lipase 37 12-53 U/L Beta HCG, Quantitative 0.4 L 1.5-4.2 mIU/mL POC Glucose 184 H 70-106 mg/dl CT scan of the abdomen and pelvis is within normal limits The patient's CBC is within normal limits The chemistry panel is within normal limits The urine test is positive for UTI The patient was given a prescription of Macrobid The patient will return to the emergency department's the condition worsens It seems that the patient may have eloped prior to receiving the prescriptions as Zofran and Macrobid Images Reviewed?: Images reviewed and evaluated by me Time of 1ST Reevaluation: 16:00 Reevaluation 1ST: Unchanged Time of 2ND Reevaluation: 18:50 Reevaluation 2ND: Improved Patient Education/Counseling: Diagnosis, Treatment, Prognosis, Need For Follow Up Family Education/Counseling: No Family Present Departure 1 Departure Time of Disposition: 18:50 Impression: Primary Impression: Abdominal pain Qualified Codes: R10.32 - Left lower quadrant pain Additional Impression: Nausea vomiting and diarrhea Disposition: 01 HOME / SELF CARE / HOMELESS Condition: Fair Discharged With: Self Critical Care Note Critical Care Time?: No Stability Stability form required: No Heart Score Heart Score: Heart Score Response (Comments) Value History N/A 0 EKG N/A 0 Age N/A 0 Risk Factors N/A 0 Troponin N/A 0 Total 0 I personally scribed for TOAN FELIX MD ([email or web address]) on 04/24/24 at 15:53. Electronically submitted by Trey Cole ([email or web address]). TOAN FELIX MD Apr 24, 2024 15:53
[2024-04-24] MEDS ORDERED: SODIUM CHLORIDE 0.9% 500 ML IVB ONE (16:00)
[2024-04-24] MEDS ORDERED: ONDANSETRON HCL 4 MG/2 ML VIAL IV ONE (16:00)
[2024-04-24 16:11] LABS: Basophils # (auto) 0 10 ^3/uL (0-0.2); Basophils % (auto) 0.3 % (0.0-2.0); Eosinophils # (auto) 0 10 ^3/uL (0-0.8); Eosinophils % (auto) 0.5 % (0.0-7.0); Hematocrit 42.4 % (36.0-46.0); Hemoglobin 14.2 g/dL (12.2-16.2); Lymphocytes # (auto) 1.7 10 ^3/uL (0.4-5.4); Lymphocytes % (auto) 17.2 % (10.0-50.0); Mean Corpuscular Hemoglobin 28.4 pg (28.0-32.0); Mean Corpuscular Hgb Conc. 33.4 g/dL (32.0-36.0); Mean Corpuscular Volume 85.1 fL (80.0-100.0); Monocytes # (auto) 0.5 10 ^3/uL (0-1.3); Monocytes % (auto) 4.7 % (0.0-12.0); Neutrophils # (auto) 7.6 10 ^3/uL (1.6-8.6); Neutrophils % (auto) 77.3 % (37.0-80.0); Nucleated Red Blood Cells % 0.1 %; Platelet Count (auto) 282 10^3/uL (140-450); Red Blood Cells 4.98 10^6/uL (4.0-5.20); Red Cell Distribution Width 13.5 % (11.8-14.3); White Blood Cell 9.8 10^3/uL (4.4-10.8)
[2024-04-24 16:21] LABS: Alkaline Phosphatase 61 U/L (46-116); Anion Gap 11 (5-15); BUN/Creatinine Ratio 13.8 (10.0-20.0); Blood Urea Nitrogen 11 mg/dL (9-23); Calcium 10.4 mg/dL (8.7-10.4); Carbon Dioxide 20 mmol/L (20-31); Chloride 106 mmol/L (98-107); Lipase 37 U/L (12-53); Sodium 137 mmol/L (136-145)
[2024-04-24 16:22] VITALS: BP 116/71; TEMP 98.6
[2024-04-24 16:22] LABS: Bilirubin, Total 1.1 mg/dL (0.2-1.0); Total Protein 7.4 g/dL (5.7-8.2)
[2024-04-24 16:23] LABS: Alanine Aminotransferase < 9 U/L (7-40); Albumin 4.9 g/dL (3.2-4.8); Aspartate Aminotransferase 10 U/L (13-40); Glucose 173 mg/dL (74-106); Potassium 3.1 mmol/L (3.5-5.1)
--- NOTE | 2024-04-24 17:17 | DVH ---
Exam: CT CT AB PEL WO CON-NO ORAL OR IV History: pain Comparison Study: 03/05/2024 TECHNIQUE: Multidetector CT of the abdomen and pelvis without contrast. Axial, coronal and sagittal m ultiplanar reformats were obtained from the axial data set by the technologist. Radiation Dose Information: CT Dose: CTDI volume is 5.64 mGy. Dose-length product is 258.38 mGy*cm FINDINGS: The lung bases are clear. Partially visualized heart is unremarkable. Liver, pancreas and adrenal glands are unremarkable. Mild splenomegaly with no focal splenic lesion s. Possible sludge within the gallbladder with no CT evidence of acute cholecystitis. Kidneys, and ureters are unremarkable. Urinary bladder is decompressed. Uterus and adnexa are unrema rkable. Stomach is unremarkable. Small bowel loops are unremarkable. Status post appendectomy. Small to mode rate amount of fecal material within the colon. No evidence of intraperitoneal free air or free fluid. No evidence of aortic aneurysm. No significant lymphadenopathy. The soft tissues unremarkable. No destructive osseous lesions are noted. IMPRESSION: No acute abdominal or pelvic finding.
[2024-04-24 17:30] LABS: Urine Bacteria FEW /hpf (None Seen); Urine Blood 1+ /uL (Negative); Urine Clarity Clear (Clear); Urine Color Yellow (Yellow); Urine Mucus FEW (None Seen); Urine Protein, UAD 1+ (Negative); Urine Specific Gravity 1.041 (1.001-1.035); Urine Squamous Epithelial Cell FEW /hpf (<5); Urine Urobilinogen 6 mg/dL (Negative); Urine WBC 2 /HPF (0-5); Urine pH 5.5 (5.0-9.0)
[2024-04-24 18:06] VITALS: PULSE 110; RESP 16; O2SAT 97
[2024-04-24] MEDS ORDERED: ZOFR4T PO (18:52)
[2024-04-24] MEDS ORDERED: NITR-87 PO (18:52)
== END 2024-04-24 18:49 | disposition left against medical advice (07) ==
LOC: ER 15:17
DX: R10.32 Left lower quadrant pain (principal); R11.2 Nausea with vomiting, unspecified; R19.7 Diarrhea, unspecified; J45.909 Unspecified asthma, uncomplicated; F41.9 Anxiety disorder, unspecified; Z90.49 Acquired absence of other specified parts of digestive tract; Z98.51 Tubal ligation status; Z79.899 Other long term (current) drug therapy; Z88.0 Allergy status to penicillin; Z88.8 Allergy status to other drugs, medicaments and biological substances; Z91.013 Allergy to seafood; Z91.018 Allergy to other foods
CPT/HCPCS: 36415; 74176; 80053; 81001; 82962; 83690; 84702; 85025; 93005

== ENCOUNTER 2024-10-12 12:57 | Emergency (ER) | payer MEDICAID ==
[~2024-10-12] VITALS: Ht 157.5 cm; Wt 50.6 kg
[~2024-10-12 12:57] MED LIST changes: +NITR-87 PO
--- NOTE | 2024-10-12 13:24 | ED.PDOC ---
GI ASSESSMENT HPI Comments 29 y.o female with PMHx of acute intermittent porphyria and seizures, presents to the ED for a chief complaint of LUQ pain associated with nausea and vomiting that started 3 days ago. Patient rates pain a 5/10 on the pain scale, described as sharp, constant, non radiating and has no alleviating factors. Patient has had 3 episodes of non bilious non bloody emesis today. Patient denies any diarrhea, fever, chills, dysuria, hematuria. She denies substance, alcohol or tobacco use. Chief Complaint: Abdominal Pain Time Seen by MD: 13:08 Primary Care Provider: UNKNOWN Reviewed Notes: Nurses Notes, Medications, Allergies Allergies: Coded Allergies: Piperacillin (Verified Allergy, Intermediate, PRURITIS, 12/25/23) PATIENT C/O ITCHINESS 15 MIN AFTER MEDICATION STARTED VIA IV Tazobactam (Verified Allergy, Intermediate, PRURITIS, 12/25/23) PATIENT C/O ITCHINESS 15 MIN AFTER MEDICATION STARTED VIA IV Diphenhydramine (Verified Allergy, Unknown, 01/01/23) Heparin (Verified Allergy, Unknown, 01/01/23) Levetiracetam (Verified Allergy, Unknown, 01/01/23) Pineapple (Verified Allergy, Unknown, 01/01/23) Shellfish Allergy (Verified Allergy, Unknown, 01/01/23) Uncoded Allergies: CONTRAST DYE (Allergy, Severe, 02/21/22) Home Meds Active Scripts Nitrofurantoin Monohydrate Mac (Macrobid) 100 Mg Cap, 100 MG PO BID for 5 Days, #10 CAP Prov:TOAN FELIX MD 04/24/24 Ondansetron Odt 4MG Tab (ZOFRAN PO) 4 Mg Tb, 4 MG PO Q6HP PRN, #20 TAB ODT TAB-DISSOLVE IN MOUTH, THEN SWALLOW Prov:TOAN FELIX MD 04/24/24 Dicyclomine Hcl (BENTYL CAPSULE) 10 Mg Cp, 1 CAP PO Q6HPRN, #20 CAP 0 Refills Prov:RIMA TAN PAC 03/05/24 Calamine-Zinc Oxide (Calamine 8-8 %) 1 Karina Karina, 1 APPLIC EX QID for 10 Days, #1 KIT 0 Refills Prov:BELEM ERICKSON PUNCHBOARD ASSEMBLER 12/30/23 Hydroxyzine Hcl (Hydroxyzine Hcl) 25 Mg Tab, 1 TAB PO TIDPRN PRN for 10 Days, #30 TAB 0 Refills Prov:BELEM ERICKSON PUNCHBOARD ASSEMBLER 12/30/23 Methylprednisolone (Medrol Dosepak) 4 Mg John, 4 MG PO UD, #21 TAB 0 Refills UAD Prov:BELEM ERICKSON PUNCHBOARD ASSEMBLER 12/30/23 Levofloxacin Hemihydrate (LEVOFLOXACIN) 500 Mg Tab, 1 TAB PO DAILY for 7 Days, #7 TAB Prov:GLEN JARAMILLO DO 12/29/23 Reported Medications Buspirone HCl (Buspirone Hydrochloride) 15 Mg Tab, 1 TAB PO BID 12/25/23 Information Source: Patient Mode of Arrival: Ambulatory Timing: Days (3) Duration: Since onset Quality: Aching, Sharp Vomitus: Hard Stool: Normal Severity: Moderate Recent: None Recent Hx of: None Pain Location: LUQ Modifying Factors: Nothing Associated sign and symptoms: Nausea, Vomiting, Abdominal Pain Past Medical History PAST MEDICAL HISTORY: Anxiety, Asthma, Depression, PE, Seizures, UTI'S Past Medical History (Other): acute intermittent porphyria Surgical History: Appendectomy, Tubal Ligation COMPLIANCE MANAGER History: No Pertinent COMPLIANCE MANAGER History Family History Family History: Reviewed,noncontributory to illness, Family hx of DM, Family hx of Cancer, Family hx of heart nirmal Social History Smoker: Non-Smoker Alcohol: Denies ETOH Use Drugs: Denies Drug Use Lives In: Home Constitutional: denies: chills, diaphoresis, fatigue, fever, malaise, sweats, weakness, others EENTM: denies: blurred vision, double vision, ear bleeding, ear discharge, ear drainage, ear pain, ear ringing, eye pain, eye redness, hearing loss, mouth pain, mouth swelling, nasal discharge, nose bleeding, nose congestion, nose pain, photophobia, tearing, throat pain, throat swelling, voice changes, others Respiratory: denies: cough, hemoptysis, orthopnea, SOB at rest, shortness of breath, SOB with excertion, stridor, wheezing, others Cardiovascular: denies: chest pain, dizzy spells, diaphoresis, Dyspnea on exertion, edema, irregular heart beat, left arm pain, lightheadedness, palpitations, PND, syncope, others Gastrointestinal: reports: abdominal pain, nausea, vomiting; denies: abdomen distended, blood streaked bowels, constipated, diarrhea, dysphagia, difficulty swallowing, hematemesis, melena, poor appetite, poor fluid intake, rectal bleeding, rectal pain, others Genitourinary: denies: abnormal vagina bleeding, burning, dyspareunia, dysuria, flank pain, frequency, hematuria, incontinence, pain, , vagina discharge, urgency, others Neurological: denies: dizziness, fainting, headache, left sided numbness, left sided weakness, numbness, paresthesia, pre-existing deficit, right sided numbness, right sided weakness, seizure, speech problems, tingling, tremors, weakness, others Musculoskeletal: denies: back pain, gout, joint pain, joint swelling, muscle pain, muscle stiffness, neck pain, others Integumetry: denies: bruises, change in color, change in hair/nails, dryness, laceration, lesions, lumps, rash, wounds, others Allergic/Immunocompromised: denies: Difficulty Healing, Frequent Infections, Hives, Itching, others Hematologic/Lymphatic: denies: anemia, blood clots, easy bleeding, easy bruising, swollen glands, others Endocrine: denies: excessive hunger, excessive sweating, excessive thirst, excessive urination, flushing, intolerance to cold, intolerance to heat, unexplained weight gain, unexplained weight loss, others Psychiatric: denies: anxiety, bipolar disorder, depression, hopeless, panic disorder, schizophrenia, sleepless, suicidal, others All Other Systems: Reviewed and Negative Physical Exam General Appearance: Mild Distress, Moderate Distress HEENT: Normal ENT Inspection, Pharynx Normal, TMs Normal Neck: Full Range of Motion, Non-Tender, Normal, Normal Inspection Respiratory: Chest Non-Tender, Lungs Clear, No Accessory Muscle Use, No Respiratory Distress, Normal Breath Sounds Cardiovascular: No Edema, No JVD, No Murmur, No Gallop, Normal Peripheral Pulses, Regular Rate/Rhythm Breast Exam: Deferred Gastrointestinal: Diffuse, No Organomegaly, No Pulsatile Mass, Normal Bowel Sounds, Soft, Tenderness Genitalia: Deferred Pelvic: Deferred Rectal: Deferred Extremities: No calf tenderness, Normal capillary refill, Normal inspection, Normal range of motion, Non-tender, No pedal edema Musculoskeletal : Apperance: Normal Neurologic: Alert, operations asst II-XII nml as Tested, Motor Weakness, Normal Affect, Normal Mood, No Sensory Deficits Cerebellar Function: Normal Reflexes: Normal Skin: Dry, Normal Color, Warm Lymphatic: No Adenopathy Was a procedure done? Was a procedure done?: No GI differential Dx Differential Diagnosis: Cholangitis, Cholecystitis, Gastroenteritis, Inflammatory BD, Porphyria, UTI, Dehydration, Electrolyte Imbalance, Food Poisoning, , Bacterial, Parasitic, Viral X-Ray, Labs, Meds, VS Vital Signs Date Time Temp Pulse Resp B/P (MAP) Pulse Ox O2 Delivery O2 Flow Rate FiO2 10/12/24 13:15 98.3 118 16 121/70 (87) 100 98.3 Lab Test 10/12/24 14:36 10/12/24 13:30 Range/Units White Blood Count 8.1 4.4-10.8 10^3/uL Red Blood Count 4.97 4.0-5.20 10^6/uL Hemoglobin 14.8 12.2-16.2 g/dL Hematocrit 45.0 36.0-46.0 % Mean Corpuscular Volume 90.6 80.0-100.0 fL Mean Corpuscular Hemoglobin 29.8 28.0-32.0 pg Mean Corpuscular Hemoglobin Concent 32.9 32.0-36.0 g/dL Red Cell Distribution Width 14.1 11.8-14.3 % Platelet Count 236 140-450 10^3/uL Mean Platelet Volume 8.0 6.9-10.8 fL Neutrophils (%) (Auto) 71.3 37.0-80.0 % Lymphocytes (%) (Auto) 20.4 10.0-50.0 % Monocytes (%) (Auto) 7.0 0.0-12.0 % Eosinophils (%) (Auto) 0.8 0.0-7.0 % Basophils (%) (Auto) 0.5 0.0-2.0 % Neutrophils # (Auto) 5.8 1.6-8.6 10 ^3/uL Lymphocytes # (Auto) 1.7 0.4-5.4 10 ^3/uL Monocytes # (Auto) 0.6 0-1.3 10 ^3/uL Eosinophils # (Auto) 0.1 0-0.8 10 ^3/uL Basophils # (Auto) 0 0-0.2 10 ^3/uL Nucleated Red Blood Cells 0.0 % Sodium Level 139 136-145 mmol/L Potassium Level 3.7 3.5-5.1 mmol/L Chloride Level 109 H 98-107 mmol/L Carbon Dioxide Level 21 20-31 mmol/L Anion Gap 9 5-15 Blood Urea Nitrogen 8 L 9-23 mg/dL Creatinine 0.70 0.550-1.02 mg/dL Glomerular Filtration Rate Calc 119 >90 mL/min BUN/Creatinine Ratio 11.4 10.0-20.0 Serum Glucose 87 74-106 mg/dL Calcium Level 9.8 8.7-10.4 mg/dL Total Bilirubin 0.4 0.2-1.0 mg/dL Aspartate Amino Transferase (AST) 30 13-40 U/L Alanine Aminotransferase (ALT) 35 7-40 U/L Alkaline Phosphatase 63 46-116 U/L Total Protein 6.9 5.7-8.2 g/dL Albumin 4.5 3.2-4.8 g/dL Urine Color Light-yellow Yellow Urine Clarity Turbid H Clear Urine pH 8.0 5.0-9.0 Urine Specific [place] 1.024 1.001-1.035 Urine Protein Negative Negative Urine Ketones Negative Negative Urine Blood Negative Negative /uL Urine Nitrite Negative Negative Urine Bilirubin Negative Negative Urine Urobilinogen Normal Negative mg/dL Urine Leukocyte Esterase Trace Negative /uL Urine RBC 3 0 - 4 /hpf Urine Microscopic WBC 6 H 0-5 /HPF Urine Squamous Epithelial Cells Mod <5 /hpf Urine Bacteria None seen None Seen /hpf Urine Mucus Few None Seen Urine Glucose Normal Normal mg/dL Urine Test Negative Negative The patient's CBC is within normal limits The chemistry panel is within normal limits The urine test is positive for UTI The patient was given Levaquin IV piggyback The patient is being admitted to the hospitalist The CAT scan of the abdomen and pelvis shows: IMPRESSION: 1. No acute abnormality identified in the abdomen or pelvis. 2. Scattered small colonic diverticula without adjacent inflammatory changes to suggest diverticulitis. 3. Additional Nonacute findings as described above For the exacerbation of lupus the patient was given Solu-Medrol 125 mg IV push The patient is being admitted at this time Images Reviewed?: Images reviewed and evaluated by me Time of 1ST Reevaluation: 13:24 Reevaluation 1ST: Unchanged Patient Education/Counseling: Diagnosis, Treatment, Prognosis Family Education/Counseling: No Family Present SEPSIS Sepsis Screen Date sepsis recognized/suspect: Oct 12, 2024 Time Sepsis recognized/suspect: 1257 Recent Procedure: No On Antibiotic Therapy: No Respiratory Rate >20: No Heart Rate >90: Yes Temp<36 C (96.8 F) or >38.3 C: No SBP <90 or MAP <65 mmHG: No New Acute Mental Status Change: No Is the patient on CPAP, BIPAP,: No Physician Orders Ct Ab Pel Wo Con-No Oral Or Iv (10/12/24 13:17) Methylprednisolone Sod Succ (Solu Medrol (10/12/24 15:30) Levofloxacin Levaquin (10/12/24 15:30) Vital Signs Date Time Temp Pulse Resp B/P (MAP) Pulse Ox O2 Delivery O2 Flow Rate FiO2 10/12/24 13:15 98.3 118 16 121/70 (87) 100 98.3 Laboratory Tests Test 10/12/24 14:36 White Blood Count 8.1 10^3/uL (4.4-10.8) Departure 1 Departure Time of Disposition: 15:23 Impression: Primary Impression: Intractable abdominal pain Additional Impressions: SLE exacerbation UTI (urinary tract infection) Qualified Codes: N30.00 - Acute cystitis without hematuria Disposition: ADMITTED INPATIENT Admit to: Med Surg Condition: Fair Critical Care Note Critical Care Time?: No Stability Stability form required: Yes Unstable for transfer: ED Physician Assesment (Clinical assesment) Heart Score Heart Score: Heart Score Response (Comments) Value History N/A 0 EKG N/A 0 Age N/A 0 Risk Factors N/A 0 Troponin N/A 0 Total 0 I personally scribed for TOAN FELIX MD ([email or web address]) on 10/12/24 at 13:24. Electronically submitted by Selene Calero ([facility]). TOAN FELIX MD Oct 12, 2024 13:24
[2024-10-12 14:37] LABS: Urine Protein, UAD Negative (Negative)
[2024-10-12 15:05] LABS: Hematocrit 45.0 % (36.0-46.0); Hemoglobin 14.8 g/dL (12.2-16.2); Mean Corpuscular Hemoglobin 29.8 pg (28.0-32.0); Mean Corpuscular Volume 90.6 fL (80.0-100.0); Nucleated Red Blood Cells % 0.0 %
[2024-10-12 15:10] LABS: Alanine Aminotransferase 35 U/L (7-40); Albumin 4.5 g/dL (3.2-4.8); Alkaline Phosphatase 63 U/L (46-116); Anion Gap 9 (5-15); BUN/Creatinine Ratio 11.4 (10.0-20.0); Calcium 9.8 mg/dL (8.7-10.4); Carbon Dioxide 21 mmol/L (20-31); Glucose 87 mg/dL (74-106); Potassium 3.7 mmol/L (3.5-5.1); Sodium 139 mmol/L (136-145); Total Protein 6.9 g/dL (5.7-8.2)
[2024-10-12 15:11] LABS: Bilirubin, Total 0.4 mg/dL (0.2-1.0); Blood Urea Nitrogen 8 mg/dL (9-23); Chloride 109 mmol/L (98-107)
--- NOTE | 2024-10-12 15:16 | DVH ---
CLINICAL INFORMATION: Pain. TECHNIQUE: Axial CT images of the abdomen and pelvis were obtained without IV contrast. Coronal and s agittal reformatted images were obtained, reviewed, and stored. Evaluation of the parenchymal organs is limited without IV contrast. Evaluation of the bowel and mesentery is limited without oral contras t. All CT scans at this medical facility are performed using dose modulation techniques as appropriat e to a performed exam including the following: Automated exposure control was utilized; adjustment of the MA and/or KV according to patient size; and use of iterative reconstruction technique. CTDIvol = 5.44 mGy DLP = 279.26 mGy-cm COMPARISON: CT CT AB PEL WO CON-NO ORAL OR IV on DOS: 04/24/24, CT CT AB PEL WO CON-NO ORAL OR IV on D OS: 03/05/24, CT CT AB PEL WO CON-NO ORAL OR IV on DOS: 12/24/23 FINDINGS: Lung bases: Lung bases are clear. Liver: Grossly unremarkable in its noncontrast enhanced appearance. No abnormal density or focal lesi on identified. Biliary: No calcified gallstones or biliary ductal dilatation. Spleen: Unremarkable. Pancreas: Grossly unremarkable in its noncontrast enhanced appearance. Adrenal glands: Unremarkable. No mass. Kidneys: No hydronephrosis. No renal or ureteral calculi. Aorta/Vascular: No aneurysm or significant calcification. Retroperitoneum: No mass or lymphadenopathy. Bowel/mesentery: No small bowel obstruction. No free air or free fluid. Appendix is not visualized, l ikely surgically absent. Scattered small colonic diverticula without adjacent inflammatory changes to suggest diverticulitis. Pelvic organs: Uterus is anteverted. Bladder: Grossly unremarkable. Abdominal wall: No mass or hernia. Bones: No acute fracture or suspicious intraosseous lesion. IMPRESSION: 1. No acute abnormality identified in the abdomen or pelvis. 2. Scattered small colonic diverticula without adjacent inflammatory changes to suggest diverticuliti s. 3. Additional Nonacute findings as described above
[2024-10-12 17:05] VITALS: BP 105/50; PULSE 73; RESP 20; TEMP 98.2; O2SAT 100
[2024-10-12] MEDS: methylPREDNISolone SOD SUCC 125 MG/2 ML VL IV ONE (17:20)
[2024-10-12] MEDS: SODIUM CHLORIDE 0.9% 500 ML IV ONE (17:40)
== END 2024-10-12 19:03 | disposition home or self-care (01) ==
LOC: ER 12:57
DX: N39.0 Urinary tract infection, site not specified (principal); R10.13 Epigastric pain; M32.9 Systemic lupus erythematosus, unspecified; F41.9 Anxiety disorder, unspecified; J45.909 Unspecified asthma, uncomplicated; F32.A Depression, unspecified; Z98.51 Tubal ligation status; Z91.041 Radiographic dye allergy status; Z88.8 Allergy status to other drugs, medicaments and biological substances; Z87.440 Personal history of urinary (tract) infections; Z88.0 Allergy status to penicillin; Z79.899 Other long term (current) drug therapy; Z90.49 Acquired absence of other specified parts of digestive tract
CPT/HCPCS: 36415; 74176; 80053; 81001; 81025; 85025; 96365; 96375; 99285; J1956; J2919; J7040

== ENCOUNTER 2024-10-27 12:06 | Emergency (ER) | payer MEDICAID ==
[~2024-10-27] VITALS: Ht 157.5 cm; Wt 54.2 kg
[2024-10-27 12:20] VITALS: BP 121/56; PULSE 93; RESP 20; TEMP 97.6; O2SAT 100
[2024-10-27] MEDS ORDERED: SODIUM CHLORIDE 0.9% 1,000 ML IV ONE (12:30)
[2024-10-27] MEDS ORDERED: ONDANSETRON HCL 4 MG/2 ML VIAL IV ONE (12:30)
[2024-10-27] MEDS ORDERED: MORPHINE SULFATE 4 MG/ML SYR/VIAL IV ONE (12:30)
--- NOTE | 2024-10-27 12:49 | ED.PDOC ---
GI ASSESSMENT HPI Comments 29 y/o F, with PMHx of seizures, diverticulitis, anxiety, asthma, depression, and PE presents to the ED for CC of abdominal pain. Patient states, she has been experiencing diffuse abdominal pain with associated symptoms or nausea and vomiting x1week. Patient reports, that she was seen at [facility] x1 week ago for SS and was told to have diverticulitis and a UTI; endorses symptoms now worsening with intermittent dizziness. Patient denies hematemesis, fever, chills, dysuria, frequency, or diarrhea. No other associated symptoms, modifiers, recent injuries or sick contacts present at this time. Chief Complaint: Abdominal Pain Time Seen by MD: 12:40 Primary Care Provider: UNKNOWN Reviewed Notes: Nurses Notes, Medications, Allergies Allergies: Coded Allergies: Piperacillin (Verified Allergy, Intermediate, PRURITIS, 12/25/23) PATIENT C/O ITCHINESS 15 MIN AFTER MEDICATION STARTED VIA IV Tazobactam (Verified Allergy, Intermediate, PRURITIS, 12/25/23) PATIENT C/O ITCHINESS 15 MIN AFTER MEDICATION STARTED VIA IV Diphenhydramine (Verified Allergy, Unknown, 01/01/23) Heparin (Verified Allergy, Unknown, 01/01/23) Levetiracetam (Verified Allergy, Unknown, 01/01/23) Pineapple (Verified Allergy, Unknown, 01/01/23) Shellfish Allergy (Verified Allergy, Unknown, 01/01/23) Uncoded Allergies: CONTRAST DYE (Allergy, Severe, 02/21/22) Home Meds Active Scripts Nitrofurantoin Monohydrate Mac (Macrobid) 100 Mg Cap, 100 MG PO BID for 5 Days, #10 CAP Prov:TOAN FELIX MD 04/24/24 Ondansetron Odt 4MG Tab (ZOFRAN PO) 4 Mg Tb, 4 MG PO Q6HP PRN, #20 TAB ODT TAB-DISSOLVE IN MOUTH, THEN SWALLOW Prov:TOAN FELIX MD 04/24/24 Dicyclomine Hcl (BENTYL CAPSULE) 10 Mg Cp, 1 CAP PO Q6HPRN, #20 CAP 0 Refills Prov:RIMA TAN PAC 03/05/24 Calamine-Zinc Oxide (Calamine 8-8 %) 1 Karina Karina, 1 APPLIC EX QID for 10 Days, #1 KIT 0 Refills Prov:BELEM ERICKSON [employer]ANG[employer]PERATOR 12/30/23 Hydroxyzine Hcl (Hydroxyzine Hcl) 25 Mg Tab, 1 TAB PO TIDPRN PRN for 10 Days, #30 TAB 0 Refills Prov:BELEM ERICKSON [employer]ANG[employer] OPERATOR 12/30/23 Methylprednisolone (Medrol Dosepak) 4 Mg John, 4 MG PO UD, #21 TAB 0 Refills UAD Prov:BELEM ERICKSON [employer]ANGLE [employer] OPERATOR 12/30/23 Levofloxacin Hemihydrate (LEVOFLOXACIN) 500 Mg Tab, 1 TAB PO DAILY for 7 Days, #7 TAB Prov:GLEN JARAMILLO DO 12/29/23 Reported Medications Buspirone HCl (Buspirone Hydrochloride) 15 Mg Tab, 1 TAB PO BID 12/25/23 Information Source: Patient Mode of Arrival: Ambulatory Timing: Weeks Duration: Since onset Prehospital treatment: None Quality: None Vomitus: Watery Stool: Watery Severity: Moderate Recent: None Recent Hx of: None Pain Location: Diffuse Modifying Factors: Nothing Associated sign and symptoms: Nausea, Vomiting, Abdominal Pain Past Medical History PAST MEDICAL HISTORY: Anxiety, Asthma, Depression, PE, Seizures, UTI'S Surgical History: Appendectomy, Tubal Ligation [employer] History: No Pertinent [employer] History Family History Family History: Reviewed,noncontributory to illness, Family hx of DM, Family hx of Cancer, Family hx of heart nirmal Social History Smoker: Non-Smoker Alcohol: Denies ETOH Use Drugs: Denies Drug Use Lives In: Home Constitutional: denies: chills, diaphoresis, fatigue, fever, malaise, sweats, weakness, others EENTM: denies: blurred vision, double vision, ear bleeding, ear discharge, ear drainage, ear pain, ear ringing, eye pain, eye redness, hearing loss, mouth pain, mouth swelling, nasal discharge, nose bleeding, nose congestion, nose pain, photophobia, tearing, throat pain, throat swelling, voice changes, others Respiratory: denies: cough, hemoptysis, orthopnea, SOB at rest, shortness of breath, SOB with excertion, stridor, wheezing, others Cardiovascular: denies: chest pain, dizzy spells, diaphoresis, Dyspnea on exertion, edema, irregular heart beat, left arm pain, lightheadedness, palpitations, PND, syncope, others Gastrointestinal: reports: abdominal pain, nausea, vomiting; denies: abdomen distended, blood streaked bowels, constipated, diarrhea, dysphagia, difficulty swallowing, hematemesis, melena, poor appetite, poor fluid intake, rectal bleeding, rectal pain, others Genitourinary: denies: abnormal vagina bleeding, burning, dyspareunia, dysuria, flank pain, frequency, hematuria, incontinence, pain, , vagina discharge, urgency, others Neurological: reports: dizziness; denies: fainting, headache, left sided numbness, left sided weakness, numbness, paresthesia, pre-existing deficit, right sided numbness, right sided weakness, seizure, speech problems, tingling, tremors, weakness, others Musculoskeletal: denies: back pain, gout, joint pain, joint swelling, muscle pain, muscle stiffness, neck pain, others Integumetry: denies: bruises, change in color, change in hair/nails, dryness, laceration, lesions, lumps, rash, wounds, others Allergic/Immunocompromised: denies: Difficulty Healing, Frequent Infections, Hives, Itching, others Hematologic/Lymphatic: denies: anemia, blood clots, easy bleeding, easy bruising, swollen glands, others Endocrine: denies: excessive hunger, excessive sweating, excessive thirst, excessive urination, flushing, intolerance to cold, intolerance to heat, unexplained weight gain, unexplained weight loss, others Psychiatric: denies: anxiety, bipolar disorder, depression, hopeless, panic disorder, schizophrenia, sleepless, suicidal, others All Other Systems: Reviewed and Negative Physical Exam General Appearance: Moderate Distress, Normal, Other (lethargic) HEENT: Normal ENT Inspection, Pharynx Normal, TMs Normal Neck: Full Range of Motion, Non-Tender, Normal, Normal Inspection Respiratory: Chest Non-Tender, Lungs Clear, No Accessory Muscle Use, No Respiratory Distress, Normal Breath Sounds Cardiovascular: No Edema, No Murmur, No Gallop, Normal Peripheral Pulses, Regular Rate/Rhythm Breast Exam: Deferred Gastrointestinal: No Organomegaly, Non Tender, No Pulsatile Mass, Normal Bowel Sounds, Soft Genitalia: Deferred Pelvic: Deferred Rectal: Deferred Extremities: No calf tenderness, Normal capillary refill, Normal inspection, Normal range of motion, Non-tender, No pedal edema Musculoskeletal : Apperance: Normal Neurologic: Alert, fish machine feeder II-XII nml as Tested, No Motor Deficits, Normal Affect, Normal Mood, No Sensory Deficits Cerebellar Function: Normal Reflexes: Normal Skin: Dry, Normal Color, Warm Lymphatic: No Adenopathy Was a procedure done? Was a procedure done?: No GI differential Dx Differential Diagnosis: Diverticular disease, UTI, Electrolyte Imbalance X-Ray, Labs, Meds, VS Vital Signs Date Time Temp Pulse Resp B/P (MAP) Pulse Ox O2 Delivery O2 Flow Rate FiO2 10/27/24 12:20 97.6 93 20 121/56 100 97.6 Lab Test 10/27/24 12:50 10/27/24 12:29 Range/Units White Blood Count 6.3 4.4-10.8 10^3/uL Red Blood Count 5.02 4.0-5.20 10^6/uL Hemoglobin 14.9 12.2-16.2 g/dL Hematocrit 44.6 36.0-46.0 % Mean Corpuscular Volume 88.8 80.0-100.0 fL Mean Corpuscular Hemoglobin 29.8 28.0-32.0 pg Mean Corpuscular Hemoglobin Concent 33.5 32.0-36.0 g/dL Red Cell Distribution Width 14.0 11.8-14.3 % Platelet Count 258 140-450 10^3/uL Mean Platelet Volume 8.2 6.9-10.8 fL Neutrophils (%) (Auto) 70.4 37.0-80.0 % Lymphocytes (%) (Auto) 23.0 10.0-50.0 % Monocytes (%) (Auto) 5.7 0.0-12.0 % Eosinophils (%) (Auto) 0.4 0.0-7.0 % Basophils (%) (Auto) 0.5 0.0-2.0 % Neutrophils # (Auto) 4.4 1.6-8.6 10 ^3/uL Lymphocytes # (Auto) 1.4 0.4-5.4 10 ^3/uL Monocytes # (Auto) 0.4 0-1.3 10 ^3/uL Eosinophils # (Auto) 0 0-0.8 10 ^3/uL Basophils # (Auto) 0 0-0.2 10 ^3/uL Nucleated Red Blood Cells 0.0 % Sodium Level Pending Potassium Level Pending Chloride Level Pending Carbon Dioxide Level Pending Anion Gap Pending Blood Urea Nitrogen Pending Creatinine Pending Glomerular Filtration Rate Calc Pending BUN/Creatinine Ratio Pending Serum Glucose Pending Calcium Level Pending Urine Color Pending Urine Clarity Pending Urine pH Pending Urine Specific [place] Pending Urine Protein Pending Urine Ketones Pending Urine Blood Pending Urine Nitrite Pending Urine Bilirubin Pending Urine Urobilinogen Pending Urine Leukocyte Esterase Pending Urine RBC Pending Urine Microscopic WBC Pending Urine Squamous Epithelial Cells Pending Urine Bacteria Pending Urine Glucose Pending Time of 1ST Reevaluation: 13:10 Reevaluation 1ST: Unchanged Patient Education/Counseling: Diagnosis, Treatment Family Education/Counseling: No Family Present SEPSIS Sepsis Screen Date sepsis recognized/suspect: Oct 27, 2024 Time Sepsis recognized/suspect: 1220 Recent Procedure: No On Antibiotic Therapy: No Respiratory Rate >20: No Heart Rate >90: Yes Temp<36 C (96.8 F) or >38.3 C: No SBP <90 or MAP <65 mmHG: No New Acute Mental Status Change: No Is the patient on CPAP, BIPAP,: No Physician Orders Basic Metabolic Panel (10/27/24 12:29) Ct Ab Pel Wo Con-No Oral Or Iv (10/27/24 12:29) Urinalysis (10/27/24 12:29) Sodium Chloride 0.9% (10/27/24 12:30) Vital Signs Date Time Temp Pulse Resp B/P (MAP) Pulse Ox O2 Delivery O2 Flow Rate FiO2 10/27/24 12:20 97.6 93 20 121/56 100 97.6 Laboratory Tests Test 10/27/24 12:50 White Blood Count 6.3 10^3/uL (4.4-10.8) Departure 1 Departure Time of Disposition: 13:23 (Patient presented with abdominal pain that was concerning for possible appendicits, gastritis, cholecystitis, colitis, gastroenteritis, sbo, or orther possible surgical emergency. Data: 1. I ordered and reviewed the result of at least 3 labs including a CBC, BMP, and Urinalysis. 2. I independently interpreted the following tests: CT Abdoment and Pelvis is concerning for benign abdomen.Risk:This patient has a high risk of morbidity due to further diagnostic testing or treatment and may suffer from an acute abdominal process disorder. Workup reveals intractable abdominal pain and patient should be admitted for further workup. and possible expert consultation. ) Impression: Primary Impression: Intractable abdominal pain Additional Impression: Projectile vomiting with nausea Disposition: ADMITTED INPATIENT Admit to: Med Surg Condition: Serious Critical Care Note Critical Care Time?: Yes Critical care comment: Intractable abdominal pain Authorized and Performed by: David Nettles MD Total critical care time: Approximately 39 minutes Due to a high probability of clinically significant, life threatening deterioration, the patient required my highest level of preparedness to intervene emergently and I personally spent this critical care time directly and personally managing the patient. This critical care time included obtaining a history; examining the patient; pulse oximetry; ordering and review of studies; arranging urgent treatment with development of a management plan; evaluation of patient's response to treatment; frequent reassessment; and, discussions with other providers. This critical care time was performed to assess and manage the high probability of imminent, life-threatening deterioration that could result in multi-organ failure. It was exclusive of separately billable procedures and treating other patients and teaching time. Please see my other sections and the rest of the note for further information on patient assessment and treatment. Stability Stability form required: No Heart Score Heart Score: Heart Score Response (Comments) Value History N/A 0 EKG N/A 0 Age N/A 0 Risk Factors N/A 0 Troponin N/A 0 Total 0 I personally scribed for DAVID NETTLES MD ([email or web address]) on 10/27/24 at 12:49. Electronically submitted by Fariha Jackson ([email or web address]). DAVID NETTLES MD Oct 27, 2024 12:49
[2024-10-27 13:18] LABS: Hematocrit 44.6 % (36.0-46.0); Hemoglobin 14.9 g/dL (12.2-16.2); Mean Corpuscular Hemoglobin 29.8 pg (28.0-32.0); Mean Corpuscular Volume 88.8 fL (80.0-100.0); Nucleated Red Blood Cells % 0.0 %
--- NOTE | 2024-10-27 13:18 | DVH ---
Exam: CT CT AB PEL WO CON-NO ORAL OR IV History: worsening abdominal pain, recent hx of diverticulitis Comparison Study: CT CT AB PEL WO CON-NO ORAL OR IV on DOS: 10/12/24, CT CT AB PEL WO CON-NO ORAL OR I V on DOS: 04/24/24, CT CT AB PEL WO CON-NO ORAL OR IV on DOS: 03/05/24 TECHNIQUE: Multidetector CT of the abdomen was performed from lung bases to pubic symphysis. Imaging was performed without IV contrast. Axial, coronal and sagittal multiplanar reformats were obtained fr om the axial data set by the technologist. Radiation Dose Information: CT Dose: CTDI volume is 5.91 mGy. Dose-length product is 107.44 mGy*cm FINDINGS: The lung bases are clear. Partially visualized heart is is unremarkable. Mild splenomegaly. Otherwise, liver, spleen, gallbladder, pancreas and adrenal glands are unremarkab le. Kidneys and ureters are unremarkable. Urinary bladder is decompressed limiting evaluation. Uterus an d adnexa are unremarkable. Stomach is unremarkable. Small bowel loops are unremarkable. Appendix is not definitely visualized. Question appendectomy. Small to moderate amount of fecal material within the colon. No evidence of intraperitoneal free air or free fluid. No evidence of aortic aneurysm. No significant lymphadenopathy. The soft tissues unremarkable. No evidence of acute osseous abnormalities. Sclerotic focus of the spi nous process of T12 which most likely represents a bone island. IMPRESSION: No evidence of acute abdominopelvic abnormalities.
[2024-10-27 13:23] LABS: Urine Protein, UAD TRACE (Negative)
[2024-10-27 13:32] LABS: Chloride 106 mmol/L (98-107); Sodium 139 mmol/L (136-145)
[2024-10-27 13:33] LABS: Anion Gap 13 (5-15)
[2024-10-27 13:34] LABS: Calcium 10.1 mg/dL (8.7-10.4)
[2024-10-27 13:37] LABS: Carbon Dioxide 20 mmol/L (20-31); Potassium 3.2 mmol/L (3.5-5.1)
[2024-10-27 13:38] LABS: BUN/Creatinine Ratio 11.4 (10.0-20.0)
[2024-10-27 13:41] LABS: Blood Urea Nitrogen 9 mg/dL (9-23); Glucose 106 mg/dL (74-106)
== END 2024-10-27 16:30 | disposition home or self-care (01) ==
LOC: ER 12:06
DX: R10.84 Generalized abdominal pain (principal); R11.2 Nausea with vomiting, unspecified; F41.9 Anxiety disorder, unspecified; J45.909 Unspecified asthma, uncomplicated; F32.A Depression, unspecified; Z79.899 Other long term (current) drug therapy; Z87.440 Personal history of urinary (tract) infections; Z90.49 Acquired absence of other specified parts of digestive tract; Z91.041 Radiographic dye allergy status; Z98.51 Tubal ligation status; Z88.0 Allergy status to penicillin; Z88.8 Allergy status to other drugs, medicaments and biological substances
CPT/HCPCS: 36415; 74176; 80048; 81001; 85025

== ENCOUNTER 2024-12-25 16:07 | Emergency (ER) | payer MEDICAID ==
[~2024-12-25] VITALS: Ht 167.6 cm; Wt 52.2 kg
[2024-12-25 16:51] VITALS: PULSE 69; RESP 16; O2SAT 100
--- NOTE | 2024-12-25 17:03 | ED.PDOC ---
HPI (NEURO) HPI Comments This is a 29 year-old female, with a Hx of non epileptic metabolic seizures, who presents to the ED via EMS with a chief complaint of seizure minutes ago. Per EMS, patient had a witnessed seizure at [facility] lasting 30 seconds, where she fell onto her face, breaking her front top teeth, and cut the chin. Patient reports additional R elbow pain, L knee pain, and chin pain following seizure activity. Patient reports last seizure was x3 years ago and is currently not taking any seizure medication as she has allergic responses. Patient reports being seen by a overhauler helper recently. Patient has no further complaints at this time and otherwise denies dizziness, headache, slurred speech, chest pain, N/V/D, fever, or chills. Vital signs were stable at arrival. Chief Complaint: Seizure Time Seen by MD: 16:30 Primary Care Provider: UNKNOWN Reviewed Notes: Nurses Notes, Laser Systems Engineer Notes, Medications, Allergies Information Source: Patient, Emergency Med Personnel Mode of Arrival: EMS Severity: Moderate Headache Severity: Moderate Prehospital treatment: 12 Lead EKG, Accucheck (114), IVF Headache Location: Frontal Seizure Location: Generalized Onset: At rest Circumstances: Spontaneous Symptoms: Syncope Before: Normal After: Headache History of: Other (Nonepileptic seizures) Associated Signs and Symptoms: Headache, Other (seizure , dental trauma) Past Medical History PAST MEDICAL HISTORY: Anxiety, Asthma, Depression, PE, Seizures, UTI'S Past Medical History (Other): Diverticulosis Surgical History: Appendectomy, Tubal Ligation DRUPAL DEVELOPER History: No Pertinent DRUPAL DEVELOPER History Family History Family History: Reviewed,noncontributory to illness, Family hx of DM, Family hx of Cancer, Family hx of heart nirmal Social History Smoker: Non-Smoker Alcohol: Denies ETOH Use Drugs: Denies Drug Use Lives In: Home Constitutional: denies: chills, diaphoresis, fatigue, fever, malaise, sweats, weakness, others EENTM: reports: others (Dental pain); denies: blurred vision, double vision, ear bleeding, ear discharge, ear drainage, ear pain, ear ringing, eye pain, eye redness, hearing loss, mouth pain, mouth swelling, nasal discharge, nose bleeding, nose congestion, nose pain, photophobia, tearing, throat pain, throat swelling, voice changes Respiratory: denies: cough, hemoptysis, orthopnea, SOB at rest, shortness of breath, SOB with excertion, stridor, wheezing, others Cardiovascular: denies: chest pain, dizzy spells, diaphoresis, Dyspnea on exertion, edema, irregular heart beat, left arm pain, lightheadedness, palpitations, PND, syncope, others Gastrointestinal: denies: abdomen distended, abdominal pain, blood streaked bowels, constipated, diarrhea, dysphagia, difficulty swallowing, hematemesis, melena, nausea, poor appetite, poor fluid intake, rectal bleeding, rectal pain, vomiting, others Genitourinary: denies: abnormal vagina bleeding, burning, dyspareunia, dysuria, flank pain, frequency, hematuria, incontinence, pain, , vagina discharge, urgency, others Neurological: reports: headache, seizure; denies: dizziness, fainting, left sided numbness, left sided weakness, numbness, paresthesia, pre-existing deficit, right sided numbness, right sided weakness, speech problems, tingling, tremors, weakness, others Musculoskeletal: reports: others (Right elbow, left knee pain); denies: back pain, gout, joint pain, joint swelling, muscle pain, muscle stiffness, neck pain Integumetry: denies: bruises, change in color, change in hair/nails, dryness, laceration, lesions, lumps, rash, wounds, others Allergic/Immunocompromised: denies: Difficulty Healing, Frequent Infections, Hives, Itching, others Hematologic/Lymphatic: denies: anemia, blood clots, easy bleeding, easy bruising, swollen glands, others Endocrine: denies: excessive hunger, excessive sweating, excessive thirst, excessive urination, flushing, intolerance to cold, intolerance to heat, unexplained weight gain, unexplained weight loss, others Psychiatric: denies: anxiety, bipolar disorder, depression, hopeless, panic disorder, schizophrenia, sleepless, suicidal, others All Other Systems: Reviewed and Negative Physical Exam General Appearance: Moderate Distress (Wander distress due to elbow, knee and head pain.), Normal HEENT: Pharynx Normal, TMs Normal, Other (Patient has suffered trauma to her 8th and 9th tooth as those are missing. Teeth appeared to be capped as there was not much blood loss. Forehead and patient abrasion noted. No active bleed. No laceration.) Neck: Full Range of Motion, Non-Tender, Normal, Normal Inspection Respiratory: Chest Non-Tender, Lungs Clear, No Accessory Muscle Use, No Respiratory Distress, Normal Breath Sounds Cardiovascular: No Edema, No JVD, No Murmur, No Gallop, Normal Peripheral Pulses, Regular Rate/Rhythm Breast Exam: Deferred Gastrointestinal: No Organomegaly, Non Tender, No Pulsatile Mass, Normal Bowel Sounds, Soft Genitalia: Deferred Pelvic: Deferred Rectal: Deferred Extremities: Other (Diffuse right elbow pain over the olecranon. Mild edema and erythema noted. Mild reduced range of motion. Left knee reveals similar presentation with mild edema and erythema. Mild reduced range of motion.) Neurologic: Alert Cerebellar Function: NOT DONE Reflexes: NOT DONE Skin: Dry, Normal Color, Warm Lymphatic: No Adenopathy Was a procedure done? Was a procedure done?: No Differential Diagnosis (SZ) Seizure: Closed Head Injury, Syncope, Epilepsy-Status, Other (Nonepileptic seizure, cellulitis, electrolyte abnormality, UTI) X-Ray, Labs, Meds, VS Vital Signs Date Time Temp Pulse Resp B/P (MAP) Pulse Ox O2 Delivery O2 Flow Rate FiO2 12/25/24 18:00 66 16 102/57 (72) 100 12/25/24 16:58 100 Room Air* 0 21 12/25/24 16:51 69 16 100 Room Air* 0 21 12/25/24 16:49 98.1 69 16 104/56 (72) 100 98.1 12/25/24 16:24 97.5 96 16 103/64 99 97.5 Lab Test 12/25/24 18:25 12/25/24 17:45 12/25/24 16:53 12/25/24 16:52 Range/Units Urine Color Light-yellow Yellow Urine Clarity Turbid H Clear Urine pH 6.5 5.0-9.0 Urine Specific Champion 1.020 1.001-1.035 Urine Protein Trace H Negative Urine Ketones 1+ H Negative Urine Blood Negative Negative /uL Urine Nitrite Negative Negative Urine Bilirubin Negative Negative Urine Urobilinogen Normal Negative mg/dL Urine Leukocyte Esterase 2+ Negative /uL Urine RBC 1 0 - 4 /hpf Urine Microscopic WBC 28 H 0-5 /HPF Urine Squamous Epithelial Cells Mod <5 /hpf Urine Bacteria None seen None Seen /hpf Urine Glucose Normal Normal mg/dL Urine Test Negative Negative Troponin I High Sensitivity 4 3 L </=34 ng/L White Blood Count 10.0 4.4-10.8 10^3/uL Red Blood Count 4.70 4.0-5.20 10^6/uL Hemoglobin 14.1 12.2-16.2 g/dL Hematocrit 42.3 36.0-46.0 % Mean Corpuscular Volume 89.9 80.0-100.0 fL Mean Corpuscular Hemoglobin 30.0 28.0-32.0 pg Mean Corpuscular Hemoglobin Concent 33.4 32.0-36.0 g/dL Red Cell Distribution Width 13.1 11.8-14.3 % Platelet Count 224 140-450 10^3/uL Mean Platelet Volume 8.4 6.9-10.8 fL Neutrophils (%) (Auto) 76.8 37.0-80.0 % Lymphocytes (%) (Auto) 15.9 10.0-50.0 % Monocytes (%) (Auto) 6.0 0.0-12.0 % Eosinophils (%) (Auto) 0.7 0.0-7.0 % Basophils (%) (Auto) 0.6 0.0-2.0 % Neutrophils # (Auto) 7.7 1.6-8.6 10 ^3/uL Lymphocytes # (Auto) 1.6 0.4-5.4 10 ^3/uL Monocytes # (Auto) 0.6 0-1.3 10 ^3/uL Eosinophils # (Auto) 0.1 0-0.8 10 ^3/uL Basophils # (Auto) 0.1 0-0.2 10 ^3/uL Nucleated Red Blood Cells 0.0 % Sodium Level 139 136-145 mmol/L Potassium Level 3.8 3.5-5.1 mmol/L Chloride Level 105 98-107 mmol/L Carbon Dioxide Level 18 L 20-31 mmol/L Anion Gap 16 H 5-15 Blood Urea Nitrogen 12 9-23 mg/dL Creatinine 0.73 0.550-1.02 mg/dL Glomerular Filtration Rate Calc 113 >90 mL/min BUN/Creatinine Ratio 16.4 10.0-20.0 Serum Glucose 96 74-106 mg/dL Calcium Level 8.9 8.7-10.4 mg/dL POC Glucose 97 70-106 mg/dl Current Medications Medications (Trade) Dose Ordered Sig/Jessica Route Start Time Stop Time Status Last Admin Acetaminophen/ Hydrocodone Bitart ([place] 10/325MG Tab) 1 tab ONCE ONCE PO 12/25/24 16:45 12/25/24 16:46 DC 12/25/24 17:30 Ceftriaxone Sodium 50 ml @ 100 mls/hr ONCE ONCE IV 12/25/24 19:15 12/25/24 19:44 DC 12/25/24 19:15 Ondansetron HCl (Zofran) 4 mg ONCE ONCE IV 12/25/24 19:15 12/25/24 19:17 DC 12/25/24 19:15 Oxycodone/ Acetaminophen (Percocet 5/ 325MG Tablet) 1 tab ONCE ONCE PO 12/25/24 19:15 12/25/24 19:17 DC 12/25/24 19:15 X-Ray, Labs, Meds, VS Comment All studies performed the ED were evaluated by me personally. Serum studies were unremarkable for any systemic concerns, but urinalysis confirmed a urinary tract infection. Patient was given a dose of antibiotics prior to leaving the facility.. Head CT, right elbow and left knee imaging was unremarkable for any intracranial concerns or fractures. Due to the patient's nonepileptic nature of her seizures and the inability to utilize seizure medication, patient will be transferred to a higher level of care for neurologic evaluation as our neurologist is on vacation. Spoke to Dr. Diaz at [facility]. Advised on patient presentation as well as study findings. He agreed to accept the patient is a transfer. Images Reviewed?: Images reviewed and evaluated by me Time of 1ST Reevaluation: 21:35 Reevaluation 1ST: Improved Consultation: PCP, Neurology Patient Education/Counseling: Diagnosis, Treatment Family Education/Counseling: Diagnosis, Treatment, No Family Present Departure 1 Departure Time of Disposition: 21:36 Impression: Primary Impression: Psychogenic nonepileptic seizure Additional Impressions: Dental trauma UTI (urinary tract infection) Disposition: 02 SHORT TERM HOSPITAL Condition: Stable Discharged With: Self Critical Care Note Critical Care Time?: No Stability Stability form required: No Heart Score Heart Score: Heart Score Response (Comments) Value History N/A 0 EKG N/A 0 Age N/A 0 Risk Factors N/A 0 Troponin N/A 0 Total 0 I personally scribed for RIMA ATN PAC ([email or web address]) on 12/25/24 at 17:03. Electronically submitted by Yesenia Marte ([email or web address]). I personally scribed for RIMA TAN PAC ([email or web address]) on 12/25/24 at 19:25. Electronically submitted by Yesenia Marte ([email or web address]). RIMA TAN PAC Dec 25, 2024 17:03
[2024-12-25 17:09] LABS: Hematocrit 42.3 % (36.0-46.0); Hemoglobin 14.1 g/dL (12.2-16.2); Mean Corpuscular Hemoglobin 30.0 pg (28.0-32.0); Mean Corpuscular Volume 89.9 fL (80.0-100.0); Nucleated Red Blood Cells % 0.0 %
[2024-12-25 17:23] LABS: Chloride 105 mmol/L (98-107); Potassium 3.8 mmol/L (3.5-5.1); Sodium 139 mmol/L (136-145)
[2024-12-25 17:24] LABS: Anion Gap 16 (5-15); Calcium 8.9 mg/dL (8.7-10.4)
[2024-12-25 17:27] LABS: Carbon Dioxide 18 mmol/L (20-31)
[2024-12-25 17:29] LABS: BUN/Creatinine Ratio 16.4 (10.0-20.0); Blood Urea Nitrogen 12 mg/dL (9-23); Glucose 96 mg/dL (74-106)
[2024-12-25] MEDS: HYDROcodone-ACET 10/325MG TAB PO ONE (17:30)
[2024-12-25 18:58] LABS: Urine Protein, UAD TRACE (Negative)
[2024-12-25] MEDS: OXYCODONE W/ ACETAMINOPHEN 5/325MG TABLET PO ONE (19:15)
[2024-12-25] MEDS: ONDANSETRON HCL 4 MG/2 ML VIAL IV ONE (19:15)
--- NOTE | 2024-12-25 19:41 | DVH ---
CLINICAL INDICATION: Fall/trauma pain TECHNIQUE: XYXY R ELBOW 3 VIEW XRAY Comparison: XY R SHOULDER 2+ VIEW XRAY on DOS: 12/26/23, XY R HAND 3 VIEW XRAY on DOS: 12/03/23 FINDINGS/IMPRESSION: : There is no evidence of acute fracture or dislocation. Soft tissues are unremarkable.
[2024-12-25 19:45] VITALS: O2SAT 100
--- NOTE | 2024-12-25 19:45 | DVH ---
CLINICAL INDICATION: Fall/trauma TECHNIQUE: XYXY L KNEE 3V XRAY Comparison: XY L KNEE 3V XRAY on DOS: 10/30/22 FINDINGS/IMPRESSION: : There is no evidence of acute fracture or dislocation on the single frontal view. Soft tissues are unremarkable.
--- NOTE | 2024-12-25 19:46 | DVH ---
HISTORY: Fall/facial trauma with pain TECHNIQUE: Nonenhanced axial images through the facial bones with coronal and sagittal MPR. Radiation Dose Information: CT Dose: CTDI volume is 64.17 mGy. Dose-length product is 1130.0 mGy*cm COMPARISON: CT HEAD WITHOUT CONTRAST on DOS: 12/26/23, CT HEAD WITHOUT CONTRAST on DOS: 10/11/23, CT HE AD WITHOUT CONTRAST on DOS: 06/28/23, CT HEAD WO on DOS: 06/11/23, CT HEAD WITHOUT CONTRAST on DOS: 05/31 FINDINGS: Mandible: Unremarkable Maxilla: Unremarkable Zygomatic arches: Unremarkable Nasal bone: Unremarkable Orbits: Unremarkable Sinuses: Clear Facial swelling: None IMPRESSION: No acute facial fractures. Radiation optimization: All CT scans at this facility use at least one of these dose optimization renita hniques: automated exposure control mA and/or kV adjustment per patient size (includes targeted exam s where dose is matched to clinical indication) or iterative reconstruction.
[2024-12-25 22:25] VITALS: BP 103/63; PULSE 71; RESP 17; TEMP 97.9; O2SAT 98
[2024-12-25] MEDS ORDERED: METOCLOPRAMIDE HCL 5MG/ml INJ 2ml VIAL IV ONE (23:15)
== END 2024-12-25 20:08 | disposition short-term general hospital (02) ==
LOC: EDBD 16:07 → ER 16:12
DX: F44.5 Conversion disorder with seizures or convulsions (principal); S02.5XXA Fracture of tooth (traumatic), initial encounter for closed fracture; M25.521 Pain in right elbow; M25.562 Pain in left knee; N39.0 Urinary tract infection, site not specified; F41.9 Anxiety disorder, unspecified; F32.A Depression, unspecified; J45.909 Unspecified asthma, uncomplicated; Z90.49 Acquired absence of other specified parts of digestive tract; Z98.51 Tubal ligation status; W18.39XA Other fall on same level, initial encounter; Y93.89 Activity, other specified; Y92.89 Other specified places as the place of occurrence of the external cause; Y99.8 Other external cause status
CPT/HCPCS: 36415; 70486; 73080; 73562; 80048; 81001; 81025; 82947; 84484; 85025; 96365; 96375; 99285; J0696; J2405; 82962

== ENCOUNTER 2025-01-18 12:15 | Emergency (ER) | payer MEDICAID ==
[~2025-01-18] VITALS: Ht 157.5 cm; Wt 50.0 kg
[2025-01-18 12:20] VITALS: BP 108/60; PULSE 78; RESP 18; TEMP 98.7; O2SAT 97
== END 2025-01-18 15:48 | disposition left against medical advice (07) ==
LOC: EDBD 12:15 → ER 12:15
DX: R56.9 Unspecified convulsions (principal); Z53.21 Procedure and treatment not carried out due to patient leaving prior to being seen by health care provider

== ENCOUNTER 2025-03-28 10:53 | Emergency (ER) | payer MEDICAID ==
[~2025-03-28] VITALS: Ht 157.5 cm; Wt 53.2 kg
[2025-03-28 12:12] VITALS: BP 109/67; PULSE 91; RESP 14; TEMP 98.3; O2SAT 96
--- NOTE | 2025-03-28 12:19 | DVH ---
EXAM: XY CHEST TWO VIEWS ROUTINE CLINICAL HISTORY: cough x 3 weeks, hx of pneumonia TECHNIQUE: Frontal and lateral views of the chest WID: COMPARISON: XR CHEST 1 VIEW on DOS: 07/12/24 FINDINGS: Lines and tubes: None Chest: The heart size and pulmonary vasculature is within normal limits. No pleural effusion, pneumothorax, or consolidation. The osseous structures are grossly intact. IMPRESSION: 1. No acute cardiopulmonary abnormality.
[2025-03-28] MEDS ORDERED: AZIT-185 PO (12:44)
[2025-03-28] MEDS ORDERED: PSEU1SYP6 PO (12:44)
--- NOTE | 2025-03-28 12:45 | ED.PDOC ---
SOB-HPI HPI Comments 30 year old female patient presents to clinic for cough x3 weeks. Patient states the cough is productive phlegm. Patient states the phlegm is different colors. Patient denies any blood in phlegm. Patient denies any fevers patient denies any shortness the patient denies any other symptoms. 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 History Family History Family History: Reviewed,noncontributory to illness, Family hx of DM, Family hx of Cancer, Family hx of heart nirmal Social History Smoker: Non-Smoker Alcohol: Denies ETOH Use Drugs: Denies Drug Use Lives In: Home Constitutional: denies: chills, diaphoresis, fatigue, fever, malaise, sweats, weakness, others EENTM: denies: blurred vision, double vision, ear bleeding, ear discharge, ear drainage, ear pain, ear ringing, eye pain, eye redness, hearing loss, mouth pain, mouth swelling, nasal discharge, nose bleeding, nose congestion, nose pain, photophobia, tearing, throat pain, throat swelling, voice changes, others Respiratory: reports: cough Cardiovascular: denies: chest pain, dizzy spells, diaphoresis, Dyspnea on exert ion, edema, irregular heart beat, left arm pain, lightheadedness, palpitations, PND, syncope, others Gastrointestinal: denies: abdomen distended, abdominal pain, blood streaked bowels, constipated, diarrhea, dysphagia, difficulty swallowing, hematemesis, melena, nausea, poor appetite, poor fluid intake, rectal bleeding, rectal pain, vomiting, others Genitourinary: denies: abnormal vagina bleeding, burning, dyspareunia, dysuria, flank pain, frequency, hematuria, incontinence, pain, , vagina discharge, urgency, others Neurological: denies: dizziness, fainting, headache, left sided numbness, left sided weakness, numbness, paresthesia, pre-existing deficit, right sided numbness, right sided weakness, seizure, speech problems, tingling, tremors, weakness, others Musculoskeletal: denies: back pain, gout, joint pain, joint swelling, muscle pain, muscle stiffness, neck pain, others Integumetry: denies: bruises, change in color, change in hair/nails, dryness, laceration, lesions, lumps, rash, wounds, others Allergic/Immunocompromised: denies: Difficulty Healing, Frequent Infections, Hives, Itching, others Hematologic/Lymphatic: denies: anemia, blood clots, easy bleeding, easy bruising, swollen glands, others Endocrine: denies: excessive hunger, excessive sweating, excessive thirst, excessive urination, flushing, intolerance to cold, intolerance to heat, unexplained weight gain, unexplained weight loss, others Physical Exam General Appearance: No Apparent Distress, Normal HEENT: Normal ENT Inspection, Pharynx Normal, TMs Normal Neck: Full Range of Motion, Non-Tender, Normal, Normal Inspection Respiratory: Chest Non-Tender, Lungs Clear, No Accessory Muscle Use, No Respiratory Distress, Normal Breath Sounds Cardiovascular: No Edema, No JVD, No Murmur, No Gallop, Normal Peripheral Pulses, Regular Rate/Rhythm Breast Exam: Deferred Gastrointestinal: No Organomegaly, Non Tender, No Pulsatile Mass, Normal Bowel Sounds, Soft Genitalia: Deferred Pelvic: Deferred Rectal: Deferred Extremities: No calf tenderness, Normal capillary refill, Normal inspection, Normal range of motion, Non-tender, No pedal edema Musculoskeletal : Apperance: Normal Neurologic: Alert, ribbon blocker II-XII nml as Tested, No Motor Deficits, Normal Affect, Normal Mood, No Sensory Deficits Cerebellar Function: Normal Reflexes: Normal Skin: Dry, Normal Color, Warm Lymphatic: No Adenopathy Was a procedure done? Was a procedure done?: No Differential Dx Differential Diagnosis: Asthma, Bronchitis, Pneumonia, Pharyngitis X-Ray, Labs, Meds, VS Vital Signs Date Time Temp Pulse Resp B/P (MAP) Pulse Ox O2 Delivery O2 Flow Rate FiO2 03/28/25 12:12 91 14 96 Room Air 03/28/25 12:12 98.3 91 14 109/67 (81) 96 98.3 03/28/25 11:07 14 96 Room Air* 0 21 03/28/25 11:03 98.3 91 14 109/67 96 98.3 X-Ray, Labs, Meds, VS Comment On re-evaluation patient has symptomatic improvement. Patient is stable for discharge at this time. All test results and diagnostic imaging have been interpreted. All diagnostic findings, discharge care, and education instruction provided to the patient. Follow-up with PCP in 2-3 days Patient verbalized understanding, discharge instructions and agrees to treatment plan Vital signs are stable Patient is ambulatory Patient advised of which symptoms necessitate a return visit to the emergency room. Patient to return emergency room for any new worsening symptoms. Patient is aware that the purpose of this visit is for an acute medical emergency requiring emergent stabilization. Chronic conditions, including malignancies have not been ruled out. Patient is instructed to follow up with PCP as directed for continued care and workup. If unable to arrange follow up, patient is to return to the emergency room for reassessment. Patient was given verbal and written discharge instructions and acknowledges understanding Time of 1ST Reevaluation: 12:30 Reevaluation 1ST: Improved Patient Education/Counseling: Diagnosis, Treatment, Prognosis Family Education/Counseling: No Family Present SEPSIS Sepsis Screen Date sepsis recognized/suspect: Mar 28, 2025 Time Sepsis recognized/suspect: 1103 Recent Procedure: No On Antibiotic Therapy: No Respiratory Rate >20: No Heart Rate >90: Yes Temp<36 C (96.8 F) or >38.3 C: No SBP <90 or MAP <65 mmHG: No New Acute Mental Status Change: No Is the patient on CPAP, BIPAP,: No Physician Orders Chest Two Views Routine (03/28/25 11:33) Vital Signs Date Time Temp Pulse Resp B/P (MAP) Pulse Ox O2 Delivery O2 Flow Rate FiO2 03/28/25 12:12 91 14 96 Room Air 03/28/25 12:12 98.3 91 14 109/67 (81) 96 98.3 03/28/25 11:07 14 96 Room Air* 0 21 03/28/25 11:03 98.3 91 14 109/67 96 98.3 Departure 1 Departure Time of Disposition: 12:43 Impression: Primary Impression: Upper respiratory infection Qualified Codes: J06.9 - Acute upper respiratory infection, unspecified Disposition: 01 HOME / SELF CARE / HOMELESS Condition: Stable e-Prescriptions Azithromycin (ZITHROMAX TABLET) 250 Mg Tb 250 MG PO DAILY for 5 Days, #6 TAB 0 Refills Patient to take 2 tablets on day 1, patient is take 1 tablet days 2 through 4 Prov: MICHAEL HAYS 03/28/25 [id number] (Bromphen/Pseudoephedrine 30-2-10 mg/5Ml) 1 Syp Syp 10 ML PO Q6HP PRN for 10 Days, #400 ML Prov: MICHAEL HAYS [facility] 03/28/25 Critical Care Note Critical Care Time?: No Stability Stability form required: No Heart Score Heart Score: Heart Score Response (Comments) Value History N/A 0 EKG N/A 0 Age N/A 0 Risk Factors N/A 0 Troponin N/A 0 Total 0 MICHAEL HAYS [facility] Mar 28, 2025 12:45
== END 2025-03-28 13:23 | disposition home or self-care (01) ==
LOC: ER 10:53
DX: J06.9 Acute upper respiratory infection, unspecified (principal); J45.909 Unspecified asthma, uncomplicated; Z98.51 Tubal ligation status; Z90.49 Acquired absence of other specified parts of digestive tract; Z79.899 Other long term (current) drug therapy
CPT/HCPCS: 71046